=== PATIENT | female | born 1980 | race Caucasian/White ===

== ENCOUNTER 2021-08-11 12:35 | Outpatient (REF) | payer MEDICAID, SELFPAY ==
--- NOTE | ~2021-08-11 | MM_ITS ---
EXAMINATION: MM SCREENING DIGITAL BREAST TOMOSYNTHESIS, BILATERAL CLINICAL INFORMATION: Screening. Asymptomatic. Age 41. No prior breast imaging. Family history breast cancer, maternal grandmother. The lifetime risk of breast cancer based on the Tyrer-Cuzick Model is 22%. COMPARISON: None (current study represents initial baseline exam). TECHNIQUE: Digital breast tomosynthesis is performed in both the craniocaudal and mediolateral oblique views along with computer-aided detection (CAD). Synthesized 2D images are generated from the tomosynthesis. FINDINGS: There are scattered areas of fibroglandular density (ACR BI-RADS breast composition Category b). Right breast has a smooth nodule central 3:00 position mid depth approximately 0.7 x 0.6 cm, possibly a cyst or intramammary node. As this represents baseline exam, patient will be recalled for additional targeted ultrasound to further characterize. The remainder of the breasts show no significant mass or architectural abnormality. No abnormal calcifications. The axilla and skin contours are unremarkable. MM/MM tomosynthesis screening BI IMPRESSION: 1. Right: Nodule central 3:00 mid depth under 1 cm, possibly a cyst or intraparenchymal node. 2. Left: No mammographic evidence of malignancy. ASSESSMENT: BI-RADS 0: Incomplete - Need Additional Imaging Evaluation RECOMMENDATION: 1. Targeted ultrasound right breast. 2. Radiology department staff will contact the patient for additional imaging. 3. The lifetime risk of breast cancer based on the Tyrer-Cuzick Model is 22%. Additional annual adjunct screening with breast MRI may be of benefit in women with a risk score of 20% or greater. This patient's information was entered into a reminder system with a target due date for their next mammogram.
== END 2021-08-11 12:36 | disposition home or self-care (01) ==
LOC: HO.MAMMO 12:35
PROVIDERS: PCP Internal Medicine; Visit Provider Internal Medicine
DX: Z12.31 Encounter for screening mammogram for malignant neoplasm of breast (principal)
CPT/HCPCS: 77063; 77067

== ENCOUNTER 2021-08-17 13:12 | Outpatient (REF) | payer MEDICAID, SELFPAY ==
--- NOTE | ~2021-08-17 | US_ITS ---
EXAMINATION: US DIAGNOSTIC ULTRASOUND BREAST, RIGHT CLINICAL INFORMATION: Recall from baseline mammography for smooth nodule central 3:00 right breast, possibly cyst or intramammary node. TC score 22%. Age 41. COMPARISON: Baseline mammography 08/11/2021. TECHNIQUE: Ultrasound right breast is targeted to the central breast, interrogated from all 4 quadrants. Grayscale imaging and color Doppler are performed without and with harmonics. FINDINGS: There is a simple cyst central 3:00 position anterior breast measuring 0.6 cm corresponding to finding on mammography. There is mild increased through-transmission of sound. Margins are smooth. No associated color flow. There is no solid mass or architectural abnormality or focal duct ectasia. Results are discussed with the patient at time of visit. US/US breast RT limited IMPRESSION: Incidental cyst anterior central 3:00 position 0.6 cm corresponding to the nodule on mammography. ASSESSMENT: BI-RADS 2: Benign RECOMMENDATION: 1. Routine annual mammography screening. 2. The lifetime risk of breast cancer based on the Tyrer-Cuzick Model is 22%. Additional annual adjunct screening with breast MRI may be of benefit in women with a risk score of 20% or greater. This patient's information was entered into a reminder system with a target due date for their next mammogram.
== END 2021-08-17 13:13 | disposition home or self-care (01) ==
LOC: HO.MAMMO 13:12
PROVIDERS: PCP Internal Medicine; Visit Provider Internal Medicine
DX: N63.15 Unspecified lump in the right breast, overlapping quadrants (principal)
CPT/HCPCS: 76642

== ENCOUNTER 2021-10-08 13:54 | Outpatient (REF) | payer MEDICAID, SELFPAY ==
--- NOTE | ~2021-10-08 | US_ITS ---
EXAMINATION: US ABDOMEN COMPLETE CLINICAL INFORMATION: History of hepatitis C. COMPARISON: KUB dated 03/06/2009. CT of abdomen and pelvis with contrast dated 03/05/2009. TECHNIQUE: Real-time imaging of the abdominal viscera. FINDINGS: PANCREAS: Normal. ABDOMINAL AORTA: The proximal, mid, and distal segments are normal in caliber. INFERIOR VENA CAVA: Visualized portions are normal. LIVER: The liver is normal in size. The liver contour is normal. There is increased liver echogenicity. No focal hepatic lesion. There is no intrahepatic biliary duct dilatation seen. GALLBLADDER: Surgically absent. COMMON BILE DUCT: Normal in caliber measuring 0.4 cm in diameter. RIGHT KIDNEY: No hydronephrosis. No renal calculi or focal parenchymal lesions. The kidney measures 10.0 cm in maximum dimension. There is mild pelvic fullness. LEFT KIDNEY: Normal. No hydronephrosis. No renal calculi or focal parenchymal lesions. The kidney measures 9.7 cm in maximum dimension. SPLEEN: Normal. The spleen measures 10.2 cm in maximum dimension. FREE FLUID: None. US/US abdomen complete IMPRESSION: There is mild hepatic steatosis without focal lesion. There is mild pelvic fullness right kidney. The rest of the abdominal ultrasound is unremarkable.
== END 2021-10-08 13:55 | disposition home or self-care (01) ==
LOC: HO.US 13:54
PROVIDERS: Visit Provider Internal Medicine
DX: Z86.19 Personal history of other infectious and parasitic diseases (principal)
CPT/HCPCS: 76700

== ENCOUNTER 2022-09-23 13:52 | Outpatient (REF) | payer MEDICAID, SELFPAY ==
--- NOTE | ~2022-09-23 | MM_ITS ---
EXAMINATION: MM SCREENING DIGITAL BREAST TOMOSYNTHESIS, BILATERAL CLINICAL INFORMATION: Screening. Asymptomatic. The lifetime risk of breast cancer based on the Tyrer-Cuzick Model is 23%. COMPARISON: Mammography: 08/11/2021 (baseline); right breast ultrasound 08/17/2021. TECHNIQUE: Digital breast tomosynthesis is performed in both the craniocaudal and mediolateral oblique views along with computer-aided detection (CAD). Synthesized 2D images are generated from the tomosynthesis. FINDINGS: There are scattered areas of fibroglandular density (ACR BI-RADS breast composition Category b). There are no significant masses, abnormal calcifications, or other abnormalities. There is a small circumscribed cyst central mid 3:00 right breast decreased in size from baseline exam 2021. There is no developing density or architectural abnormality. The axilla are unremarkable. MM/MM tomosynthesis screening BI IMPRESSION: No mammographic evidence of malignancy. ASSESSMENT: BI-RADS 2: Benign RECOMMENDATION: Routine annual mammography screening. This patient's information was entered into a reminder system with a target due date for their next mammogram.
== END 2022-09-23 13:53 | disposition home or self-care (01) ==
LOC: HO.MAMMO 13:52
PROVIDERS: PCP Internal Medicine; Visit Provider Internal Medicine
DX: Z12.31 Encounter for screening mammogram for malignant neoplasm of breast (principal)
CPT/HCPCS: 77063; 77067

== ENCOUNTER 2023-03-15 09:55 | Outpatient (REF) | payer MEDICAID, SELFPAY | END 2023-03-15 09:56 | disposition home or self-care (01) | LOC: HO.CHCLDS 09:55 | PROVIDERS: Visit Provider Student in an Organized Health Care Education/Training Program | DX: F39 Unspecified mood [affective] disorder (principal) | CPT/HCPCS: 36415; 80048 ==

== ENCOUNTER 2024-07-25 16:42 | Emergency (ER) | payer OTHER, MEDICAID, SELFPAY ==
--- NOTE | ~2024-07-25 | CT_ITS ---
CLINICAL HISTORY: head injury at work, neck pain CT of the cervical spine without contrast. No comparison. Findings: No acute fractures are seen. There is no subluxation. Mild degenerative changes are noted. Impression: No acute fractures. This document has been electronically signed by: Adrián Khan MD on 07/25/2024 19:00:19
--- NOTE | ~2024-07-25 | CT_ITS ---
CLINICAL HISTORY: head injury at work CT of the head without contrast. No comparison. Findings: No acute hemorrhage or infarct is seen. No masses are identified and there is no hydrocephalus. There is no mass-effect. Impression: No acute intracranial abnormality is identified. This document has been electronically signed by: Adrián Khan MD on 07/25/2024 19:00:41
[2024-07-25 17:38] VITALS: BP 162/84; PULSE 91; RESP 18; TEMP 37.1; O2SAT 92; BMI 28.9
--- NOTE | 2024-07-25 17:38 | ED.GENADULT ---
HPI - General Adult General Chief complaint: Head Injury Stated complaint: head inj/work related Time Seen by Provider: 07/25/24 20:49 Source: patient and RN notes reviewed Mode of arrival: ambulatory Limitations: no limitations History of Present Illness ED Provider: She Jones PA-C HPI narrative: This is a 44-year-old female who presents emergency department with complaints of closed head injury which occurred this morning. Patient states that while she was working, a piece of ice fell on top of her head striking her in the head. She states initially she was struck in the head while wearing hard hat however this fell off and another piece of ice struck her in the head. She denies any lost of consciousness. She is not on anticoagulation. She states that she was feeling tired however states that her workday started at 3:00 a.m.. She denies any severe headache, dizziness, blurred vision, chest pain, shortness of breath, abdominal pain, nausea, vomiting or diarrhea. No other complaints or concerns at this time. MD complaint: Head injury Onset (ago): hour(s) Location: head Radiation: non-radiation Severity: moderate Quality: aching Pain Consistency: constant Relieving factors: none Exacerbating factors: none Associated symptoms: denies other symptoms Treatments prior to arrival: none Related Data Previous Rx's ?Medication ?Instructions ?Recorded acetaminophen 500 mg tablet 1,000 mg (2 x 500 mg) PO Q8H PRN 07/25/24 (Tylenol Extra Strength) pain #30 tabs ibuprofen 600 mg tablet 600 mg PO Q6H PRN pain #30 tabs 07/25/24 Allergies Allergy/AdvReac Type Severity Reaction Status Date / Time No Known Allergies Allergy Verified 07/25/24 17:40 Review of Systems Review of Systems: Yes all other systems are reviewed and are negative Constitutional: Constitutional: Reports as per [facility] Social History Social History (Updated 12/11/23 @ 11:39 by Germaine Perry) Patient Tobacco Use Status: Current everyday Tobacco user Do you have a plan to hurt others: No Plan Physical Exam ED Vital Signs: Vital Signs - 24 hr 07/25/24 17:38 Temperature 98.8 F Pulse Rate 91 Respiratory Rate 18 Blood Pressure 162/84 H Pulse Oximetry 92 Oxygen Delivery Method Room Air BMI result Body Mass Index 28.9 Const General: cooperative, comfortable and no acute distress Orientation/consciousness: patient oriented x3 Limitations: no limitations HENMT Head: Yes normal to inspection, Yes normocephalic and Yes atraumatic Ears: hearing grossly normal bilaterally and TM's normal bilaterally (No hemotympanum) General nose exam: Normal external nose present Face and sinus: Yes normal facial exam Mouth: Normal oral and palatal mucosa present, oropharynx normal and moist mucous membranes Throat: Yes posterior oropharynx normal Eyes General: appearance normal, both eyes and all related structures Eyelids: Yes eyelids normal Conjunctivae: conjunctivae normal Sclerae: sclerae normal Pupils: Equal, round and reactive pupils present EOM: EOMs intact bilaterally Neck Other: No midline spine tenderness on examination Neck: Yes normal visual inspection, Yes full ROM and Yes no lymphadenopathy Lymphatic: no lymphadenopathy noted Chest Chest palpation & inspection: normal inspection of the chest Resp Effort & Inspection: normal respiratory effort and able to speak in complete sentences Auscultation: clear to auscultation bilaterally, no crackles, no rales, no rhonchi and no wheezes Cardio Rate: regular rate Rhythm: regular rhythm Heart sounds: S1 normal heart sound present and S2 normal heart sound present GI Inspection: Yes normal to inspection Skin General skin exam: no rashes or lesions noted Trauma: no lacerations or abrasions Wounds: no wounds Neuro General: patient oriented x3 and moves all extremities Cranial nerves: Yes Equal, round and reactive pupils present Extrem General: Yes normal to inspection Right upper extremity: normal to inspection Left upper extremity: normal to inspection Right lower extremity: normal to inspection Left lower extremity: normal to inspection Course Course Course Narrative: This is a rapid medical exam performed by Bossman Pereira NP: Additional HPI, ROS, PE not included below will be deferred to primary provider. Patient is a 44-year-old female presenting with complaint of head injury sustained at work. Ice fell from the top of a tractor trailer, striking her in the head. States the ice was 2-3 thick. Denies LOC. Not anticoagulated. Hematoma to left forehead. Plan: CT head Medical Decision Making Medical Decision Making [facility] Narrative: This is a 44-year-old female who presents emergency department with complaints of head injury which occurred at work today. On arrival, blood pressure elevated at 162/84, all other vital signs within normal limits. Patient is alert and oriented x4, no neurologic deficits on examination. Patient has mild tenderness palpation along the left frontal scalp, with hematoma noted. She was no bony step-off or deformity. No hemotympanum. CT scan of her head and C-spine were obtained which revealed no acute findings. Discussed findings with patient. Given that she has a normal neurologic examination, and does not have severe headache, dizziness, patient can be discharged home with strict return precautions. She understands and agrees with plan. Patient stable for discharge. Differential Diagnosis Differential Diagnoses: The differential diagnosis associated with the presentation includes Closed head injury, ICH, SDH, concussion Discharge Plan Discharge Clinical Impression: Closed head injury Patient Disposition: Home, Self-Care Instructions: Head Injury (ED) Additional Instructions: You were seen in the emergency department due to a head injury. Your CT scan of your head and neck do not show any new injury from the injury that occurred while at work today. Please give yourself plenty of physical and mental rest. You may develop some mild headaches, and more fatigue, this is often times seen after hitting your head. Physical and mental rest can help alleviate some of the symptoms. Avoid prolonged screen time. If any new or worsening symptoms occur including but not limited to severe headache, severe dizziness, changes in your vision, severe nausea and vomiting, please seek emergent care. You may take ibuprofen and or Tylenol as needed for your symptoms. Please apply an ice pack to the left side of your forehead. Prescriptions: New ibuprofen 600 mg tablet 600 mg PO Q6H PRN (Reason: pain) Qty: 30 0RF acetaminophen [Tylenol Extra Strength] 500 mg tablet 1,000 mg PO Q8H PRN (Reason: pain) Qty: 30 0RF Print Language: Maori
--- OUTSIDE RECORDS SUMMARY | 2024-07-25 21:01 | XMS_ITS | Encounter Summary ---
Author Organization [employer] Address [address] [place] [address] Care Team Providers Care Histologic Aide Name Role Phone Demetrio Gonzales MD Primary Care Prov ider Encounter Details Date Type Department Care Team (Late st Contact Info) Description 07/25/2024 Orders Only [facility] External Provider, [facility] Social History Tobacco Use Types Packs/Day Years Used Date Smoking Tobacco: Every Day Cigarettes 0.3 33.1 Started: 06/05/1991 Smokeless Tobacco: Never Depression Answer Date Recorded Patient Health Questionnaire-9 Score 0 11/02/2022 Housing Stability Answer Date Recorded What is your housing situation today? I have ady diamond 04/10/[address] you li ve. Do you have problems with any of the following? None of the above 04/10/2023 Food Insecurity Answer Date Recorded Within the past 12 months, y ou worried that your food would run out before you got money to buy more: Never True 04/10/2023 Within the past 12 months,th e food you bought just didn't last and you didn't have enough money to get more: Never True 11/2022 Transportation Answer Date Recorded In the past 12 months, has l ack of transportation kept you from medical appts, meetings, work or from getting things needed for daily living? No 04/10/2023 Utilities Answer Date Recorded In the past 12 months, has t he electric, gas, oil or water company threatened to shut off services in your home? No 04/10/2023 Depression Answer Date Recorded Patient Health Questionnaire-2 Score 0 11/02/2022 Comments Unknown Sex and Gender Information Value Date Recorded Sex Assigned at Female 04/04/2022 10:17 AM EDT Legal Sex Female 10:17 AM EDT Gender Identity Female 04/04/2022 10:17 AM EDT Sexual Orientation Don't know 04/04/2022 10 :17 AM EDT documented as of this encounter Plan of Treatment Not on file documented as of this encounter Procedures Procedure Name Priority Date/Time Associated Diagnosis Comments CT CERVICAL SPINE WO CONTRAST Routine 07/25/2024 7:[address] HEAD WO CONTRAST Routine 07/25/2024 7 :00 PM EST documented in this encounter Results * CT Head w/o Contrast (07/25/2024 7:00 PM EST) Anatomical Region Laterality Modality Head, Neck Computed Tomogra phy 07/25/2024 7:00 PM EST Narrative 07/25/2024 7:02 PM EST ? [facility] ?[address] ?[place] [address] ? CT Scan Report ? Signed ? Patient: Ting Gallowaysa ?MR#: [id number] ? : 1980 ?Acct:[id number] ? Age/Sex: 44 / F ?ADM Date: 07/25/24 ? Loc: HO.ED ? Attending Dr: ? Ordering Physician: Lea Pereira [employer]CH[employer]IC ?? Date of Service: 07/25/24 ?? Procedure(s): CT head/brain wo IV con ?? Accession Number(s): [id number] ? cc: Demetrio Gonzales MD; Lea Pereira NP ? Report Number: ?? [id number]: Total DLP = ??653.17 mGy-cm ? CLINICAL HISTORY: head injury at work ? CT of the head without contrast. ? No comparison. ? Findings: ?? No acute hemorrhage or infarct is seen. No masses are identified and there ?? is no hydrocephalus. There is no mass-effect. ? Impression: ?? No acute intracranial abnormality is identified. ? This document has been electronically signed by: Adrián Khan MD on ?? 07/25/2024 19:00:41 ? Dictated By: ?Juan Manuel Chowdhury MD ? Signed By: ?<Electronically signed by Juan Manuel Chowdhury MD in OV> ?07/25/24 1901 ? DD/ 1900 ? TD/TT: 07/25/241899 ? Application Support Administrator: ? Procedure Note Pat, Image - 07/25/[address] [address] [address] Scan Report Signed Patient: Anne GallowayMR#: [id number] : 1980Acct:[id number] Age/Sex: 44 / FADM Date: 07/25/24 Loc: HO.ED Attending Dr: Ordering Physician: Lea Pereira NP Date of Service: 07/25/24 Procedure(s): CT head/brain wo IV con Accession Number(s): [id number] cc: Demetrio Gonzales MD; Lea Pereira NP Report Number: [id number]: Total DLP = 653.17 mGy-cm CLINICAL HISTORY: head injury at work CT of the head without contrast. No comparison. Findings: No acute hemorrhage or infarct is seen. No masses are identified and there is no hydrocephalus. There is no mass-effect. Impression: No acute intracranial abnormality is identified. This document has been electronically signed by: Adrián Khan MD on 07/25/2024 19:00:41 Dictated By: Juan Manuel Chowdhury MD Signed By: <Electronically signed by Juan Manuel Chowdhury MD in OV> 07/25/241900 DD/ 99 TD/TT: 07/25/241899 Application Support Administrator: us [facility] External Provider IMG CT PROCEDURES Edited Result - Final * CT Cervical Spine w/o Contrast (07/25/2024 7:00 PM EST) Anatomical Region Laterality Modality Spine, C-spine Computed Tomogra phy 07/25/2024 7:0 0 PM EST Narrative 07/25/2024 7:01 PM EST ? [facility] ?[address] ?[place] [address] ? CT Scan Report ? Signed ? Patient: Galloway,Anne ?MR#: [id number] ? : 1980 ?Acct:[id number] ? Age/Sex: 44 / F ?ADM Date: 07/25/24 ? Loc: HO.ED ? Attending Dr: ? Ordering Physician: Lea Pereira NP ?? Date of Service: 07/25/24 ?? Procedure(s): CT cervical spine wo IV con ?? Accession Number(s): [id number] ? cc: Demetrio Gonzales MD; Lea Pereira NP ? Report Number: ?? [id number]: Total DLP = ??302.69 mGy-cm ? CLINICAL HISTORY: head injury at work, neck pain ? CT of the cervical spine without contrast. ? No comparison. ? Findings: ?? No acute fractures are seen. There is no subluxation. Mild degenerative ?? changes are noted. ? Impression: ?? No acute fractures. ? This document has been electronically signed by: Adrián Khan MD on ?? 07/25/2024 19:00:19 ? Dictated By: ?Juan Manuel Chowdhury MD ? Signed By: ?<Electronically signed by Juan Manuel Chowdhury MD in OV> ?07/25/24 1901 ? DD/ 1900 ? TD/TT: 07/25/24 1900 ? Application Support Administrator: ? Procedure Note Pat, Image - 07/25/[address] [place] [address] [address] Scan Report Signed Patient: Patrick Galloway#: [id number] : 1980Acct:[id number] Age/Sex: 44 / FADM Date: 07/25/24 Loc: HO.ED Attending Dr: Ordering Physician: Lea Pereira NP Date of Service: 07/25/24 Procedure(s): CT cervical spine wo IV con Accession Number(s): [id number] cc: Demetrio Gonzales MD; Lea Pereira NP Report Number: [id number]: Total DLP = 302.69 mGy-cm CLINICAL HISTORY: head injury at work, neck pain CT of the cervical spine without contrast. No comparison. Findings: No acute fractures are seen. There is no subluxation. Mild degenerative changes are noted. Impression: No acute fractures. This document has been electronically signed by: Adrián Khan MD on 07/25/2024 19:00:19 Dictated By: Juan Manuel Chowdhury MD Signed By: <Electronically signed by Juan Manuel Chowdhury MD in OV> 07/25/241900 DD/ 99 TD/TT: 07/25/241899 Application Support Administrator: [facility] External Provider IMG CT PROCEDURES Edited Result - Final documented in this encounter Visit Diagnoses Not on filedocumented in this encounter Additional Health Concerns Assessment Noted Time PHQ-9 Depression Total Score: 0 11/03/19 23 11:18 AM EDT documented as of this encounter Care Teams Histologic Aide Relationship Specialty Start Date End Date Demetrio Gonzales MD [address] [place] [id number] PCP - General Internal Medicine 03/27/19 documented as of this encounter
--- OUTSIDE RECORDS SUMMARY | 2024-07-25 21:01 | XMS_ITS | Encounter Summary ---
Author Organization [employer] Address [address] [facility] [address] [place] [address] Care Team Providers Care Engineer Station Mainline Name Role Phone Demetrio Gonzales MD Primary Care Prov ider Reason for Visit * Reason Onset Date Comments Med Refill 05/16/2023 Encounter Details Date Type Department Care Team ([facility] st Contact Info) Description 05/16/2023 Refill [facility] [address] [place] [address] Beronica Partida MD [address] [place] [address] Mild intermittent asthma without complication Social History Tobacco Use Types Packs/Day Years [...] on file documented as of this encounter Visit Diagnoses Diagnosis Mild intermittent asthma without complication documented in this encounter Additional Health Concerns Assessment Noted Time PHQ-9 Depression Total Score: 0 11/03/19 23 11:18 AM EDT documented as of this encounter Care Teams Engineer Station Mainline Relationship Specialty Start Date End Date Demetrio Gonzales MD [address] [place] [id number] PCP - General Internal Medicine 03/27/19 documented as of this encounter
--- OUTSIDE RECORDS SUMMARY | 2024-07-25 21:01 | XMS_ITS | Clinical Summary ---
Author Organization [employer] Address [address] [facility] [address] [place] [address] Care Team Providers Care Hotel Supplies Salesperson Name Role Phone Demetrio Gonzales MD Primary Care Prov ider Allergies No known active allergies Medications * This document contains information received from the source organization and may not represent a complete record from that organization. nicotine polacrilex (Nicorette) 2 MG gum Take by mouth every 2 (two) hours. 02/03/2022 Active cetirizine (ZyrTEC) 10 MG tabletIndications :Mild intermittent asthma without complication Take 1 tablet (10 mg) by mouth Once per day. 90 tablet 3 02/29/2024 02/29/20 25 Active nicotine (Nicoderm, Step 3) 7 MG/24HR patchIndications: Moderate asthma with exacerbation, unspecified whether persistent Place 1 patch on the skin 1 (one) time each day at the same time. 30 patch 05/24/2024 Active albuterol (Ventolin HFA) 108 (90 Base) MCG/ACT inhaler Inhale 2 puffs every 4 (four) hours if needed for wheezing. 18 g 1 05/27/2024 05/27/20 25 Active Active Problems Problem Noted Date Diagnosed Date Moderate asthma with exacerbation 05/24/2024 Assessment & Plan (05/25/2024 2:38 PM EST): Pt with significant wheeze in all lobes, denies associated infectious symptoms Pt has resumed smoking tobacco but is motivated to quit. Denies sputum Rx for presdnisone burst/taper which pt reports hx tolerating. X-ray not available at time of visit, pt should seek urgent care for worsening symptoms or failure to improve Chronic bipolar disorder 03/26/2024 Schizophrenia 03/26/2024 Tobacco dependence 03/26/2024 Assessment & Plan (05/25/2024 2:39 PM EST): Pt is motitaved to quit has had success with patches, patches prescribed Pain in right ankle 03/26/2024 Meralgia paresthetica, right lower limb 03/26/20 24 Hx of cholecystectomy 03/26/2024 History of migraine 03/26/2024 Class 1 obesity 03/26/2024 Asthma 03/26/2024 Arthropathy of knee 03/26/2024 Grief 02/29/2024 Assessment & Plan (02/29/2024 2:36 PM EDT): Patient lost her mom on December, willl refer to for support Screening for colon cancer 05/30/2023 Assessment & Plan (05/30/2023 12:42 PM EST): Will place GI referral for screening colon cancer Hx of hepatitis C 11/02/2022 Assessment & Plan (11/02/2022 11:36 AM EDT): Patient was sucessfully treated for hepatitis c, will order afb and liver ultrasound Chronic thumb pain, right 11/02/2022 Assessment & Plan (11/02/2022 11:38 AM EDT): Will order xray, patient refers it got twisted while lifting a object, told to rest joint, apply cold pads and take NSAIds as needed. Screening for cervical cancer 11/02/2022 Assessment & Plan (02/29/2024 2:34 PM EDT): Will send for a pap smear Assessment & Plan (11/02/2022 11:38 AM EDT): Will refer for a pap smear Encounter for immunization 05/19/2022 Acute right-sided low back pain with right-sided sciatica 05/10/2022 Overview (05/10/2022): Anne is here for injury at work when carrying a fridge. Injury happened 04/12/22. Attending PT at [facility] 2 x a week. Pain slightly better only. Smoker 05/09/2022 Assessment & Plan (02/29/2024 2:34 PM EDT): Patient stop smoking, but now restarted due to life stressors, she wants to quit will send nicotine patches, benefits discussed Assessment & Plan (05/30/2023 12:43 PM EST): Smoking 2-3 cig a day, encouraged to stop smoking, Mild intermittent asthma 05/09/2022 Assessment & Plan (02/29/2024 2:33 PM EDT): On albuterol rescue, using it less than 2 times a week, will renew medication Assessment & Plan (05/30/2023 12:43 PM EST): On albuterol rescue as needed, using it less than once a week Resolved Problems Problem Noted Date Diagnosed Date Resolved Date Mood disorder 05/09/2022 03/26/2024 Encounters Date Type Department Care Team Description 07/25/2024 Orders Only [facility] External Provider, [facility] 05/24/2024 3:40 PM EST Office Visit [facility] [address] [place] [address] Domitila Gerber NP Moderate asthma with exacerbation, unspecified whether persistent (Primary Dx); Tobacco dependence 05/24/2024 Refill [facility] [address] [place] [address] Demetrio Gonzales MD 05/24/2024 Travel from Last 3 Months Immunizations Name Administration Dates Next Due Influenza injectable quadriv alent IIV4 with preservative 03/25/2019 Influenza injectable quadrivalent preservative f ree 03/05/2020 Influenza, IIV3, injectable 03/05/2020 Influenza, seasonal, injectable, preservative fr ee 05/13/2022 Pneumococcal Polysaccharide PPSV23 03/05/2020 Tdap 07/25/2019,10/08/2014 Family History Medical History Relation Name Comments Diabetes Father Diabetes Mother Thyroid cancer Mother Cancer Sister Relation Name Status Comments Father Mother Sister Social History Tobacco Use Types Packs/Day Years Used Date Smoking Tobacco: Every Day Cigarettes 0.3 33.1 Started: 06/05/1991 Smokeless Tobacco: Never Tobacco Cessation:Ready to Q uit: Not Asked; Counseling Given: Not Answered Depression Answer Date Recorded Patient Health Questionnaire-9 [...] Don't know 04/04/2022 10 :17 AM EDT Last Filed Vital Signs Vital Sign Reading Time Taken Comments Blood Pressure 142/93 05/24/2024 3:41 PM EST Pulse 100 05/24/2024 3:41 PM EST Temperature 36.6 ??C (97.8 ??F) 05/24/2024 3:41 PM ES T Respiratory Rate 20 05/24/2024 3:41 PM EST Oxygen Saturation 95% 05/24/2024 3:41 PM EST Inhaled Oxygen Concentration - - Weight 77.8 kg (171 lb 9.6 oz) 05/24/2024 3:41 P M EST Height 158.8 cm (5' 2.5 ) 05/24/2024 3:41 PM EST Body Mass Index 30.89 05/24/2024 3:41 PM EST Plan of Treatment Health Maintenance Due Date Last Done Comments CT Colonography 1978 Colonoscopy 1978 Colorectal Cancer Screening 1978 FIT DNA/Cologuard 1978 FIT 1978 FOBT 1978 Sigmoidoscopy 1978 Alcohol/Substance Use Screening 1990 Family Planning (PISQ) 1993 Hepatitis A Vaccines (1 of 2 - Risk 2-dose series) 1997 Hepatitis B Vaccines (1 of 3 - 19+ 3-dose series) 1997 Pap Smear 1999 Cervical Cancer Screening 02/22/2008 HPV/Cotest 02/22/2008 Pneumococcal Vaccine: Pediatrics (0 to 5 Years) and At-Risk Patients (6 to 49) Years) (2 of 2 - PCV) 03/05/2021 03/05/2020 Depression Screening 11/03/2023 11/02/2022, 11/03/19 23 SDOH Screening 11/03/2023 11/02/2022 COVID-19 Vaccine ( - season) 2024 Influenza Vaccine (#1) 2024 2, 03/05/2020, 03/05/2020, Additional history exists Mammogram 09/23/2024 09/23/2022, 03/0 02/2022, 08/11/2021 Tobacco Screening 05/24/2025 05/24/2024 Lipid Panel 11/19/2027 11/18/2022 Zoster Vaccines (1 of 2) 02/22/2028 DTaP/Tdap/Td Vaccines (3 - Td or Tdap) 07/25/2029 07/25/2019, 10/08/2014 RSV Patients and Patients Aged 60 years or older (1 - 1-dose 75+ series) 2053 HIV Screening Completed 11/18/2022 HIB Vaccines Aged Out No longer eligi ble based on patient's age to complete this topic HPV Vaccines Aged Out No longer eligi ble based on patient's age to complete this topic IPV Vaccines Aged Out No longer eligi ble based on patient's age to complete this topic Meningococcal Vaccine Aged Out No kenisha tong eligible based on patient's age to complete this topic RSV under 20 months Aged Out No longe r eligible based on patient's age to complete this topic Rotavirus Vaccines Aged Out No longer eligible based on patient's age to complete this topic Procedures Procedure Name Priority Date/Time Associated Diagnosis Comments CT HEAD WO CONTRAST Routine 07/25/2024 7 :[address] CERVICAL SPINE WO CONTRAST Routine 07/25/2024 7:00 PM EST HIV 1 RNA, QN PCR W/RFL CAROL (RTI,PI,INTEGRASE) Routine 11/18/2022 11:28 AM EDT Hx of hepatitis C LIPID PANEL, STANDARD Routine 11/18/2022 11:28 AM EDT Hx of hepatitis C BI MAMMOGRAM SCREENING TOMOSYNTHESIS BILATERAL Routine 09/23/2022 2:15 PM EDT from Last 3 Months or Most Recently Relevant to Health Maintenance Results * CT Cervical Spine w/o Contrast (07/25/2024 7:00 PM EST) Anatomical Region Laterality Modality Spine, C-spine Computed Tomogra phy 07/25/2024 7:00 PM EST Narrative 07/25/2024 7:01 PM EST ? [facility] ?[address] ?[place] [address] ? CT Scan Report ? Signed ? Patient: Galloway,Anne ?MR#: [id number] ? : 1980 ?Acct:[id number] ? Age/Sex: 44 / F ?ADM Date: 02/20/25 ? Loc: HO.ED ? Attending Dr: ? Ordering Physician: Lea Pereira NP ?? Date of Service: 07/25/24 ?? Procedure(s): CT cervical spine wo IV con ?? Accession Number(s): [id number] ? cc: Demetrio Gonzales MD; Lea Pereira NP ? Report Number: ?? [id number]: Total DLP = ??302.69 mGy-cm ? CLINICAL [...] DD/ 1900 ? TD/TT: 07/25/24 1900 ? Business Dean: ? Procedure Note Donsullymaliageoffter, Image - 07/25/[address] [place] [address] [address] Scan Report Signed Patient: Patrick Galloway#: [id number] : 1980Acct:[id number] Age/Sex: 44 / FADM Date: 07/25/24 Loc: HO.ED Attending Dr: Ordering Physician: Lea Pereira NP Date of Service: 07/25/24 Procedure(s): CT cervical spine wo IV con Accession Number(s): [id number] cc: Demetrio Gonzales MD; Lea Pereira NP Report Number: [id number]: Total DLP = 302.69 mGy-cm CLINICAL HISTORY: [...] by Juan Manuel Chowdhury MD in OV> 07/25/24 190 DD/ 99 TD/TT: 07/25/241899 Business Dean: us [facility] External Provider IMG CT PROCEDURES Edited Result - Final * CT Head w/o Contrast (07/25/2024 7:00 PM EST) Anatomical Region Laterality Modality Head, Neck Computed Tomogra phy 07/25/2024 7:00 PM EST Narrative 07/25/2024 7:02 PM EST ? [facility] ?[address] ?[place], [place] [address] ? CT Scan Report ? Signed ? Patient: Anne Galloway ?MR#: [id number] ? : 1980 ?Acct:[id number] ? Age/Sex: 44 / F ?ADM Date: 07/25/24 ? Loc: HO.ED ? Attending Dr: ? Ordering Physician: Lea Pereira NP ?? Date of Service: 07/25/24 ?? Procedure(s): CT head/brain wo IV con ?? Accession Number(s): [id number] ? cc: Demetrio Gonzales MD; Lea Pereira NP ? Report Number: ?? [id number]: Total DLP = ??653.17 mGy-cm ? CLINICAL [...] DD/ 1900 ? TD/TT: 07/25/24 1900 ? Business Dean: ? Procedure Note Joe Stewart - 07/25/[address] [place] [address] CT Scan Report Signed Patient: Anne Galloway#: [id number] : 1980Acct:[id number] Age/Sex: 44 / FADM Date: 07/25/24 Loc: HO.ED Attending Dr: Ordering Physician: Lea Pereira NP Date of Service: 07/25/24 Procedure(s): CT head/brain wo IV con Accession Number(s): [id number] cc: Demetrio Gonzales MD; Lea Pereira NP Report Number: [id number]: Total DLP = 653.17 mGy-cm CLINICAL HISTORY: [...] in OV> 07/25/241900 DD/ 99 TD/TT: 07/25/241899 Business Dean: [facility] External Provider IMG CT PROCEDURES Edited Result - Final * HIV-1 RNA, Quantitative, Real-Time PCR with Reflex to Genotype (RTI, PI, Integrase) (11/18/2022 11:28 AM EDT) HIV 1 RNA, QN PCR NOT DETECTED copies/mL [facility], HIV 1 RNA, QN PCR NOT DETECTED Log copies/mL [facility], Comment: REFERENCE RANGE: NOT DETECTED copies/mL ?NOT DETECTED ??Log copies/mL This test was performed using Real-Time Polymerase Chain Reaction. Reportable range is 20 to 10,000,000 copies/mL (1.30-7.00 Log copies/mL). 11/18/2022 11:2 8 AM EDT 11/18/2022 11:28 AM EDT Narrative [facility] - 11/24/2022 8:03 PM EDT FASTING:UNKNOWN FASTING: UNKNOWN Demetrio Gallegos MD LAB BLOOD ORDERABL ES Final Result [facility] [address] [facility], [place] [address] [employer], [id number] [place] [phone] * (ABNORMAL) Lipid Panel, Standard (11/18/2022 11:28 AM EDT) [facility] Cholesterol, Total 154 <200 mg/dL [employer] [place] [employer] HDL Cholesterol 49(L) > OR = 50 mg/dL [employer] Triglycerides 53 <150 mg/dL [employer] LDL Cholesterol 91 mg/dL (calc) [employer] [place] [employer] Comment: Reference range: <100 Desirable range <100 mg/dL for primary prevention; ?? <70 mg/dL for patients with CHD or diabetic patients with > or = 2 CHD risk factors. LDL-C is now calculated using the Dayday-Levy calculation, which is a validated novel method providing better accuracy than the Friedewald equation in the estimation of LDL-C. Dayday CASIANO et al. MILAGRO. 2013;310(19): 4651-2818 (http://education.Convoke Systems.Powtoon/faq/AND445) Chol/HDLC Ratio 3.1 <5.0 (calc) [employer] [place] [employer] Non-HDL Cholesterol 105 <130 mg/dL (calc) [employer] Comment: For patients with diabetes plus 1 major ASCVD risk factor, treating to a non-HDL-C goal of <100 mg/dL (LDL-C of <70 mg/dL) is considered a therapeutic option. Blood Venous blood specimen / Unknown 11/18/2022 11:28 AM EDT 11/18/2022 11:28 AM EDT Narrative [facility] - 11/24/2022 8:03 PM EDT FASTING:UNKNOWN FASTING: UNKNOWN us Demetrio Gallegos MD LAB BLOOD ORDERABL ES Final Result [facility] [address] [facility], [place] [address] [employer] [facility] [place] [facility] [address] [place] [address] * BI Mammogram Screening Tomosynthesis Bilateral (09/23/2022 2:15 PM EDT) Anatomical Region Laterality Modality Breast Bilateral Mammography 09/23/2022 2:15 PM EDT Narrative 09/27/2022 7:27 AM EDT ? [facility] ? [address] ?[place] [address] ? Mammography Report ? Signed ? Patient: Galloway,Anne ?MR#: [id number] ? : 1980 ?Acct:[id number] ? Age/Sex: 42 / F ?ADM Date: 09/23/22 ? Loc: HO.MAMMO ? Attending Dr: Demetrio Gallegos MD ? Ordering Physician: Demetrio Gonzales MD ?Res ?? ults: 2Benign Findings ? Date of Service: 09/23/22 ?Follow Up: 1 Year From Orig ?? inal Mammogram ? Procedure(s): MM tomosynthesis screening BI ?? Accession Number(s): [id number] ? cc: Demetrio Gonzales MD ? EXAMINATION: ?? MM SCREENING DIGITAL BREAST TOMOSYNTHESIS, BILATERAL ? CLINICAL INFORMATION: ? Screening. Asymptomatic. ? The lifetime risk of breast cancer based on the Tyrer-Cuzick Model is ?? 23%. ? COMPARISON: ?? Mammography: 08/11/2021 (baseline); right breast ultrasound 08/17/2021. ? TECHNIQUE: ?? Digital breast tomosynthesis is performed in both the craniocaudal and ?? mediolateral oblique views along with computer-aided detection (CAD). ?? Synthesized 2D images are generated from the tomosynthesis. ? FINDINGS: ?? There are scattered areas of fibroglandular density (ACR BI-RADS breast ?? composition Category b). ? There are no significant masses, abnormal calcifications, or other ?? abnormalities. ?? There is a small circumscribed cyst central mid 3:00 ?? right breast decreased in size from baseline exam 2021. There is no ?? developing density or architectural abnormality. The axilla are ?? unremarkable. ? MM/MM tomosynthesis screening BI ?? IMPRESSION: ?? No mammographic evidence of malignancy. ? ASSESSMENT: ? BI-RADS 2: Benign ? RECOMMENDATION: ?? Routine annual mammography screening. ? This patient's information was entered into a reminder system with a ?? target due date for their next mammogram. ? Dictated By: ?Chino Lin MD ? Signed By: ?<Electronically signed by Chino Lin MD in OV> ?09/27/22723 ? DD/ 1415 ? TD/TT: ? Business Dean: MONIQUE ? Procedure Note Joe Stewart - 12/01/2022 [facility] [address] [place] [address] [address], [place] [address] Mammography Report Signed Patient: Anne GallowayMR#: [id number] : 1980Acct:[id number] Age/Sex: 42 / FADM Date: 09/23/22 Loc: HO.MAMMO Attending Dr: Demetrio Gallegos MD Ordering Physician: Demetrio Gonzales ults: 2Benign Findings Date of Service: 09/23/22Follow Up: 1 Year From Orig inal Mammogram Procedure(s): MM tomosynthesis screening BI Accession Number(s): [id number] cc: Demetrio Gonzales MD EXAMINATION: MM SCREENING DIGITAL BREAST TOMOSYNTHESIS, BILATERAL CLINICAL INFORMATION: Screening. Asymptomatic. The lifetime risk of breast cancer based on the Tyrer-Cuzick Model is 23%. COMPARISON: Mammography: 08/11/2021 (baseline); right breast ultrasound 08/17/2021. TECHNIQUE: Digital breast tomosynthesis is performed in both the craniocaudal and mediolateral oblique views along with computer-aided detection (CAD). Synthesized 2D images are generated from the tomosynthesis. FINDINGS: There are scattered areas of fibroglandular density (ACR BI-RADS breast composition Category b). There are no significant masses, abnormal calcifications, or other abnormalities. There is a small circumscribed cyst central mid 3:00 right breast decreased in size from baseline exam 2021. There is no developing density or architectural abnormality. The axilla are unremarkable. MM/MM tomosynthesis screening BI IMPRESSION: No mammographic evidence of malignancy. ASSESSMENT: BI-RADS 2: Benign RECOMMENDATION: Routine annual mammography screening. This patient's information was entered into a reminder system with a target due date for their next mammogram. Dictated By: Chino Lin MD Signed By: <Electronically signed by Chino Lin MD in OV> 09/27/22 0724 DD/ 1415 TD/TT: Business Dean: MONIQUE [facility] External Provider IMG BI PROCEDURES Final Result from Last 3 Months or Most Recently Relevant to Health Maintenance Insurance [facility] C3 GENERIC TPL on file * Guarantor: Anne Kirkland Account Type Relation to Patient Date of Phone Billing Address Personal/Family Self [place], [place] Care Teams Hotel Supplies Salesperson Relationship Specialty Start Date End Date Demetrio Gonzales MD [address] [place] [phone] PCP - General Internal Medicine 03/27/19
--- OUTSIDE RECORDS SUMMARY | 2024-07-25 21:01 | XMS_ITS | Clinical Summary ---
Author Organization [facility] [employer] [facility] Address [address] [place] [address] Care Team Providers Care Manager Assessment Name Role Phone Unavailable Primary Care Provider Unavailabl e Allergies No known active allergies Medications No known medications Social History Tobacco Use Types Packs/Day Years Used Date Smoking Tobacco: Every Day Smokeless Tobacco: Never Tobacco Cessation:Ready to Q uit: Yes; Counseling Given: Yes Comments Unknown Sex and Gender Information Value Date Recorded Sex Assigned at Not on file Legal Sex Female 5:06 PM EST Gender Identity Not on file Sexual Orientation Not on file Last Filed Vital Signs Vital Sign Reading Time Taken Comments Blood Pressure 124/82 07/08/2021 11:54 AM EST Pulse 88 07/08/2021 11:54 AM EST Temperature 36.8 ??C (98.2 ??F) 07/08/2021 11:[address] Respiratory Rate 18 07/08/2021 11:54 AM EST Oxygen Saturation 98% 07/08/2021 11:54 AM EST Inhaled Oxygen Concentration - - Weight 77.1 kg (170 lb) 07/08/2021 11:54 AM EST Height 160 cm (5' 3 ) 07/08/2021 11:54 AM EST Body Mass Index 30.11 07/08/2021 11:54 AM EST Plan of Treatment Health Maintenance Due Date Last Done Comments Colorectal Cancer: COLONOSCO PY Screening every 10 yrs (or Modifier) 1978 Depression: Screening Annual ly using PHQ-2/9 in Adults 18 yrs or above (or HM Modifier)([facility]) 02/22/1996 Hepatitis C Virus Infection in Adolescents and Adults: Screening (or Modifier) ([facility]) 02/22/1996 SDOH Screening Reminder: Aruna alex for all adults ([facility]) 02/22/1996 Tobacco Smoking Cessation: i n Adults excluding Women: Behavioral and Pharmacotherapy Interventions ([facility]) 02/22/1996 DTaP/Tdap/Td Vaccines ([facility]) (1 - Tdap) 1997 Cervical Cancer Screenin 1-65 yrs of age (or Modifier) 1999 Cervical Cancer Screening: P ap every 3 yrs pts age 21-65 1999 Cervical Cancer: Pap Screeni ng with Modifier timing ([facility]) 1999 Cervical Cancer: hrHPV alone or with cotesting Pap for Pts 30-65yrs screening every 5yrs ([facility]) 1999 Colorectal Cancer Screening 45 -75 Yrs (or HM Modifier) 2023 Colorectal Cancer: FLEXIBLE SIGMOIDOSCOPY Screening every 5 yrs 2023 Colorectal Cancer: Fecal Immunochemical Test (FIT) Annually [facility] 2023 Colorectal Cancer: High-sens itivity gFOBT Screening Annually [facility] 2023 Colorectal Cancer: Stool Col oguard Screening every 3 yrs 2023 Colorectal Cancer:CT Colonog rosalia Screening every 5 yrs 2023 Flu Vaccination: Yearly for ages 18mos through 64 years (or Modifier)([facility]) 01/04/2024 COVID-19 Vaccine Screening: Initial Series and Booster Status ([facility]) ( - 2023- season) 2024 Lipid Screening: Every 5 yrs for Women aged 45+ (or HM Modifier) ([facility]) 02/22/2024 Zoster/Shingles Vaccine Seri es Screening: Adults aged 18+ yrs (or HM Modifiers)([facility]) (1 of 2) 02/22/2028 Pneumococcal Vaccination Scr eening: Pts 0-19 & 19-64 yrs of age ([facility]) Aged Out No longer eligible based on patient's age to complete this topic Medical Devices Not on file
--- OUTSIDE RECORDS SUMMARY | 2024-07-25 21:01 | XMS_ITS | Clinical Summary ---
Author Organization [facility] Address [address] [place] [address] Care Team Providers Care Yard Assistant Name Role Phone Patient, Has No Pcp Or Ref Primary Care Provider Unavailable Allergies No known active allergies Medications ondansetron (ZOFRAN ODT) 4 mg disintegrating tablet Dissolve 1 tablet (4 mg total) in the mouth every 8 hours as needed for vomiting or nausea. 12 tablet Active Social History Tobacco Use Types Packs/Day Years Used Date Smoking Tobacco: Some Days Cigarettes Smokeless Tobacco: Never Tobacco Cessation:Ready to Q uit: Not Asked; Counseling Given: Not Answered Alcohol Use Standard Drinks/Week Comments Yes 0 (1 standard drink = 0.6 oz pur e alcohol) Comments Unknown Sex and Gender Information Value Date Recorded Sex Assigned at Female 03/28/2024 12:23 AM EDT Legal Sex Female 9:14 PM EDT Gender Identity Not on file Sexual Orientation Not on file Last Filed Vital Signs Vital Sign Reading Time Taken Comments Blood Pressure 136/86 03/28/2024 12:44 AM EDT Pulse 89 03/28/2024 12:44 AM EDT Temperature 36.7 ??C (98 ??F) 03/27/2024 9:35 PM EDT Respiratory Rate 20 03/28/2024 12:44 AM EDT Oxygen Saturation 99% 03/28/2024 12:44 AM EDT Inhaled Oxygen Concentration - - Weight 77.1 kg (170 lb) 03/27/2024 9:38 PM EDT Height - - Body Mass Index - - Plan of Treatment Health Maintenance Due Date Last Done Comments Cervical Cancer Screening 1978 Cologuard 1978 Colon Cancer Screening 1978 Colonoscopy 1978 FOBT / Fit Test 1978 HIV Screening 1978 HPV and Pap Smear 1978 Hepatitis C Screening 1978 Pap Smear 1978 Sigmoidoscopy 1978 Hepatitis B Vaccines (1 of 3 - 19+ 3-dose series) 1997 Depression Screening and Follow-Up 06/05/2023 COVID-19 Vaccine (1 - 2023-2 5 season) 2024 Influenza Vaccine (#1) 2024 2, 03/05/2020, 03/25/2019 Alcohol/Substance Use Screening 06/05/2024 DTaP,Tdap,and Td Vaccines (3 - Td or Tdap) 07/25/2029 07/25/2019, 10/08/2014 RSV Vaccine (60+ years old and patients) (1 - 1-dose 75+ series) 2053 Pneumococcal Vaccine: Pediatric (0-5 Years) and At-Risk Patients (6-50 Years) Aged Out 03/05/2020 No longer eligible based on patient's age to complete this topic Mammogram Discontinued 09/23/2022 Insurance [employer] Care Teams Yard Assistant Relationship Specialty Start Date End Date Patient, Has No Pcp Or Ref DO NOT EDIT THIS RECORD VIA PROVIDER ON THE FLY PCP - General Fisher Trap 03/27/24
--- OUTSIDE RECORDS SUMMARY | 2024-07-25 21:01 | XMS_ITS | Referral Summary ---
Author Organization [facility] Address [address] [place] [address] Care Team Providers Care General Science Teacher Name Role Phone Patient, Has No Pcp [...] Mass Index - - Plan of Treatment Not on file Insurance [employer] Care Teams General Science Teacher Relationship Specialty Start Date End Date Patient, Has No Pcp Or Ref DO NOT EDIT THIS RECORD VIA PROVIDER ON THE FLY PCP - General Scale Balancer 03/27/24
[2024-07-26 02:26] VITALS: BP 162/84; PULSE 91; RESP 18; TEMP 37.1; O2SAT 92
--- NOTE | 2024-07-26 02:28 | PC.NURSE ---
pt was discharged by the provider. dr Carrera
== END 2024-07-26 02:28 | disposition home or self-care (01) ==
PROVIDERS: Emergency Provider Internal Medicine; PCP Internal Medicine
DX: S09.90XA Unspecified injury of head, initial encounter (principal); R51.9 Headache, unspecified; M54.2 Cervicalgia; Y29.XXXA Contact with blunt object, undetermined intent, initial encounter; Y93.9 Activity, unspecified; Y92.9 Unspecified place or not applicable; Y99.0 Civilian activity done for income or pay
CPT/HCPCS: 70450; 72125; 99282; 99284

== ENCOUNTER → 2024-07-25 17:40 | Outpatient (BNV) | payer MEDICAID, SELFPAY | PROVIDERS: PCP Internal Medicine; Visit Provider Radiology Diagnostic Radiology | DX: M54.2 Cervicalgia (principal); S09.90XA Unspecified injury of head, initial encounter | CPT/HCPCS: 70450; 72125 ==

== ENCOUNTER 2024-08-18 08:22 | Inpatient (IN) | payer MEDICAID, SELFPAY ==
[2024-08-18] VITALS (12 sets, daily range): BP systolic 99–145; BP diastolic 57–97; PULSE 89–111; RESP 16–32; TEMP 36.3–36.9; O2SAT 86–100; BMI 28.5
--- NOTE | ~2024-08-18 | XR_ITS ---
CLINICAL HISTORY: cough 1 view chest x-ray Comparison: None Findings: The lungs are clear. Heart size is normal. No acute fracture. IMPRESSION: 1. No acute findings. This document has been electronically signed by: Dick Cruz MD on 08/18/2024 09:27:22
--- NOTE | 2024-08-18 08:28 | ED.SOB ---
HPI - SOB/Dyspnea General Chief Complaint: Dyspnea Stated Complaint: wheezing asthma Time Seen by Provider: 08/18/24 08:26 Source: patient Mode of arrival: EMS Limitations: no limitations History of Present Illness HPI Narrative: this is a 44 years old the patient with a history of asthma brought in by the EMS in respiratory distress she received the pre-hospital Solu-Medrol duo nebs. Patient stated that she got worse last night denies any fever or chills MD elicited complaint: shortness of breath and cough Pertinent past history: asthma Onset (ago): day(s) (1) Timing: constant Severity: severe Exacerbating factors: nothing Relieving factors: oxygen Known history of: asthma Associated symptoms: denies other symptoms Related Data Home Medications ?Medication ?Instructions ?Recorded ?Confirmed albuterol sulfate 90 mcg/actuation 2 puff inhalation Q4H PRN wheezing 08/18/24 08/18/24 aerosol inhaler (Ventolin HFA) melatonin 3 mg tablet 3 mg PO BEDTIME PRN Sleep 08/18/24 08/18/24 multivitamin with folic acid 400 1 tab PO DAILY 08/18/24 08/18/24 mcg tablet (Daily-Claudio (with folic acid)) Allergies Allergy/AdvReac Type Severity Reaction Status Date / Time No Known Allergies Allergy Verified 08/18/24 08:28 Review of Systems Respiratory: Respiratory: Reports as per HPI, Reports cough and Reports wheezing Neurologic: Reports system reviewed and no additional complaints, except as documented Allergic/Immunologic: Allergic/Immunologic: Reports wheezing PMFSH Past Medical History [facility] Narrative: history of asthma prior admission never intubated Medical History (Updated 08/18/24 @ 10:29 by Alex Looney MD) Cigarette smoker Asthma Social History Social History Patient Tobacco Use Status: Current someday Tobacco user Smoked in Last 30 Days: Yes Use of substances other than those prescribed or required for medical reasons: Yes Substance Use Type: Marijuana Substance Use Frequency: Occasionally Advance Directives: No Advance Directives Information Provided: No Do you have a plan to hurt others: No Plan Nutrition Risks: No Nutritional Risk Patient : No Physical Exam Vital Signs: Vital Signs: Last Vital Signs Temp 98.1 F 08/18/24 08:33 Pulse 105 H 08/18/24 09:50 Resp 17 08/18/24 09:50 BP 99/63 08/18/24 09:50 Pulse Ox 98 08/18/24 09:50 O2 Del Method Oxymask 08/18/24 09:50 O2 Flow Rate 4 08/18/24 09:50 BMI result Body Mass Index 28.5 [id number] distress Const: General: cooperative Nutritional Appearance: well nourished Orientation/consciousness: patient oriented x3 HEENT: Head: Yes normal to inspection General nose exam: Normal external nose present Face and sinus: Yes normal facial exam Mouth: Normal oral and palatal mucosa present Throat: Yes posterior oropharynx normal Neck: Neck: Yes normal visual inspection Resp: Effort & Inspection: uses accessory muscles Auscultation: wheezes Cardio: Jugular venous distension: no JVD Rate: regular rate Rhythm: regular rhythm GI: Inspection: Yes normal to inspection Auscultation: normal bowel sounds Skin: General skin exam: no rashes or lesions noted Neuro: General: patient oriented x3 Medications Administered Generic Name Dose Route Start Last Admin Trade Name Freq PRN Reason Stop Dose Admin Magnesium Sulfate 2 gm in 50 mls @ 25 mls/hr 08/18/24 08:47 08/18/24 08:51 Magnesium Sulfate/H2o IV 08/18/24 10:46 25 mls/hr ONCE ONE Administration Discontinued Medications Generic Name Dose Route Start Last Admin Trade Name Freq PRN Reason Stop Dose Admin Albuterol Sulfate 7.5 mg/ 0 mg 08/18/24 08:39 08/18/24 08:43 Albuterol/Ipratropium 3 ml INHALE 08/18/24 08:40 10 each ONCE ONE Administration Sodium Chloride 500 mls @ 999 mls/hr 08/18/24 08:45 08/18/24 09:44 Ns IV 08/18/24 09:15 Infused .Q31M JACLYN Infusion Medical Decision Making Medical Decision Making MDM Narrative: patient presented in respiratory distress history of asthma wheezing received already IV steroid and duo nebs we will continue on nebulizer do a chest x-ray Differential Diagnosis Differential Diagnoses: The differential diagnosis associated with the presentation includes exacerbation asthma/pneumonia/ influenza Admission/Observation Consideration of admission/observation: Escalation of care including admission/observation considered Consult Healthcare Provider Management of the patient was discussed with: Hospitalist Lab Data [facility] Lab Attestation statement: I reviewed the patient's lab results. 08/18/24 08:38 08/18/24 08:38 Labs: Lab Results 08/18/24 08/18/24 Range/Units 08:38 08:46 WBC 14.0 H (4.8-10.8) X10*3/uL RBC 4.58 (4.20-5.50) X10*6/uL Hgb 14.5 (12.0-16.0) g/dl Hct 41.6 (37.0-47.0) % MCV 90.8 (80.0-98.0) fL MCH 31.7 (27.0-33.0) pg MCHC 34.9 (31.0-35.0) g/dl RDW 13.2 (11.0-16.0) % Plt Count 280 (160-400) X10*3/uL MPV 9.4 (9.4-12.3) fL Immature Gran % (Auto) 0.3 (0.0-0.4) % Neut % (Auto) 68.3 (45-73) % Lymph % (Auto) 20.5 (20-40) % [place] % (Auto) 6.1 (2-11) % Eos % (Auto) 4.4 H (0-4) % Baso % (Auto) 0.4 (0-2) % Lymph # (Auto) 2.9 (1.2-4.9) X10*3/uL [place] # (Auto) 0.9 (0.1-1.2) X10*3/uL Eos # (Auto) 0.6 H (0.0-0.4) X10*3/uL Baso # (Auto) 0.1 (0.0-0.2) X10*3/uL Abs Immat Gran (auto) 0.04 H (0.00-0.03) X10*3/uL Absolute Neuts (auto) 9.6 H (2.0-8.3) x10*3/uL Absolute Nucleated RBC 0.000 (0.0-0.012) X10*3/uL Nucleated RBC % (auto) 0.0 (0.0-0.2) /100WBC VBG pH 7.43 (7.32-7.43) VBG pCO2 37 mmHg VBG pO2 75 mmHg VBG HCO3 25 (22-26) mmol/L VBG O2 Saturation 98.0 % VBG Base Excess 1.5 mmol/L Sodium 139 (135-145) mmol/L Potassium 4.0 (3.3-5.1) mmol/L Chloride 109 H (96-108) mmol/L Carbon Dioxide 23 (22-29) mmol/L Anion Gap 11 L (12-20) BUN 8 L (9-16) mg/dL Creatinine 0.64 (0.5-1.4) mg/dL Estim Creat Clear Calc 105.1 Estimated GFR > 60 Random Glucose 103 (60-115) mg/dL Calcium 8.7 D (8.4-10.2) mg/dL Total Bilirubin 0.2 (0.0-1.0) mg/dL AST 19 (5-31) U/L ALT 11 (0-31) U/L Alkaline Phosphatase 79 (39-117) U/L Total Protein 7.0 (6.5-8.0) g/dL Albumin 3.9 (3.5-5.0) g/dL Influenza Type A (PCR) NEGATIVE (Negative) Influenza Type B (PCR) NEGATIVE (Negative) RSV RNA Qual (PCR) NEGATIVE (Negative) SARS-CoV-2 RNA (RT-PCR) NEGATIVE (Negative) Independent Interpretation I performed an independent interpretation of an: Plain X-Ray Interpretation: NAD Radiology Impression Discussion of test interpretation with radiology: I have reviewed the radiologist's reading. Radiologist Impression: NAD Independent Historian Clinical information obtained from an independent historian. History obtained from or confirmed by: EMS Chronic Conditions Patient?s care impacted by: Other (Asthma) Critical Care Time Critical Care Time Critical Care Time: Yes Total Critical Care Time: 60 Attestation: multiple nebs back to back Discharge Plan Discharge Clinical Impression: Hypoxia Asthma exacerbation Qualifiers: Asthma severity: moderate Asthma persistence: persistent Qualified Code(s): J45.41 - Moderate persistent asthma with (acute) exacerbation Patient Disposition: Admitted As Inpatient
[2024-08-18] MEDS: Albuterol Sulfate 7.5 MG, Albuterol/Iprat 2.5/0.5MG 3 ML 3 ML INHALE (08:43)
[2024-08-18 08:45] LABS: MANUAL DIFF FLAG NO
[2024-08-18 08:46] LABS: Basophils Absolute Auto 0.1 X10*3/uL (0.0-0.2); Basophils Percent Auto 0.4 % (0-2); Eosinophils Absolute Auto 0.6 X10*3/uL (0.0-0.4); Eosinophils Percent Auto 4.4 % (0-4); Hematocrit 41.6 % (37.0-47.0); Hemoglobin 14.5 g/dl (12.0-16.0); Imm Gran Abs Auto 0.04 X10*3/uL (0.00-0.03); Imm Gran Pct Auto 0.3 % (0.0-0.4); Lymphocytes Absolute Auto 2.9 X10*3/uL (1.2-4.9); Lymphocytes Percent Auto 20.5 % (20-40); Mean Corpuscular HGB Conc 34.9 g/dl (31.0-35.0); Mean Corpuscular Hemoglobin 31.7 pg (27.0-33.0); Mean Corpuscular Volume 90.8 fL (80.0-98.0); Mean Platelet Volume 9.4 fL (9.4-12.3); Monocytes Absolute Auto 0.9 X10*3/uL (0.1-1.2); Monocytes Percent Auto 6.1 % (2-11); Neutrophils Absolute Auto 9.6 x10*3/uL (2.0-8.3); Neutrophils Percent Auto 68.3 % (45-73); Platelet Count 280 X10*3/uL (160-400); Red Blood Count 4.58 X10*6/uL (4.20-5.50); Red Cell Distribution Width 13.2 % (11.0-16.0)
[2024-08-18 08:49] LABS: Venous Blood Gas Refer to POC result
[2024-08-18 08:51] LABS: VBG Base Excess 1.5 mmol/L; VBG HCO3 25 mmol/L (22-26); VBG pCO2 37 mmHg; VBG pH 7.43 (7.32-7.43); VBG pO2 75 mmHg
[2024-08-18] MEDS: 0.9 % Sodium Chloride 500 ML 999 ML IV (08:51)
[2024-08-18] MEDS: Magnesium Sulfate/H2O 2 GM/50 ML PIGGYBACK IV (08:51)
[2024-08-18 09:00] LABS: Alanine Aminotransferase 11 U/L (0-31); Albumin Level 3.9 g/dL (3.5-5.0); Alkaline Phosphatase 79 U/L (39-117); Anion Gap 11 (12-20); Aspartate Amino Transferase 19 U/L (5-31); Bilirubin Total 0.2 mg/dL (0.0-1.0); Blood Urea Nitrogen 8 mg/dL (9-16); Calcium 8.7 mg/dL (8.4-10.2); Carbon Dioxide 23 mmol/L (22-29); Chloride 109 mmol/L (96-108); Creatinine Clr Calc Pharmacy 105.1; Estimated Glomerular Filt Rate > 60; Glucose Random 103 mg/dL (60-115); Sodium 139 mmol/L (135-145)
--- NOTE | 2024-08-18 09:13 | PC.NURSE ---
pt biba from home c/o increased sob/nonproductive x 1 day. pt reports hx asthma - not on home O2. pt reports using inhalers w/ minimal to no relief. pt denies chest pain/palpitations/fevers/chills. pt found at 76% on RA via FD - placed on 10L via nonrebreather. pt then placed on 6L via NC via EMS. upon ED arrival - pt a&ox4. vss and up to date. nsr on the radiographer cardiac catheterization. pt seemingly sob as she is unable to speak in full/clear sentences. wheezing noted throughout. pt positioned upright to promote patent airway. pt receiving breathing tx via EMS upon arrival. RT bedside. pt transitioned to receive breathing tx via RT upon ED arrival. pt noted to desat to 86% on RA s/p breathing tx. pt now currently on 4L via NC - SPO2 between 92%-94%. otherwise vss and up to date. sinus tachycardic s/p breathing tx - denies chest pain/palpitations. pt remains in upright position to promote patent airway. 20gIV in the right hand - labs obtained/sent to lab. IVF/medication administered per provider order. CXR pending. plan of care ongoing. call bruce placed within reach.
--- NOTE | 2024-08-18 09:28 | PC.NURSE ---
pt noted to desat to 88% on 4L via NC - attempted to place pt on 6L - SPO2 @ 90%. pt transitioned to oxymask at 4L via NC - SPO2 currently at 94%. pt remains in upright position. wob decreased at this time. vital signs otherwise stable aside from being slightly sinus tachycardic on the monitor. plan of care ongoing. call bruce placed within reach.
[2024-08-18 09:38] LABS: Influenza A PCR NEGATIVE (Negative); Influenza B PCR NEGATIVE (Negative); Resp Syncy Virus RNA Qual PCR NEGATIVE (Negative); SARS COV2 PCR INHOUSE NEGATIVE (Negative)
--- NOTE | 2024-08-18 09:42 | PM.IMHP ---
History of Present Illness Date of Service: 08/18/24 Attending physician on admission: Harrison Esparza Chief Complaint: sob/wheezing 44-year-old female with history of asthma not on home oxygen presents to the ED via EMS earlier today for evaluation of shortness of breath and wheezing. The patient reports that for the last 2 days, she has been experiencing nasal congestion and intermittently productive cough as well as headache that was significantly worse this morning with increased work of breathing and air hunger. She requested her daughter called EMS. On EMS arrival, she was satting 76% and was placed on 10 L O2 via OxyMask. She was given 125 mg IV methylprednisolone as well as to DuoNebs and has been weaned to 4 L via OxyMask on arrival. She was initially tachypneic with that has improved following treatment including 7.5 mg albuterol 2 g magnesium in the ED. She has been tachycardic likely related to albuterol. She has a leukocytosis of 14.5. Absolute esoinophils 600. Renal function and electrolyte levels normal except for chloride 109. Hepatic function within normal limits. VBGWithin normal limits. Indicative for COVID-19 RSV, influenza. CXR negative for any pneumonia. She will be admitted for further management of acute asthma exacerbation with acute hypoxemic respiratory failure. Reports at baseline uses albuterol inhaler every morning and sometimes later in the day as well. Not on any maintenance inhalers. Smokes 3 cigarettes per day, trying to quit. No drugs or alcohol. Review of Systems Review of Systems: Yes all other systems are reviewed and are negative [facility] Medical History (Updated 08/18/24 @ 10:11 by CHIO Myers) Cigarette smoker Asthma Social History Patient Tobacco Use Status: Current someday Tobacco user Substance Use Type: Marijuana Meds Allergies Allergy/AdvReac Type Severity Reaction Status Date / Time No Known Allergies Allergy Verified 08/18/24 08:28 Active Medications: Current Medications Magnesium Sulfate (Magnesium Sulfate/H2o) 2 gm in 50 mls @ 25 mls/hr IV ONCE ONE Stop: 08/18/24 10:46 Last Admin: 08/18/24 08:51 Dose: 25 mls/hr Physical Exam Vital Signs and Narrative: Vital Signs: Last Vital Signs Temp 98.1 F 08/18/24 08:33 Pulse 111 H 08/18/24 09:02 Resp 24 H 08/18/24 09:02 BP 134/77 08/18/24 09:02 Pulse Ox 94 08/18/24 09:02 O2 Del Method Nasal Cannula 08/18/24 09:02 O2 Flow Rate 4 08/18/24 09:02 BMI result Body Mass Index 28.5 Constitutional - Awake and Alert, No apparent distress Eyes - PERRLA, EOMI Cardiovascular - S1S2, RRR, No edema Respiratory - Normal lung expansion, Normal respiratory effort, No respiratory distress, diffuse bilateral wheezing with coarse lung sounds/rhonchi Gastrointestinal - NT / ND; +BS; No rebound or guarding Extremities - no calf tenderness bilaterally, no swelling Skin - Warm/Dry Neurological - Alert & oriented x3 Psychological - Appropriate affect Results Labs 08/18/24 08:38 08/18/24 08:38 Labs: Laboratory Results - last 24 hr 08/18/24 08/18/24 08:38 08:46 MCV 90.8 MCH 31.7 MCHC 34.9 RDW 13.2 Plt Count 280 MPV 9.4 Immature Gran % (Auto) 0.3 Neut % (Auto) 68.3 Lymph % (Auto) 20.5 [place] % (Auto) 6.1 Eos % (Auto) 4.4 H Baso % (Auto) 0.4 Lymph # (Auto) 2.9 [place] # (Auto) 0.9 Eos # (Auto) 0.6 H Baso # (Auto) 0.1 Abs Immat Gran (auto) 0.04 H Absolute Neuts (auto) 9.6 H Absolute Nucleated RBC 0.000 Nucleated RBC % (auto) 0.0 VBG pH 7.43 VBG pCO2 37 VBG pO2 75 VBG HCO3 25 VBG O2 Saturation 98.0 VBG Base Excess 1.5 Anion Gap 11 L Estim Creat Clear Calc 105.1 Estimated GFR > 60 Random Glucose 103 Calcium 8.7 D Total Bilirubin 0.2 AST 19 ALT 11 Alkaline Phosphatase 79 Total Protein 7.0 Albumin 3.9 Influenza Type A (PCR) NEGATIVE Influenza Type B (PCR) NEGATIVE RSV RNA Qual (PCR) NEGATIVE SARS-CoV-2 RNA (RT-PCR) NEGATIVE Assessment and Plan (1) Acute hypoxemic respiratory failure: Status: Acute (2) Asthma exacerbation: Status: Acute Plan 44-year-old female with history of asthma not on home oxygen admitted for further management of acute asthma exacerbation with acute hypoxemic respiratory failure # acute unspecified asthma exacerbation with acute hypoxemic respiratory failure -negative for COVID-19, RSV, flu. Check full viral respiratory panel -CXR negative for pneumonia -IV methylprednisolone 40 mg b.i.d. -DuoNebs q.4h while awake and p.r.n. -loratadine and Flonase -guaifenesin -absolute eosinophils 600. Consider allergic etiology versus viral -recommend maintenance inhaler and pulmonary referral for PFT on discharge -continue supplemental O2, wean as tolerated -smoking cessation advised #Acute respiratory distress -r/t above -stable on admission #SIRS criteria -tachycardia due to albuterol -tachypnea as above -Leukocytosis due to steroid use -no sepsis/severe sepsis #Cigarette smoking -cessation advised. Declines NRT DVT prophylaxis- lovenox full code Patient requires inpatient stay of at least 2 midnights due to acute hypoxemic respiratory failure requiring supplemental O2 up to 10 L requiring IV steroids and nebulizers with very close monitoring of respiratory status and vital signs Quality Stroke Does the patient have a stroke diagnosis?: No VTE Prior VTE?: No VTE Risk Level:: Medical - moderate - high VTE Device Contraindication: Treatment Not Indicated VTE Drug Contraindication: N/A - Med Ordered
--- NOTE | 2024-08-18 10:28 | PHA.MEDREC ---
Pharmacy Consult ? Medication Reconciliation Pharmacy has completed the medication reconciliation.Spoke with patient in ED
[2024-08-18] MEDS: Loratadine 10 MG TABLET PO (11:38)
[2024-08-18] MEDS: Enoxaparin Sodium 40 MG/0.4 ML SYRINGE SUBCUT (11:38)
[2024-08-18] MEDS: Albuterol/Iprat 2.5/0.5MG 3 ML AMPUL.NEB INHALE ×3 (12:18→19:36)
[2024-08-18 12:46] LABS: Adenovirus PCR Not Detected (Not Detect.); Bordetella parapertussis PCR Not Detected (Not Detect.); Bordetella pertussis PCR Not Detected (Not Detect.); Chlamydia pneumoniae PCR Not Detected (Not Detect.); Coronavirus 229E PCR Not Detected (Not Detect.); Coronavirus HKU1 PCR Not Detected (Not Detect.); Coronavirus NL63 PCR Not Detected (Not Detect.); Coronavirus OC43 PCR Not Detected (Not Detect.); Human metapneumovirus PCR Not Detected (Not Detect.); Influenza A PCR Not Detected (Not Detect.); Influenza B PCR Not Detected (Not Detect.); Mycoplasma pneumoniae PCR Not Detected (Not Detect.); Parainfluenza 1 PCR Not Detected (Not Detect.); Parainfluenza 2 PCR Not Detected (Not Detect.); Parainfluenza 3 PCR Not Detected (Not Detect.); Parainfluenza 4 PCR Not Detected (Not Detect.); RSV PCR Not Detected (Not Detect.); Rhino/Enterovirus PCR Not Detected (Not Detect.)
[2024-08-18 13:03] LABS: SARS-CoV-2 PCR Not Detected (Not Detect.)
[2024-08-18] MEDS: 0.9 % Sodium Chloride Flush 3 ML SYRINGE IVFLUSH (15:35)
[2024-08-18] MEDS: Fluticasone Propionate Nasal 16 GM SPRAY 1 SPRAY NOSTRIL-B ×2 (15:35→19:25)
[2024-08-18] MEDS: guaiFENesin 200 MG/10 ML 10 ML LIQUID PO (18:17)
[2024-08-18] MEDS: methylPREDNISolone Sod Succ 40 MG/ML VIAL IVPUSH (18:17)
[2024-08-19] MEDS: guaiFENesin 200 MG/10 ML 10 ML LIQUID PO ×2 (01:59→08:44)
[2024-08-19 03:06] VITALS: BP 136/64; PULSE 98; RESP 20; TEMP 36.3; O2SAT 93
[2024-08-19 06:38] LABS: Basophils Percent Auto 0.1 % (0-2); Hematocrit 39.4 % (37.0-47.0); Hemoglobin 13.2 g/dl (12.0-16.0); Imm Gran Abs Auto 0.17 X10*3/uL (0.00-0.03); Imm Gran Pct Auto 0.7 % (0.0-0.4); Lymphocytes Absolute Auto 1.4 X10*3/uL (1.2-4.9); Lymphocytes Percent Auto 6.1 % (20-40); MANUAL DIFF FLAG SCAN; Mean Corpuscular HGB Conc 33.5 g/dl (31.0-35.0); Mean Corpuscular Hemoglobin 31.5 pg (27.0-33.0); Mean Platelet Volume 11.3 fL (9.4-12.3); Monocytes Absolute Auto 0.8 X10*3/uL (0.1-1.2); Monocytes Percent Auto 3.5 % (2-11); Neutrophils Absolute Auto 20.6 x10*3/uL (2.0-8.3); Neutrophils Percent Auto 89.6 % (45-73); Platelet Count 220 X10*3/uL (160-400); Red Blood Count 4.19 X10*6/uL (4.20-5.50); Red Cell Distribution Width 13.3 % (11.0-16.0); SCAN SMEAR FLAG 1
[2024-08-19] MEDS: methylPREDNISolone Sod Succ 40 MG/ML VIAL IVPUSH (06:44)
[2024-08-19 07:03] LABS: SLIDE REVIEW VERIFIED
[2024-08-19 07:12] LABS: Blood Urea Nitrogen 10 mg/dL (9-16); Calcium 9.2 mg/dL (8.4-10.2); Estimated Glomerular Filt Rate > 60; Glucose Random 114 mg/dL (60-115)
[2024-08-19 07:21] LABS: Anion Gap 14 (12-20); Carbon Dioxide 25 mmol/L (22-29); Chloride 105 mmol/L (96-108); Potassium 4.9 mmol/L (3.3-5.1); Sodium 139 mmol/L (135-145)
[2024-08-19 07:43] VITALS: BP 101/58; PULSE 73; RESP 16; TEMP 37.2; O2SAT 90
[2024-08-19] MEDS: Albuterol/Iprat 2.5/0.5MG 3 ML AMPUL.NEB INHALE (08:25)
[2024-08-19 08:27] VITALS: PULSE 89; RESP 16; O2SAT 94
[2024-08-19] MEDS: Enoxaparin Sodium 40 MG/0.4 ML SYRINGE SUBCUT (08:44)
[2024-08-19] MEDS: Multivitamin TABLET 1 TAB PO (08:44)
[2024-08-19] MEDS: Fluticasone Propionate Nasal 16 GM SPRAY 1 SPRAY NOSTRIL-B (08:44)
[2024-08-19] MEDS: Loratadine 10 MG TABLET PO (08:44)
[2024-08-19] MEDS: 0.9 % Sodium Chloride Flush 3 ML SYRINGE IVFLUSH (08:46)
--- NOTE | 2024-08-19 10:50 | P.PNIM_ITS ---
Subjective Subjective Date of Service: 08/19/24 Interval History: feeling better, still having wheezing, SaO2 90% at rest dropped to 84% with ambulation Review of Systems Review of Systems: Yes all other systems are reviewed and are negative Physical Exam 2 Vital Signs: Vital Signs: Last Vital Signs Temp 98.9 F 08/19/24 07:43 Pulse 89 08/19/24 08:27 Resp 16 08/19/24 08:27 BP 101/58 L 08/19/24 07:43 Pulse Ox 90 L 08/19/24 07:43 O2 Del Method Room Air 08/19/24 07:43 O2 Flow Rate 2 08/19/24 03:06 BMI result Body Mass Index 28.5 Gen: in no acute distress HEENT: sclera anicteric, moist mucus membranes Neck: supple Lungs: scattered end-expiratory wheezing Heart: regular rate and rhythm, no murmurs Abd: soft, non-tender, non-distended Ext: no edema Skin: warm/well-perfused Neuro: alert and oriented x3, no focal findings Psych: appropriate affect Objective Data Active Medications Acetaminophen (Acetaminophen 325 Mg Tablet) 650 mg PO Q6H PRN PRN Reason: Pain, Mild 1-3,fever,headache Albuterol/Ipratropium (Albuterol/Iprat 2.5/0.5mg 3 Ml Ampul.Neb) 3 ml INHALE RQ4H WHILE AWAKE PRN PRN Reason: Shortness of Breath/Wheezing Last Admin: 08/18/24 12:18 Dose: 3 ml Documented By: ANDREW Albuterol/Ipratropium (Albuterol/Iprat 2.5/0.5mg 3 Ml Ampul.Neb) 3 ml INHALE RQ4H WHILE AWAKE [facility] Last Admin: 08/19/24 08:25 Dose: 3 ml Documented By: QUINN Calcium Carbonate (Calcium Carbonate 750 Mg Tab.Chew) 750 mg PO Q4H PRN PRN Reason: Heartburn Enoxaparin Sodium (Enoxaparin Sodium 40 Mg/0.4 Ml Syringe) 40 mg SUBCUT Q24H [facility] Last Admin: 08/19/24 08:44 Dose: 40 mg Documented By: GUALBERTO Fluticasone Propionate (Fluticasone Propionate Nasal 16 Gm [place]) 1 spray NOSTRIL-B BID [facility] Last Admin: 08/19/24 08:44 Dose: 1 spray Documented By: GUALBERTO Guaifenesin (Guaifenesin 200 Mg/10 Ml 10 Ml Liquid) 10 ml PO Q6H PRN PRN Reason: Cough Last Admin: 08/19/24 08:44 Dose: 10 ml Documented By: GUALBERTO Loratadine (Loratadine 10 Mg Tablet) 10 mg PO DAILY [facility] Last Admin: 08/19/24 08:44 Dose: 10 mg Documented By: GUALBERTO Magnesium Hydroxide (Milk Of Magnesia 30 Ml Oral.Susp) 30 ml PO DAILY PRN PRN Reason: Constipation Melatonin (Melatonin 3 Mg Tablet) 6 mg PO BEDTIME PRN PRN Reason: Insomnia Methylprednisolone Sodium Succinate (Methylprednisolone Sod Succ 40 Mg/Ml Vial) 40 mg IVPUSH Q12H [facility] Last Admin: 08/19/24 06:44 Dose: 40 mg Documented By: TAURUS Multivitamins/Vitamin C (Multivitamin Tablet) 1 tab PO DAILY [facility] Last Admin: 08/19/24 08:44 Dose: 1 tab Documented By: GUALBERTO Sodium Chloride (0.9 % Sodium Chloride Flush 3 Ml Syringe) 3 ml IVFLUSH QSHIFT [facility] Last Admin: 08/19/24 08:46 Dose: 3 ml Documented By: GUALBERTO Labs 08/19/24 05:47 08/19/24 05:47 Labs: Laboratory Results - last 24 hr 08/18/24 08/19/24 10:14 05:47 MCV 94.0 MCH 31.5 MCHC 33.5 RDW 13.3 Plt Count 220 MPV 11.3 Immature Gran % (Auto) 0.7 H Neut % (Auto) 89.6 H Lymph % (Auto) 6.1 L [place] % (Auto) 3.5 Eos % (Auto) 0.0 Baso % (Auto) 0.1 Lymph # (Auto) 1.4 [place] # (Auto) 0.8 Eos # (Auto) 0.0 Baso # (Auto) 0.0 Abs Immat Gran (auto) 0.17 H Absolute Neuts (auto) 20.6 H Absolute Nucleated RBC 0.000 Nucleated RBC % (auto) 0.0 Smear Tech's Comments VERIFIED Anion Gap 14 Estim Creat Clear Calc 116.0 Estimated GFR > 60 Random Glucose 114 Calcium 9.2 Respiratory Panel [place] See Note Adenovirus (Rapid PCR) Not Detected B.pert (TEM-PCR) Not Detected B.parapertussis DNA PCR Not Detected C. pneumoniae DNA (PCR) Not Detected Coronavirus OC43 (PCR) Not Detected Coronavirus HKU1 (PCR) Not Detected Coronavirus 229E (PCR) Not Detected Coronavirus NL63 (PCR) Not Detected Human Metapneumovir PCR Not Detected Influenza A (RT-PCR) Not Detected Influenza B (RT-PCR) Not Detected M. pneumoniae (PCR) Not Detected Parainfluenza 1 (PCR) Not Detected Parainfluenza 2 (PCR) Not Detected Parainfluenza 3 (PCR) Not Detected Parainfluenza 4 (PCR) Not Detected RSV (PCR) Not Detected Entero/Rhino (PCR) Not Detected SARS-CoV-2 RNA (RT-PCR) Not Detected Assessment and Plan (1) Asthma exacerbation: Status: Acute (2) Acute hypoxemic respiratory failure: Status: Acute Plan d2 for 44yo F with asthma admitted with hypoxia due to asthma exacerbation acute hypoxic respiratory failure due to acute asthma exacerbation - viral testing negative, CXR for pnuemonia - continue methylprednisolone, standing/prn nebs - supplemental O2, wean as tolerated SIRS, not sepsis - tachycardia due to albuterol - tachypnea due to asthma - leukocytosis due to steroids tobacco abuse - NRT VTE ppx - enoxaparin dispo - possibly home tomorrow In my clinical judgment, the patient requires continued inpatient hospitalization for the following reasons: hypoxia Total time managing care of this patient today: 35 minutes. Quality Stroke Does the patient have a stroke diagnosis?: No VTE Prior VTE?: No VTE Risk Level:: Medical - moderate - high VTE Device Contraindication: Treatment Not Indicated VTE Drug Contraindication: N/A - Med Ordered
--- NOTE | 2024-08-19 12:04 | P.DS_ITS ---
DS: Providers Provider Date of Service: 08/19/24 Date of admission: 08/18/24 10:00 Date of discharge: 08/19/24 Primary care physician: Demetrio Gallegos MD DS: Diagnosis Discharge Diagnosis (1) Asthma exacerbation: Status: Acute (2) Acute hypoxemic respiratory failure: Status: Acute DS: Summary Hospital Course Hospital Course: From the history and physical by the admitting hospitalist, CHIO Myers, 08/18/24: 44-year-old female with history of asthma not on home oxygen presents to the ED via EMS earlier today for evaluation of shortness of breath and wheezing. The patient reports that for the last 2 days, she has been experiencing nasal congestion and intermittently productive cough as well as headache that was significantly worse this morning with increased work of breathing and air hunger. She requested her daughter called EMS. On EMS arrival, she was satting 76% and was placed on 10 L O2 via OxyMask. She was given 125 mg IV methylprednisolone as well as to DuoNebs and has been weaned to 4 L via OxyMask on arrival. She was initially tachypneic with that has improved following treatment including 7.5 mg albuterol 2 g magnesium in the ED. She has been tachycardic likely related to albuterol. She has a leukocytosis of 14.5. Absolute esoinophils 600. Renal function and electrolyte levels normal except for chloride 109. Hepatic function within normal limits. VBGWithin normal limits. Indicative for COVID-19 RSV, influenza. CXR negative for any pneumonia. She will be admitted for further management of acute asthma exacerbation with acute hypoxemic respiratory failure. Reports at baseline uses albuterol inhaler every morning and sometimes later in the day as well. Not on any maintenance inhalers. Smokes 3 cigarettes per day, trying to quit. No drugs or alcohol. 44yo F with asthma admitted with hypoxia due to asthma exacerbation. Viral testing negative; CXR negative for pneumonia. Hypoxia resolved with methylprednisolone and nebulizaer treatments. SIRS physiology due to albuterol, asthma, and steroids; not sepsis. Eosinophilia suggests allergic asthma and indeed, symptoms started after cleaning a maria l basement. She was discharged on prednisone and loratadine and also counseled to quit smoking. Time Attestation Discharge Coordination Time (in mins): 35 Quality: Safe Use of Opioids Does Pt have an Active Cancer Diagnosis on the Problem List?: No Quality: Stroke Does the patient have a stroke diagnosis?: No Physical Exam Vital Signs: Vital Signs: Last Vital Signs Temp 98.9 F 08/19/24 07:43 Pulse 89 08/19/24 08:27 Resp 16 08/19/24 08:27 BP 101/58 L 08/19/24 07:43 Pulse Ox 90 L 08/19/24 07:43 O2 Del Method Room Air 08/19/24 07:43 O2 Flow Rate 2 08/19/24 03:06 BMI result Body Mass Index 28.5 Gen: in no acute distress HEENT: sclera anicteric, moist mucus membranes Neck: supple Lungs: scattered soft end-expiratory wheezes Heart: regular rate and rhythm, no murmurs Abd: soft, non-tender, non-distended Ext: no edema Skin: warm/well-perfused Neuro: alert and oriented x3, no focal findings Psych: appropriate affect DS: Data Data Completed and Pending Completed studies during hospitalization [Text1]: Laboratory Results WBC 23.0 X10*3/uL (4.8-10.8) H 08/19/24 05:47 RBC 4.19 X10*6/uL (4.20-5.50) L 08/19/24 05:47 Hgb 13.2 g/dl (12.0-16.0) 08/19/24 05:47 Hct 39.4 % (37.0-47.0) 08/19/24 05:47 MCV 94.0 fL (80.0-98.0) 08/19/24 05:47 MCH 31.5 pg (27.0-33.0) 08/19/24 05:47 MCHC 33.5 g/dl (31.0-35.0) 08/19/24 05:47 RDW 13.3 % (11.0-16.0) 08/19/24 05:47 Plt Count 220 X10*3/uL (160-400) 08/19/24 05:47 MPV 11.3 fL (9.4-12.3) 08/19/24 05:47 Immature Gran % (Auto) 0.7 % (0.0-0.4) H 08/19/24 05:47 Neut % (Auto) 89.6 % (45-73) H 08/19/24 05:47 Lymph % (Auto) 6.1 % (20-40) L 08/19/24 05:47 [place] % (Auto) 3.5 % (2-11) 08/19/24 05:47 Eos % (Auto) 0.0 % (0-4) 08/19/24 05:47 Baso % (Auto) 0.1 % (0-2) 08/19/24 05:47 Lymph # (Auto) 1.4 X10*3/uL (1.2-4.9) 08/19/24 05:47 [place] # (Auto) 0.8 X10*3/uL (0.1-1.2) 08/19/24 05:47 Eos # (Auto) 0.0 X10*3/uL (0.0-0.4) 08/19/24 05:47 Baso # (Auto) 0.0 X10*3/uL (0.0-0.2) 08/19/24 05:47 Abs Immat Gran (auto) 0.17 X10*3/uL (0.00-0.03) H 08/19/24 05:47 Absolute Neuts (auto) 20.6 x10*3/uL (2.0-8.3) H 08/19/24 05:47 Absolute Nucleated RBC 0.000 X10*3/uL (0.0-0.012) 08/19/24 05:47 Nucleated RBC % (auto) 0.0 /100WBC (0.0-0.2) 08/19/24 05:47 Smear Tech's Comments VERIFIED 08/19/24 05:47 VBG pH 7.43 (7.32-7.43) 08/18/24 08:46 VBG pCO2 37 mmHg 08/18/24 08:46 VBG pO2 75 mmHg 08/18/24 08:46 VBG HCO3 25 mmol/L (22-26) 08/18/24 08:46 VBG O2 Saturation 98.0 % 08/18/24 08:46 VBG Base Excess 1.5 mmol/L 08/18/24 08:46 Sodium 139 mmol/L (135-145) 08/19/24 05:47 Potassium 4.9 mmol/L (3.3-5.1) D 03/17/25 05:47 Chloride 105 mmol/L (96-108) 08/19/24 05:47 Carbon Dioxide 25 mmol/L (22-29) 08/19/24 05:47 Anion Gap 14 (12-20) 08/19/24 05:47 BUN 10 mg/dL (9-16) 08/19/24 05:47 Creatinine 0.58 mg/dL (0.5-1.4) 08/19/24 05:47 Estim Creat Clear Calc 116.0 08/19/24 05:47 Estimated GFR > 60 08/19/24 05:47 Random Glucose 114 mg/dL (60-115) 08/19/24 05:47 Calcium 9.2 mg/dL (8.4-10.2) 08/19/24 05:47 Total Bilirubin 0.2 mg/dL (0.0-1.0) 08/18/24 08:38 AST 19 U/L (5-31) 08/18/24 08:38 ALT 11 U/L (0-31) 08/18/24 08:38 Alkaline Phosphatase 79 U/L (39-117) 08/18/24 08:38 Total Protein 7.0 g/dL (6.5-8.0) 08/18/24 08:38 Albumin 3.9 g/dL (3.5-5.0) 08/18/24 08:38 Respiratory Panel [place] See Note 08/18/24 10:14 Adenovirus (Rapid PCR) Not Detected (Not Detect.) 08/18/24 10:14 B.pert (TEM-PCR) Not Detected (Not Detect.) 08/18/24 10:14 B.parapertussis DNA PCR Not Detected (Not Detect.) 08/18/24 10:14 C. pneumoniae DNA (PCR) Not Detected (Not Detect.) 08/18/24 10:14 Coronavirus OC43 (PCR) Not Detected (Not Detect.) 08/18/24 10:14 Coronavirus HKU1 (PCR) Not Detected (Not Detect.) 08/18/24 10:14 Coronavirus 229E (PCR) Not Detected (Not Detect.) 08/18/24 10:14 Coronavirus NL63 (PCR) Not Detected (Not Detect.) 08/18/24 10:14 Human Metapneumovir PCR Not Detected (Not Detect.) 08/18/24 10:14 Influenza A (RT-PCR) Not Detected (Not Detect.) 08/18/24 10:14 Influenza Type A (PCR) NEGATIVE (Negative) 08/18/24 08:38 Influenza B (RT-PCR) Not Detected (Not Detect.) 08/18/24 10:14 Influenza Type B (PCR) NEGATIVE (Negative) 08/18/24 08:38 M. pneumoniae (PCR) Not Detected (Not Detect.) 08/18/24 10:14 Parainfluenza 1 (PCR) Not Detected (Not Detect.) 08/18/24 10:14 Parainfluenza 2 (PCR) Not Detected (Not Detect.) 08/18/24 10:14 Parainfluenza 3 (PCR) Not Detected (Not Detect.) 08/18/24 10:14 Parainfluenza 4 (PCR) Not Detected (Not Detect.) 08/18/24 10:14 RSV (PCR) Not Detected (Not Detect.) 08/18/24 10:14 RSV RNA Qual (PCR) NEGATIVE (Negative) 08/18/24 08:38 Entero/Rhino (PCR) Not Detected (Not Detect.) 08/18/24 10:14 SARS-CoV-2 RNA (RT-PCR) Not Detected (Not Detect.) 08/18/24 10:14 Discharge Plan Discharge Anticipated Discharge Date/Time: 08/19/24 11:59 Patient Disposition: Home, Self-Care Discharge Diagnosis: hypoxia due to pneumonia Referrals: Demetrio Gonzales MD [Primary Care Provider] - 1 Week Discharge Medications: New loratadine 10 mg Tablet 10 mg PO DAILY Qty: 30 0RF prednisone 20 mg tablet 40 mg PO DAILY Qty: 8 0RF nicotine (polacrilex) 2 mg gum 2 mg buccal Q2H Qty: 100 0RF Continued melatonin 3 mg tablet 3 mg PO BEDTIME PRN (Reason: Sleep) albuterol sulfate [Ventolin HFA] 90 mcg/actuation HFA aerosol inhaler 2 puff INHALATION Q4H PRN (Reason: wheezing) multivitamin with folic acid [Daily-Claudio (with folic acid)] 400 mcg tablet 1 tab PO DAILY Discharge Orders: Discharge Order (Routine); Ordered 03/17/25 Ordered By: Yue Joel Diet: Advance to usual diet Activity on Discharge: As tolerated Stand Alone Forms: Patient Portal Discharge page Print Language: Cameroonian Care Plan Goals: recovery from asthma Health Concerns: hypoxia due to asthma Plan of Treatment: prednisone 40 mg daily x 4 days loratadine 10 mg daily albuterol as needed stop smoking; use nicotine gum to quit Please follow up with your primary care doctor within 1 week. Return to the hospital if you experience recurrent or worsening symptoms. Assessment: See Discharge Summary.
--- NOTE | 2024-08-19 13:23 | MHC.CM.PN ---
Patient discharged to home self care, prior to be seen by Case Management. DX Asthma exacerbation hypoxia. Patient arranged for transport home.
--- NOTE | 2024-08-21 13:17 | P.CDIM_ITS ---
PROVIDER RESPONSE TEXT: To clarify, the appropriate diagnosis supported by the clinical indicators: Mild intermittent QUERY TEXT: PHYSICIAN'S DOCUMENTATION REQUEST Date of Query: 08/19/2024 11:04 AM EDT Patient Name: Anne Galloway Admit Date: 08/18/2024 Dear Yue Joel MD, A review of the medical record indicates additional documentation may be needed. Please review below and update the documentation accordingly. Clinical indicators: Progress note 08/19 - Acute hypoxic respiratory failure due to acute asthma exacerbation. Continue methylprednisolone, standing/prn nebs. Supplemental O2. Based on the above, please clarify in the Progress Notes further specificity regarding the type of as thma, if known: Mild intermittent Mild persistent Moderate persistent Severe persistent Exercise induced Other (explain) Clinically unable to determine (explain) Thank you, Katy Qiu, CCS, CDIS Use of terms such as suspected, likely, concern for, or probable (associated with a specific diagnosi s that is being evaluated, monitored, or treated as if it exists) are acceptable and can be coded in the inpatient se tting, when documented at the time of discharge. Please use your independent medical judgment in providing your response. THIS QUERY IS PART OF THE PERMANENT MEDICAL RECORD
== END 2024-08-19 12:54 | disposition home or self-care (01) | DRG 141 ==
LOC: HO.ED 09:20 → HO.EDOVER 10:15 → HO.S3 10:21
PROVIDERS: Admitting Provider Physician Assistant; Emergency Provider Emergency Medicine; PCP Internal Medicine; Visit Provider Family Medicine
DX: J45.21 Mild intermittent asthma with (acute) exacerbation (principal); J96.01 Acute respiratory failure with hypoxia; R65.10 Systemic inflammatory response syndrome (SIRS) of non-infectious origin without acute organ dysfunction; F17.210 Nicotine dependence, cigarettes, uncomplicated; Z71.6 Tobacco abuse counseling; Z20.822 Contact with and (suspected) exposure to COVID-19; Z79.899 Other long term (current) drug therapy
CPT/HCPCS: 0241U; 36415; 71045; 80048; 80053; 82803; 85025; 87633; 94640; 99285; J1650; J2919; J3475

== ENCOUNTER → 2024-08-18 08:27 | Outpatient (BNV) | payer MEDICAID, SELFPAY | PROVIDERS: Emergency Provider Emergency Medicine; PCP Internal Medicine; Visit Provider Radiology Diagnostic Radiology | DX: R05.9 Cough, unspecified (principal) | CPT/HCPCS: 71045 ==

== ENCOUNTER → 2024-08-18 10:00 | Outpatient (BNV) | payer MEDICAID, SELFPAY | PROVIDERS: Admitting Provider Physician Assistant; Emergency Provider Emergency Medicine; PCP Internal Medicine; Visit Provider Physician Assistant | DX: J96.01 Acute respiratory failure with hypoxia (principal); J45.901 Unspecified asthma with (acute) exacerbation | CPT/HCPCS: 99223; 99239 ==

== ENCOUNTER 2024-09-20 20:13 | Inpatient (IN) | payer MEDICAID, SELFPAY ==
--- NOTE | ~2024-09-20 | CT_ITS ---
CLINICAL HISTORY: ?pna CT chest without contrast Comparison: None Findings: The heart is normal size. Mild mediastinal and hilar adenopathy, likely reactive. Diffuse bilateral tree-in-bud nodular consolidations. No significant pleural effusion or pneumothorax. Scattered more isolated pulmonary nodules for example in the right middle lobe measuring up to 5 mm. Per Fleischner criteria: Low-risk patients: No routine follow-up required. High-risk patients: Optional CT at 12 months Atelectasis. Hepatomegaly with steatosis and calcified granuloma in the liver. Colonic diverticulosis. Osteopenia with diffuse multilevel spondylosis. Postcholecystectomy. IMPRESSION: 1. Diffuse bilateral tree-in-bud nodular consolidations. Endobronchial pneumonia or aspiration suspected. 2. Mild mediastinal and hilar adenopathy, likely reactive. This document has been electronically signed by: Zuhair Becerra MD on 09/21/2024 02:26:11
--- NOTE | ~2024-09-20 | XR_ITS ---
CLINICAL HISTORY: Productive cough, fever, hypoxic 1 view chest x-ray Comparison: CR - XR CHEST 1V - 08/18/24 08:32 EDT Findings: Mildly diffuse interstitial opacities with bronchial wall thickening. No significant pleural effusion or pneumothorax. Heart size is normal. No acute fracture. IMPRESSION: Possible small airways disease. This document has been electronically signed by: Zuhair Becerra MD on 09/20/2024 20:59:39
[2024-09-20 20:18] VITALS: BP 125/82; PULSE 119; RESP 22; TEMP 37.3; O2SAT 82; BMI 26.3
[2024-09-20 20:19] VITALS: O2SAT 90
--- NOTE | 2024-09-20 20:23 | ED_ITS ---
HPI - SOB/Dyspnea General Chief Complaint: Dyspnea Stated Complaint: SOB, Fever, Cough w/ heavy mucus Time Seen by Provider: 09/20/24 21:00 Source: patient Mode of arrival: ambulatory Limitations: no limitations History of Present Illness ED Provider: Dr. Monica Pitts HPI Narrative: Patient comes to the emergency room complaining of 2 days of shortness of breath. According to the patient, patient has been coughing productive sputum. Patient states she only has an inhaler at home but has had no relief. Patient was hospitalized a month ago for asthma exacerbation. Patient denies any chest pain. Denies abdominal pain. Reports subjective fever. W patient drove herself to the hospital. When the patient arrived to triage, oxygen saturation was 82% on room air Related Data Home Medications ?Medication ?Instructions ?Recorded ?Confirmed albuterol sulfate 90 mcg/actuation 2 puff inhalation Q4H PRN wheezing 08/18/24 08/18/24 aerosol inhaler (Ventolin HFA) melatonin 3 mg tablet 3 mg PO BEDTIME PRN Sleep 08/18/24 08/18/24 multivitamin with folic acid 400 1 tab PO DAILY 08/18/24 08/18/24 mcg tablet (Daily-Claudio (with folic acid)) Previous Rx's ?Medication ?Instructions ?Recorded loratadine 10 mg tablet 10 mg PO DAILY #30 tabs 08/19/24 nicotine (polacrilex) 2 mg gum 2 mg buccal Q2H #100 ea 08/19/24 prednisone 20 mg tablet 40 mg (2 x 20 mg) PO DAILY #8 tabs 08/19/24 Allergies Allergy/AdvReac Type Severity Reaction Status Date / Time No Known Allergies Allergy Verified 09/20/24 20:25 Review of Systems 2 Review of Systems: Constitutional : No Weight loss, No Fever, No Chills, No Night Sweats, No Fatigue, No Malaise ENT/Mouth : No Hearing loss, No Ear Pain, No Nasal Congestion, No Sinus Pain, No Hoarseness, No sore throat, No Rhinorrhea, No Swallowing Difficulty Eyes: No Eye Pain, No Swelling, No Redness, No Foreign Body, No Discharge, No Vision Changes Cardiovascular : No Chest Pain, No SOB, No Dyspnea on Exertion, No Orthopnea, No Edema, No Palpitations Respiratory : Complaining of cough with sputum, wheezing, shortness of breath Gastrointestinal : No Nausea, No Vomiting, No Diarrhea, No Constipation, No abdominal Pain, No Hematochezia, No Melena Genitourinary : no irregular bleeding, No Dysuria, No Urinary Frequency, No Hematuria, No Urinary Incontinence, No Urgency, No Flank Pain, No Urinary Flow Changes, No Hesitancy Musculoskeletal : No joint pain, No Myalgias, No Joint Swelling Skin : No Skin Lesions, No rash Neuro : No Weakness, No Numbness, No Paresthesias, No Loss of Consciousness, No Dizziness, No Headache Psych : No Anxiety/Panic, No Depression, No SI/HI/AH/VH, No Social Issues, Heme/Lymph: No Bruising, No Bleeding,No Lymphadenopathy Endocrine : No Polyuria, No Polydipsia, No Temperature Intolerance PMFSH Past Medical History Medical History Cigarette smoker Asthma Social History Social History Household Members: Children Housing: Apartment Do you presently have visiting nurse or other home services: No Patient Tobacco Use Status: Current everyday Tobacco user Tobacco use type: Cigarette Cigarettes Per Day: 3 Substance Use Type: Marijuana Advance Directives: No Advance Directives Information Provided: No Physical Exam 2 Vital Signs: Vital Signs: Last Vital Signs Temp 98.3 F 09/20/24 22:10 Pulse 103 H 09/20/24 22:10 Resp 27 H 09/20/24 22:10 BP 119/67 09/20/24 22:10 Pulse Ox 94 09/20/24 22:10 O2 Del Method Oxymask 09/20/24 22:10 O2 Flow Rate 4 09/20/24 22:10 BMI result Body Mass Index 26.3 Const: Other: Appearance: Alert. Oriented X3. No acute distress. Eyes: Pupils equal, round and reactive to light. ENT: Pharynx normal. Neck: Normal inspection. Neck supple. No lymph nodes noted. No crepitus CVS: Normal heart rate and rhythm. Pulses normal. Normal S1 and S2 Respiratory: Patient currently on a nebulization treatment, bilateral minimal wheezing, fair to good air movement bilaterally still tachypneic Abdomen: Soft and nontender. No rigidity. No distention. Skin: Skin warm and dry. Normal skin color. Normal skin turgor. Extremities: No lower extremity edema. No Lacerations. No Rash Neuro: Oriented X 3. No motor deficit. No sensory deficit. Moving all extremities. No slurred speech. CN 2 through 12 grossly intact Psych: calm, cooperative, normal affect Course Course Course Narrative: This is a Rapid Medical Examination (RME) performed by Rajeev Quiroga PA-C in triage. Full HPI, ROS, assessment and treatment plan per primary provider in the Main ED. Hx: 44-year-old female with history of asthma presents to the ED today for evaluation of nasal congestion, productive cough, shortness of breath, body aches/leg restlessness. Admits to using her inhalers over the last few days without relief. Also tried Mucinex. No known sick contacts. PE/vitals: satting 82% on room air. placed on O2. Lungs with diminished breath sounds throughout. No adventitious breath sounds Plan: labs, cxr, viral swabs Medications Administered Discontinued Medications Generic Name Dose Route Start Last Admin Trade Name Freq PRN Reason Stop Dose Admin Albuterol Sulfate 5 mg/ 0 mg 09/20/24 20:44 09/20/24 20:46 Albuterol/Ipratropium 3 ml INHALE 09/20/24 20:45 1 each ONCE ONE Administration Magnesium Sulfate 2 gm in 50 mls @ 25 mls/hr 09/20/24 21:05 09/20/24 21:11 Magnesium Sulfate/H2o IV 09/20/24 23:04 25 mls/hr ONCE ONE Administration Methylprednisolone Sodium Succinate 125 mg 09/20/24 21:05 09/20/24 21:11 Methylprednisolone Sod Succ 125 Mg/2 Ml Vial IVPUSH 09/20/24 21:06 125 mg ONCE ONE Administration Medical Decision Making Medical Decision Making [facility] Narrative: Patient's white blood cell count 27.2 My interpretation of chest x-ray: No obvious opacities. Radiology report: Mild diffuse interstitial opacities, possible small airway disease It is possible that patient may have undiagnosed COPD. Empirically, patient was given a dose of IV azithromycin and azithromycin and IV fluids. Sepsis is not suspected I discussed the patient with Dr. Zendejas, patient being admitted Differential Diagnosis Differential Diagnoses: The differential diagnosis associated with the presentation includes (Asthma, new onset COPD, pneumonia, viral URI) Admission/Observation Consideration of admission/observation: Escalation of care including admission/observation considered (Given patient's initial presentation and low oxygen saturation, admission was considered) Lab Data MDM Lab Attestation statement: I reviewed the patient's lab results. 09/20/24 20:41 09/20/24 21:00 Labs: Lab Results 09/20/24 09/20/24 Range/Units 20:41 21:00 WBC 27.2 H (4.8-10.8) X10*3/uL RBC 4.40 (4.20-5.50) X10*6/uL Hgb 13.9 (12.0-16.0) g/dl Hct 40.3 (37.0-47.0) % MCV 91.6 (80.0-98.0) fL MCH 31.6 (27.0-33.0) pg MCHC 34.5 (31.0-35.0) g/dl RDW 13.2 (11.0-16.0) % Plt Count 282 D (160-400) X10*3/uL MPV 9.7 (9.4-12.3) fL Immature Gran % (Auto) 0.8 H (0.0-0.4) % Neut % (Auto) 87.2 H (45-73) % Lymph % (Auto) 6.4 L (20-40) % [place] % (Auto) 5.2 (2-11) % Eos % (Auto) 0.1 (0-4) % Baso % (Auto) 0.3 (0-2) % Lymph # (Auto) 1.7 (1.2-4.9) X10*3/uL [place] # (Auto) 1.4 H (0.1-1.2) X10*3/uL Eos # (Auto) 0.0 (0.0-0.4) X10*3/uL Baso # (Auto) 0.1 (0.0-0.2) X10*3/uL Abs Immat Gran (auto) 0.21 H (0.00-0.03) X10*3/uL Absolute Neuts (auto) 23.7 H (2.0-8.3) x10*3/uL Absolute Nucleated RBC 0.000 (0.0-0.012) X10*3/uL Nucleated RBC % (auto) 0.0 (0.0-0.2) /100WBC Smear Tech's Comments VERIFIED Sodium 137 (135-145) mmol/L Potassium 4.1 (3.3-5.1) mmol/L Chloride 103 (96-108) mmol/L Carbon Dioxide 23 (22-29) mmol/L Anion Gap 15 (12-20) BUN 7 L (9-16) mg/dL Creatinine 0.62 (0.5-1.4) mg/dL Estim Creat Clear Calc 108.4 Estimated GFR > 60 Random Glucose 128 H (60-115) mg/dL Calcium 9.4 (8.4-10.2) mg/dL Magnesium 1.7 (1.6-2.6) mg/dL Total Bilirubin 0.7 (0.0-1.0) mg/dL AST 22 (5-31) U/L ALT 14 (0-31) U/L Alkaline Phosphatase 107 (39-117) U/L Total Protein 7.2 (6.5-8.0) g/dL Albumin 4.0 (3.5-5.0) g/dL Influenza Type A (PCR) NEGATIVE (Negative) Influenza Type B (PCR) NEGATIVE (Negative) RSV RNA Qual (PCR) NEGATIVE (Negative) SARS-CoV-2 RNA (RT-PCR) NEGATIVE (Negative) Independent Interpretation I performed an independent interpretation of an: Plain X-Ray Radiology Impression Discussion of test interpretation with radiology: I have reviewed the radiologist's reading. Radiologist Impression: Mildly diffuse interstitial opacities with bronchial wall thickening. No significant pleural effusion or pneumothorax. Heart size is normal. No acute fracture. IMPRESSION: Possible small airways disease. Critical Care Time Critical Care Time Critical Care Time: Yes Total Critical Care Time: 60 Attestation: I have personally provided critical care time. Time includes review of lab data, radiology results, discussion with consultants, and monitoring for potential decompensation. Intervention performed as documented. Discharge Plan Discharge Clinical Impression: Asthma exacerbation Patient Disposition: Admitted As Inpatient Prescriptions: No Action melatonin 3 mg tablet 3 mg PO BEDTIME PRN (Reason: Sleep) albuterol sulfate [Ventolin HFA] 90 mcg/actuation HFA aerosol inhaler 2 puff INHALATION Q4H PRN (Reason: wheezing) multivitamin with folic acid [Daily-Claudio (with folic acid)] 400 mcg tablet 1 tab PO DAILY loratadine 10 mg Tablet 10 mg PO DAILY Qty: 30 0RF prednisone 20 mg tablet 40 mg PO DAILY Qty: 8 0RF nicotine (polacrilex) 2 mg gum 2 mg buccal Q2H Qty: 100 0RF Print Language: Albanian
--- NOTE | 2024-09-20 20:32 | PC.NURSE ---
This RN placed on O2 via nasal cannula initially at 2L-but not much uimprovement. ^L nasal cannula with SpO2:89-90%. Pt brought to room, respiratory called, primary RN at the bedside.
--- NOTE | 2024-09-20 20:43 | PC.NURSE ---
Upon patient's arrival to bedside she was found to have an SPO2 in the mid-high 80s with 6LPM via NC, pt placed on the cardiac monitor technician; sinus tach. Respiratory to bedside for assessment, confirms that the pt was moving air although there were audible wheezes. Pt's O2 sat continued to dip into the mid-high 80s while on the 6LPM NC, which did improve to the low 90s when prompted to take a deep breathe and/or cough. Pt was noted to be congested and unable to breathe through her nose, Respiratory transitioned the pt over to an oxymask at 4LPM with her O2 sat maintaining in the low 90s. Breathing treatment is being set up by RT at this time
[2024-09-20] MEDS: Albuterol Sulfate 5 MG, Albuterol/Iprat 2.5/0.5MG 3 ML 3 ML INHALE (20:46)
[2024-09-20 20:50] VITALS: PULSE 104; O2SAT 94
--- OUTSIDE RECORDS SUMMARY | 2024-09-20 20:54 | XMS_ITS | Referral Summary ---
Author Organization [facility] Address [address] [place] [address] Care Team Providers Care Calender Operator Name Role Phone Patient, Has No Pcp [...] Not on file Insurance [employer] Care Teams Calender Operator Relationship Specialty Start Date End Date Patient, Has No Pcp Or Ref DO NOT EDIT THIS RECORD VIA PROVIDER ON THE FLY PCP - General Scrub Wheel Operator 03/27/24
--- OUTSIDE RECORDS SUMMARY | 2024-09-20 20:54 | XMS_ITS | Clinical Summary ---
Author Organization [facility] Address [address] [place] [address] Care Team Providers Care Burrer Operator Name Role Phone Patient, Has No [...] Colonoscopy 1978 FOBT / Fit Test 1978 HPV and Pap Smear 1978 Pap Smear 1978 Sigmoidoscopy 1978 Hepatitis B Vaccines (1 of 3 - 19+ 3-dose series) 1997 COVID-19 Vaccine (1 - 2023-2 5 season) 2024 Alcohol/Substance Use Screening 06/05/2024 Influenza Vaccine (Season Ended) 2025 05/13/2022, 03/05/2020, 03/25/2019 DTaP,Tdap,and Td Vaccines (3 - Td or Tdap) 07/25/2029 07/25/2019, 10/08/2014 RSV Vaccine (60+ years old and patients) (1 - 1-dose 75+ series) 2053 Pneumococcal Vaccine: Pediatric (0-5 Years) and At-Risk Patients (6-50 Years) Aged Out 03/05/2020 No longer eligible based on patient's age to complete this topic Mammogram Discontinued 09/23/2022 HIV Screening Completed 11/18/2022 Insurance [employer] Care Teams Burrer Operator Relationship Specialty Start Date End Date Patient, Has No Pcp Or Ref DO NOT EDIT THIS RECORD VIA PROVIDER ON THE FLY PCP - General Farm Reporter 03/27/24
--- OUTSIDE RECORDS SUMMARY | 2024-09-20 20:55 | XMS_ITS | Encounter Summary ---
Author Organization [employer] Address [address] [address] Care Team Providers Care Public Relations Representative Name Role Phone Demetrio Gonzales MD Primary Care Prov ider Reason for Visit * Reason Onset Date Comments Nurse Triage 07/31/2024 Encounter Details Date Type Department Care Team ([facility] st Contact Info) Description 07/31/2024 Telephone [facility] MED & PEDS [address] [place] [address] Demetrio Gonzales MD [address] [place] [address] Nurse Triage Social History Tobacco Use Types Packs/Day Years Used Date Smoking Tobacco: Every Day Cigarettes 0.3 33.3 Started: 06/05/1991 Smokeless Tobacco: Never Depression Answer [...] AM EDT documented as of this encounter Miscellaneous Notes * Telephone Encounter - Ary Moore RN - 07/31/2024 12:12 PM EST Triage call Pt reports being seen at [facility] ED 07/25/24 for head injury. Pt was hit with piece of ice 2-3 inches thick after hard hat fell off. Ice came from top of trailer truck. (ED report is on the chart). Pt reports today still has mild headache and is taking tylenol with good effect. Pt reports feels like I walk a little side ways at times . Overall Pt reports improvement. TSK visit with PCP Wood today at 300pm. Insurance is verified as active prior to booking. Protocol Used: Head Injury (Adult) Protocol-Based Disposition: See in Office or Video Visit Today Video visit offered and caller accepted Positive Triage Question: * Patient wants to be seen * All higher-acuity triage questions were negative Care Advice Discussed: * Reassurance and Education - Direct Blow (Minor Bruise, Contusion) * Use a Cold Pack for Pain, Swelling, or Bruising * Expected Course * Reasons To Call Back - Severe headache lasts over 2 hours after ice pack and pain medicines - Extremity weakness or numbness occurs - Slurred speech or double vision occurs - Vomiting occurs - You become worse * Telephone Encounter - Nidia Winter - 07/31/2024 11:50 AM EST Patient calling to report ED visit on : Date: 07/25/24 Hospital: [facility] Seen for: lump on head due to and ice falling on her Symptomatic Yes some light headed *if yes message should go to Triage CT scan was done Patient advised will forward to team nurse for follow up documented in this encounter Plan of Treatment Not on file documented as of this encounter Visit Diagnoses Not on filedocumented in this encounter Additional Health Concerns Assessment Noted Time PHQ-9 Depression Total Score: 0 11/03/19 11:18 AM EDT documented as of this encounter Care Teams Public Relations Representative Relationship Specialty Start Date End Date Demetrio Gonzales MD [address] [place] [phone] PCP - General Internal Medicine 03/27/19 documented as of this encounter
--- OUTSIDE RECORDS SUMMARY | 2024-09-20 20:55 | XMS_ITS | Encounter Summary ---
Author Organization [employer] Address 75 [facility] [address] [place] [address] Care Team Providers Care Mill Representative Name Role Phone Demetrio Gonzales MD Primary Care Prov ider Reason for Visit * Reason Onset Date Comments Med Refill 05/16/2023 Encounter Details Date Type Department Care Team ([facility] st Contact Info) Description 05/16/2023 Refill [facility] MED & PEDS [address] [place] [address] Beronica Partida MD [address] [place] [address] Mild intermittent asthma without complication Social History [...] documented as of this encounter Care Teams Mill Representative Relationship Specialty Start Date End Date Demetrio Gonzales MD [address] [place] [phone] PCP - General Internal Medicine 03/27/19 documented as of this encounter
--- OUTSIDE RECORDS SUMMARY | 2024-09-20 20:55 | XMS_ITS | Clinical Summary ---
Author Organization [employer] Address 75 [facility] 7[address] [place] [address] Care Team Providers Care Director Epidemiology Name Role Phone Demetrio Gonzales MD Primary Care Prov ider Allergies No known active allergies Medications * This document contains information received from the source organization and may not represent a complete record from that organization. nicotine polacrilex (Nicorette) 2 MG gum Take by mouth every 2 (two) hours. 02/03/2022 Active albuterol (Ventolin HFA) 108 (90 Base) MCG/ACT inhaler Inhale 2 puffs every 4 (four) hours if needed for wheezing. 18 g 1 05/27/2024 05/27/20 25 Active loratadine (Claritin) 10 MG tablet Take 1 tablet by mouth Once per day. 08/19/2024 Active predniSONE (Deltasone) 20 MG tablet Take 2 tablets by mouth Once per day. 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 Injury happened 11/8/22. Attending PT at [facility] PT 2 x a week. Pain slightly [...] Encounters Date Type Department Care Team Description 08/20/2024 Telephone [facility] [address] [place] [address] Dawn Bloom, PharmD 08/20/2024 Patient Outreach [facility] [address] [place] [address] Demetrio Gonzales MD Transition Of Care (Tcm) (HDF scheduled ) 08/16/2024 Population Health Risk Score [facility] (C3) Department [address] [place] [phone] Provider, Population Health Generic 07/31/2024 3:00 PM EST Telemedicine [facility] MED & PEDS [address] [place] [address] Demetrio Gonzales MD Traumatic injury of head, subsequent encounter (Primary Dx) 07/31/2024 Travel 07/31/2024 Telephone [facility] MED [facility] PED[facility] [address] [place] [address] Demetrio Gonzales MD Nurse Triage 07/25/2024 Orders Only [facility] Immunizations Name Administration [...] 0.3 33.3 Started: 06/05/1991 Smokeless Tobacco: Never Tobacco Cessation:Ready [...] Procedure Name Priority Date/Time Associated Diagnosis Comments XR CHEST 1 VIEW Routine 08/18/2024 9:27 AM EDT VENOUS BLOOD GAS Routine 08/18/2024 8:46 AM EDT COMPREHENSIVE METABOLIC PANEL Routine 08/18/2024 8:38 AM EDT CBC WITH AUTO DIFFERENTIAL Routine 08/18/2024 8:38 AM EDT SARS COV2/INFLUENZA A/B AND RSV RNA QL NAAT Routine 08/18/2024 8:[address] HEAD WO CONTRAST Routine 07/25/2024 7 [...] Recently Relevant to Health Maintenance Results * XR Chest 1 View (08/18/2024 9:27 AM EDT) Anatomical Region Laterality Modality Chest Radiographic Ilda ging 08/18/2024 9:27 AM EDT Narrative 08/18/2024 9:29 AM EDT ? [facility] ?[address] ?[place] [address] ?XRay Report ? Signed ? Patient: Galloway,Anne ?MR#: [id number] ? : 1980 ?Acct:[id number] ? Age/Sex: 44 / F ?ADM Date: 08/18/24 ? Loc: HO.ED ? Attending Dr: ? Ordering Physician: Aelx Looney MD ?? Date of Service: 08/18/24 ?? Procedure(s): XR chest 1V ?? Accession Number(s): [id number] ? cc: Demetrio Gonzales MD; Alex Looney MD ? CLINICAL HISTORY: cough ? 1 view chest x-ray ? Comparison: None ? Findings: ?? The lungs are clear. ?? Heart size is normal. ?? No acute fracture. ? IMPRESSION: ?? 1. No acute findings. ? This document has been electronically signed by: Dick Cruz MD on ?? 08/18/2024 09:27:22 ? Dictated By: ?Dick Cruz MD ? Signed By: ?<Electronically signed by Dick Cruz MD in OV> ? 08/18/24 0928 ? DD/ 0927 ? TD/TT: 08/18/24 0927 ? Front Office Representative: ? Procedure Note Pat, Joe - 08/18/[address] [address] XRay Report Signed Patient: Anne Galloway#: [id number] : 1980Acct:[id number] Age/Sex: 44 / FADM Date: 08/18/24 Loc: HO.ED Attending Dr: Ordering Physician: Alex Looney MD Date of Service: 08/18/24 Procedure(s): XR chest 1V Accession Number(s): [id number] cc: Demetrio Gonzales MD; Alex Looney MD CLINICAL HISTORY: cough 1 view chest x-ray Comparison: None Findings: The lungs are clear. Heart size is normal. No acute fracture. IMPRESSION: 1. No acute findings. This document has been electronically signed by: Dick Cruz MD on 08/18/2024 09:27:22 Dictated By: Dick Cruz MD Signed By: <Electronically signed by Dick Cruz MD in OV> 08/18/[address] DD/ 6 TD/TT: 08/18/24926 Front Office Representative: [facility] External Provider IMG XR PROCEDURES Final Result * VENOUS BLOOD GAS (08/18/2024 8:46 AM EDT) VBG pH 7.43 7.32 - 7.43 [facility] Comment:METER #: [id number] additional_comment: [place] mata VBG PCO2 37 mmHg [facility] Comment:METER #: [id number] additional_comment: [place] mata VBG PO2 75 mmHg [facility] Comment:METER #: [id number] additional_comment: [place] mata VBG Base Excess 1.5 mmol/L [facility] Comment:METER #: [id number] additional_comment: [place] mata VBG HCO3 25 22 - 26 mmol/L [facility] Comment:METER #: [id number] additional_comment: [place] mata O2 Sat, Clem 98.0 % [facility] Comment:METER #: [id number] additional_comment: [place] mata 08/18/2024 8:46 AM EDT 08/18/2024 8:50 AM EDT us Generic External Data Provider LAB BLOOD ORDERAB LES Final Result [facility] [address] [place] [phone] * SARS-CoV-2 RNA, Influenza A/B, and RSV RNA, Ql NAAT (08/18/2024 8:38 AM EDT) [facility] Influenza A PCR NEGATIVE Negative [facility] Influenza B PCR NEGATIVE Negative [facility] Resp Syncy Virus RNA Qual PCR NEGATIVE Negative [facility] SARS COV2 PCR NEGATIVE Negative [facility] Comment:All test results mus t be correlated with clinical findings.Negative results do not preclude SARS-CoV2, influenza Avirus, influenza B virus and/or RSV infectionand should not be used as the sole basis for treatment orother patient management decisions. Negative results must becombined with clinical observations, patient history, andepidemiological information.This test has not been evaluated for monitoring treatment ofinfection.This test has been authorized by the FDA under an EmergencyUse Authorization (EUA) for use by authorized laboratories.Testing performed on the [employer] GeneXpert utilizingreal-time RT-PCR.All SARS CoV2 and positive influenza A/B results arereported to [facility]. 08/18/2024 8:38 AM EDT 08/18/2024 8:42 AM EDT Generic External Data Provider LAB MICROBIOLOGY - GENERAL ORDERABLES Final Result [facility] [address] [place] [address] [phone] * (ABNORMAL) CBC auto differential (08/18/2024 8:38 AM EDT) [facility] White Blood Count 14.0(H) 4.8 - 10.8 X10*3/uL [facility] Red Blood Count 4.58 4.20 - 5.50 X10*6/uL [facility] Hemoglobin 14.5 12.0 - 16.0 g/dl [facility] Hematocrit 41.6 37.0 - 47.0 % [facility] Mean Corpuscular Volume 90.8 80.0 - 98.0 fL [facility] Mean Corpuscular Hemoglobin 31.7 27.0 - 33.0 pg [facility] Mean Corpuscular HGB Conc 34.9 31.0 - 35.0 g/dl [facility] Red Cell Distribution Width 13.2 11.0 - 16.0 % [facility] Platelet Count 280 160 - 400 X10*3/uL [facility] Mean Platelet Volume 9.4 9.4 - 12.3 fL [facility] Neutrophils Percent Auto 68.3 45 - 73 % [facility] Imm Gran Pct Auto 0.3 0.0 - 0.4 % [facility] Lymphocytes Percent Auto 20.5 20 - 40 % [facility] Monocytes Percent Auto 6.1 2 - 11 % [facility] Eosinophils Percent Auto 4.4(H) 0 - 4 % [facility] Basophils Percent Auto 0.4 0 - 2 % [facility] NRBC Pct Auto 0.0 0.0 - 0.2 /100WBC [facility] Neutrophils Absolute Auto 9.6(H) 2.0 - 8.3 x10*3/uL [facility] Imm Gran Abs Auto 0.04(H) 0.00 - 0.03 X10*3/uL [facility] Lymphocytes Absolute Auto 2.9 1.2 - 4.9 X10*3/uL [facility] Monocytes Absolute Auto 0.9 0.1 - 1.2 X10*3/uL [facility] Eosinophils Absolute Auto 0.6(H) 0.0 - 0.4 X10*3/uL [facility] Basophils Absolute Auto 0.1 0.0 - 0.2 X10*3/uL [facility] NRBC Abs Auto 0.000 0.0 - 0.012 X10*3/uL [facility] 08/18/2024 8:38 AM EDT 08/18/2024 8:42 AM EDT us Generic External Data Provider LAB BLOOD ORDERAB LES Final Result [facility] [address] [place] [address] [phone] * (ABNORMAL) Comprehensive Metabolic Panel (08/18/2024 8:38 AM EDT) Sodium 139 135 - 145 mmol/L [facility] Potassium 4.0 3.3 - 5.1 mmol/L [facility] Chloride 109(H) 96 - 108 mmol/L [facility] Carbon Dioxide 23 22 - 29 mmol/L [facility] Anion Gap 11(L) 12 - 20 [facility] Urea Nitrogen (BUN) 8(L) 9 - 16 mg/dL [facility] Creatinine, Serum 0.64 0.5 - 1.4 mg/dL [facility] Creatinine Clr Calc Pharmacy 105.1 [facility] Comment:Provided height and weight: 160.02 cm,73.1 kg.eGFR (calculated from the MDRD study equation) and eCrCl(calculated from the Cockcroft-Gault equation) are based ondifferent parameters and may not yield comparable results.If eCrCl result is absurd, please check patient'sheight/weight. Estimated Glomerular Filt Rate >60 [facility] Comment:Chronic Kidney Disea se: Estimated GFR < 60 mL/min/1.44o5Uajndx Kidney Disease: Estimated GFR < 15 mL/min/1.73m2 Glucose 103 60 - 115 mg/dL [facility] Calcium 8.7 8.4 - 10.2 mg/dL [facility] Bilirubin, Total 0.2 0.0 - 1.0 mg/dL [facility] Aspartate Amino Transferase 19 5 - 31 U/L [facility] Alanine Aminotransferase 11 0 - 31 U/L [facility] Total Protein 7.0 6.5 - 8.0 g/dL [facility] Albumin Level 3.9 3.5 - 5.0 g/dL [facility] Alkaline Phosphatase 79 39 - 117 U/L [facility] 08/18/2024 8:38 AM EDT 08/18/2024 8:42 AM EDT us Generic External Data Provider LAB BLOOD ORDERAB LES Final Result [facility] [address] [place] [address] [phone] * CT Cervical Spine w/o Contrast (07/25/2024 7:00 PM EST) Anatomical Region Laterality Modality Spine, C-spine Computed Tomogra phy 07/25/2024 7:00 PM EST Narrative 07/25/2024 7:01 PM EST ? [facility] ?[address] ?[place] [address] ? CT Scan Report ? Signed ? Patient: Galloway,Anne ?MR#: [id number] ? : 1980 ?Acct:[id number] ? Age/Sex: 44 / F ?ADM Date: 07/25/24 ? Loc: HO.ED ? Attending Dr: ? Ordering Physician: Lea Pereira NP ?? Date of Service: 07/25/24 ?? Procedure(s): CT cervical spine wo IV con ?? Accession Number(s): [id number] ? cc: Demetrio Gonzales MD; Lea Pereira NP ? Report Number: ?? [id number]: Total DLP = ??302.69 mGy-cm ? CLINICAL [...] DD/ 1900 ? TD/TT: 07/25/24 1900 ? Front Office Representative: ? Procedure Note Pat, Joe - 07/25/[address] [place] [address] CT Scan Report Signed Patient: Anne GallowayMR#: [id number] : 1980Acct:[id number] Age/Sex: 44 / FADM Date: 07/25/24 Loc: HO.ED Attending Dr: Ordering Physician: Lea Pereira NP Date of Service: 07/25/24 Procedure(s): CT cervical spine wo IV con Accession Number(s): [id number] cc: Demetrio Gonzales MD; Lea Pereira NP Report Number: [id number]: Total DLP = 302.69 mGy-cm CLINICAL HISTORY: [...] Chowdhury MD in OV> 07/25/24 190 DD/ 190 TD/TT: 07/25/24 190 Front Office Representative: [facility] External Provider IMG CT PROCEDURES Edited Result - Final * CT Head w/o Contrast (07/25/2024 7:00 PM EST) Anatomical Region Laterality Modality Head, Neck Computed Tomogra phy 07/25/2024 7:00 PM EST Narrative 07/25/2024 7:02 PM EST ? [facility] ?[address] [facility] ?[place] [address] ? CT Scan Report ? Signed ? Patient: Galloway,Anne ?MR#: [id number] ? : 1980 ?Acct:[id number] ? Age/Sex: 44 / F ?ADM Date: 02/20/25 ? Loc: HO.ED ? Attending Dr: ? Ordering Physician: Lea Pereira NP ?? Date of Service: 07/25/24 ?? Procedure(s): CT head/brain wo IV con ?? Accession Number(s): [id number] ? cc: Demetrio Gonzales MD; Lea Pereira NP ? Report Number: ?? [id number]: Total DLP = ??653.17 mGy-cm ? CLINICAL HISTORY: head injury at work ? CT of the head without contrast. ? No comparison. ? Findings: ?? No acute hemorrhage or infarct is seen. No masses are identified and there ?? is no hydrocephalus. There is no mass-effect. ? Impression: ?? No acute intracranial abnormality is identified. ? This document has been electronically signed by: Ardián Khan MD on ?? 07/25/2024 19:00:41 ? Dictated By: ?Juan Manuel Chowdhury MD ? Signed By: ?<Electronically signed by Juan Manuel Chowdhury MD in OV> ?07/25/24 1901 ? DD/ 1900 ? TD/TT: 07/25/241899 ? Front Office Representative: ? Procedure Note Joe Stewart - 07/25/[address] [address] [address] Scan Report Signed Patient: Anne GallowayMR#: [id number] : 1980Acct:[id number] Age/Sex: 44 / FADM Date: 07/25/24 Loc: HO.ED Attending Dr: Ordering Physician: Lea Pereira NP Date of Service: 07/25/24 Procedure(s): CT head/brain wo IV con Accession Number(s): [id number] cc: Demetrio Gonzales MD; Lea Pereira NP Report Number: [id number]: Total DLP = 653.17 mGy-cm CLINICAL HISTORY: [...] in OV> 07/25/241900 DD/ 99 TD/TT: 07/25/241899 Front Office Representative: [facility] External Provider IMG CT PROCEDURES Edited Result - Final * HIV-1 RNA, Quantitative, Real-Time PCR with Reflex to Genotype (RTI, PI, Integrase) (11/18/2022 11:28 AM EDT) Pathologist [facility] HIV 1 RNA, QN PCR NOT DETECTED copies/mL [facility], HIV 1 RNA, QN PCR NOT DETECTED Log copies/mL [facility], Comment: REFERENCE RANGE: NOT DETECTED copies/mL ?NOT DETECTED ??Log copies/mL This test was performed using Real-Time Polymerase Chain Reaction. Reportable range is 20 to 10,000,000 copies/mL (1.30-7.00 Log copies/mL). 11/18/2022 11:2 8 AM EDT 11/18/2022 11:28 AM EDT Narrative [facility] - 11/24/2022 8:03 PM EDT FASTING:UNKNOWN FASTING: UNKNOWN Demetrio Gallegos MD LAB BLOOD ORDERABL ES Final Result [facility] [address], [place] [address] [employer], [address] [place] [address] * (ABNORMAL) Lipid Panel, Standard (11/18/2022 11:28 AM EDT) Pathologist [facility] Cholesterol, Total 154 <200 mg/dL [employer] [place] [facility] HDL Cholesterol 49(L) > OR = 50 mg/dL [facility] [place] [facility] Triglycerides 53 <150 mg/dL [employer] [place] [employer] LDL Cholesterol 91 mg/dL (calc) [facility] Comment: Reference range: <100 Desirable range <100 mg/dL for primary prevention; ?? <70 mg/dL for patients with CHD or diabetic patients with > or = 2 CHD risk factors. LDL-C is now calculated using the Michael calculation, which is a validated novel method providing better accuracy than the Friedewald equation in the estimation of LDL-C. Dayday CASIANO et al. MILAGRO. 2013;310(19): 7930-2426 (http://education.[employer]/faq/WMI347) Chol/HDLC Ratio 3.1 <5.0 (calc) [facility] Non-HDL Cholesterol 105 <130 mg/dL (calc) [facility] Comment: For patients with diabetes plus 1 major ASCVD risk factor, treating to a non-HDL-C goal of <100 mg/dL (LDL-C of <70 mg/dL) is considered a therapeutic option. Blood Venous blood specimen / Unknown 11/18/2022 11:28 AM EDT 11/18/2022 11:28 AM EDT Narrative [facility] - 11/24/2022 8:03 PM EDT FASTING:UNKNOWN FASTING: UNKNOWN Demetrio Gallegos MD LAB BLOOD ORDERABL ES Final Result [facility] [address], [place] [address] [employer] [facility] [place] [facility] [address] [place] [address] * BI Mammogram Screening Tomosynthesis Bilateral (09/23/2022 2:15 PM EDT) Anatomical Region Laterality Modality Breast Bilateral Mammography 09/23/2022 2:15 PM EDT Narrative 09/27/2022 7:27 AM EDT ? [facility] ? [address] ?[place] [address] ? Mammography Report ? Signed ? Patient: Galloway,Anne ?MR#: [id number] ? : 1980 ?Acct:[id number] ? Age/Sex: 42 / F ?ADM Date: 04/21/23 ? Loc: HO.MAMMO ? Attending Dr: Demetrio Gallegos MD ? Ordering Physician: Demetrio Gonzales MD ?Res ?? ults: 2Benign Findings ? Date of Service: 09/23/22 ?Follow Up: 1 Year From Orig ?? inal Mammogram ? Procedure(s): MM tomosynthesis screening BI ?? Accession Number(s): [id number] ? cc: Demetrio Gonzales MD ? EXAMINATION: [...] signed by Chino Lin MD in OV> ?09/27/723 ? DD/ 1415 ? TD/TT: ? Front Office Representative: MONIQUE ? Procedure Note Pat, Image - 12/01/2022 [facility] [address] [place] [address] Mammography Report Signed Patient: Patrick Galloway#: [id number] : 1980Acct:[id number] Age/Sex: 42 / FADM Date: 09/23/22 Loc: HO.MAMMO Attending Dr: Demetrio Gallegos MD Ordering Physician: Demetrio Gonzales ults: 2Benign Findings Date of Service: 09/23/22Follow Up: 1 Year From Orig inal Mammogram Procedure(s): MM tomosynthesis screening BI Accession Number(s): [id number] cc: Demetrio Gonzales MD EXAMINATION: MM SCREENING [...] in OV> 09/27/22 0724 DD/ 1415 TD/TT: Front Office Representative: ENEIDA [facility] External Provider IMG BI PROCEDURES Final Result from Last 3 Months or Most Recently Relevant to Health Maintenance Insurance [facility] C3 GENERIC TPL on file Care Teams Director Epidemiology Relationship Specialty Start Date End Date WoodDemetrio Limon MD [address] [place] [phone] PCP - General Internal Medicine 03/27/19
[2024-09-20 20:56] LABS: Basophils Absolute Auto 0.1 X10*3/uL (0.0-0.2); Basophils Percent Auto 0.3 % (0-2); Eosinophils Percent Auto 0.1 % (0-4); Hematocrit 40.3 % (37.0-47.0); Hemoglobin 13.9 g/dl (12.0-16.0); Imm Gran Abs Auto 0.21 X10*3/uL (0.00-0.03); Imm Gran Pct Auto 0.8 % (0.0-0.4); Lymphocytes Absolute Auto 1.7 X10*3/uL (1.2-4.9); Lymphocytes Percent Auto 6.4 % (20-40); MANUAL DIFF FLAG SCAN; Mean Corpuscular HGB Conc 34.5 g/dl (31.0-35.0); Mean Corpuscular Hemoglobin 31.6 pg (27.0-33.0); Mean Corpuscular Volume 91.6 fL (80.0-98.0); Mean Platelet Volume 9.7 fL (9.4-12.3); Monocytes Absolute Auto 1.4 X10*3/uL (0.1-1.2); Monocytes Percent Auto 5.2 % (2-11); Neutrophils Absolute Auto 23.7 x10*3/uL (2.0-8.3); Neutrophils Percent Auto 87.2 % (45-73); Platelet Count 282 X10*3/uL (160-400); Red Cell Distribution Width 13.2 % (11.0-16.0); SCAN SMEAR FLAG 1; White Blood Count 27.2 X10*3/uL (4.8-10.8)
[2024-09-20] MEDS: methylPREDNISolone Sod Succ 125 MG/2 ML VIAL IVPUSH (21:11)
[2024-09-20] MEDS: Magnesium Sulfate/H2O 2 GM/50 ML PIGGYBACK IV (21:11)
--- NOTE | 2024-09-20 21:16 | ED_ITS ---
HPI - SOB/Dyspnea General Chief Complaint: Dyspnea Stated Complaint: SOB, Fever, Cough w/ heavy mucus Time Seen by Provider: 09/20/24 21:00 Related Data Home Medications ?Medication ?Instructions ?Recorded ?Confirmed albuterol sulfate 90 mcg/actuation 2 puff inhalation Q4H PRN wheezing 08/18/24 08/18/24 aerosol inhaler (Ventolin HFA) melatonin 3 mg tablet 3 mg PO BEDTIME PRN Sleep 08/18/24 08/18/24 multivitamin with folic acid 400 1 tab PO DAILY 08/18/24 08/18/24 mcg tablet (Daily-Claudio (with folic acid)) Previous Rx's ?Medication ?Instructions ?Recorded loratadine 10 mg tablet 10 mg PO DAILY #30 tabs 08/19/24 nicotine (polacrilex) 2 mg gum 2 mg buccal Q2H #100 ea 08/19/24 prednisone 20 mg tablet 40 mg (2 x 20 mg) PO DAILY #8 tabs 08/19/24 Allergies Allergy/AdvReac Type Severity Reaction Status Date / Time No Known Allergies Allergy Verified 09/20/24 20:25 [facility] Past Medical History Medical History Cigarette smoker Asthma Social History Social History Household Members: Children Housing: Apartment Do you presently have visiting nurse or other home services: No Patient Tobacco Use Status: Current everyday Tobacco user Tobacco use type: Cigarette Cigarettes Per Day: 3 Substance Use Type: Marijuana Advance Directives: No Advance Directives Information Provided: No Physical Exam 2 Vital Signs: Vital Signs: Last Vital Signs Temp 99.2 F 09/20/24 20:18 Pulse 104 H 09/20/24 20:50 Resp 22 H 09/20/24 20:18 BP 125/82 09/20/24 20:18 Pulse Ox 82 L 09/20/24 20:18 O2 Del Method Room Air 09/20/24 20:18 BMI result Body Mass Index 26.3 Medications Administered Generic Name Dose Route Start Last Admin Trade Name Freq PRN Reason Stop Dose Admin Magnesium Sulfate 2 gm in 50 mls @ 25 mls/hr 09/20/24 21:05 09/20/24 21:11 Magnesium Sulfate/H2o IV 09/20/24 23:04 25 mls/hr ONCE ONE Administration Discontinued Medications Generic Name Dose Route Start Last Admin Trade Name Mg PRN Reason Stop Dose Admin Albuterol Sulfate 5 mg/ 0 mg 09/20/24 20:44 09/20/24 20:46 Albuterol/Ipratropium 3 ml INHALE 09/20/24 20:45 1 each ONCE ONE Administration Methylprednisolone Sodium Succinate 125 mg 09/20/24 21:05 09/20/24 21:11 Methylprednisolone Sod Succ 125 Mg/2 Ml Vial IVPUSH 09/20/24 21:06 125 mg ONCE ONE Administration Medical Decision Making Lab Data 09/20/24 20:41 09/20/24 20:41 Labs: Lab Results 09/20/24 Range/Units 20:41 WBC 27.2 H (4.8-10.8) X10*3/uL RBC 4.40 (4.20-5.50) X10*6/uL Hgb 13.9 (12.0-16.0) g/dl Hct 40.3 (37.0-47.0) % MCV 91.6 (80.0-98.0) fL MCH 31.6 (27.0-33.0) pg MCHC 34.5 (31.0-35.0) g/dl RDW 13.2 (11.0-16.0) % Plt Count 282 D (160-400) X10*3/uL MPV 9.7 (9.4-12.3) fL Immature Gran % (Auto) 0.8 H (0.0-0.4) % Neut % (Auto) 87.2 H (45-73) % Lymph % (Auto) 6.4 L (20-40) % [place] % (Auto) 5.2 (2-11) % Eos % (Auto) 0.1 (0-4) % Baso % (Auto) 0.3 (0-2) % Lymph # (Auto) 1.7 (1.2-4.9) X10*3/uL [place] # (Auto) 1.4 H (0.1-1.2) X10*3/uL Eos # (Auto) 0.0 (0.0-0.4) X10*3/uL Baso # (Auto) 0.1 (0.0-0.2) X10*3/uL Abs Immat Gran (auto) 0.21 H (0.00-0.03) X10*3/uL Absolute Neuts (auto) 23.7 H (2.0-8.3) x10*3/uL Absolute Nucleated RBC 0.000 (0.0-0.012) X10*3/uL Nucleated RBC % (auto) 0.0 (0.0-0.2) /100WBC Discharge Plan Discharge Prescriptions: No Action melatonin 3 mg tablet 3 mg PO BEDTIME PRN (Reason: Sleep) albuterol sulfate [Ventolin HFA] 90 mcg/actuation HFA aerosol inhaler 2 puff INHALATION Q4H PRN (Reason: wheezing) multivitamin with folic acid [Daily-Claudio (with folic acid)] 400 mcg tablet 1 tab PO DAILY loratadine 10 mg Tablet 10 mg PO DAILY Qty: 30 0RF prednisone 20 mg tablet 40 mg PO DAILY Qty: 8 0RF nicotine (polacrilex) 2 mg gum 2 mg buccal Q2H Qty: 100 0RF Print Language: Chinese
[2024-09-20 21:19] LABS: SLIDE REVIEW VERIFIED
[2024-09-20 21:25] LABS: Influenza A PCR NEGATIVE (Negative); Influenza B PCR NEGATIVE (Negative); Resp Syncy Virus RNA Qual PCR NEGATIVE (Negative); SARS COV2 PCR INHOUSE NEGATIVE (Negative)
[2024-09-20 21:36] LABS: Alanine Aminotransferase 14 U/L (0-31); Alkaline Phosphatase 107 U/L (39-117); Aspartate Amino Transferase 22 U/L (5-31); Bilirubin Total 0.7 mg/dL (0.0-1.0); Blood Urea Nitrogen 7 mg/dL (9-16); Calcium 9.4 mg/dL (8.4-10.2); Creatinine Clr Calc Pharmacy 108.4; Estimated Glomerular Filt Rate > 60; Glucose Random 128 mg/dL (60-115); Magnesium 1.7 mg/dL (1.6-2.6); Total Protein 7.2 g/dL (6.5-8.0)
[2024-09-20 22:10] VITALS: BP 119/67; PULSE 103; RESP 27; TEMP 36.8; O2SAT 94
[2024-09-20 22:22] LABS: Anion Gap 15 (12-20); Carbon Dioxide 23 mmol/L (22-29); Chloride 103 mmol/L (96-108); Potassium 4.1 mmol/L (3.3-5.1); Sodium 137 mmol/L (135-145)
[2024-09-21] VITALS (12 sets, daily range): BP systolic 100–114; BP diastolic 55–73; PULSE 78–89; RESP 16–22; TEMP 36.1–37; O2SAT 88–95; BMI 27.7
[2024-09-21] MEDS: cefTRIAXone sodium 1 GM VIAL IVPUSH ×2 (00:45→18:17)
[2024-09-21] MEDS: Azithromycin 500 MG in 0.9 % Sodium Chloride 250 ML 125 MG IV ×2 (00:45→18:17)
[2024-09-21] MEDS: 0.9 % Sodium Chloride 1,000 ML 999 ML IVCONT (00:48)
--- NOTE | 2024-09-21 01:08 | P.HPHOSP_ITS ---
History of Present Illness Date of Service: 09/21/24 Chief Complaint: Dyspnea This has a 44-year-old female with pertinent history of asthma not on home oxygen, tobacco use disorder who presents to the emergency department for evaluation of dyspnea. Patient states her symptoms started 1 day prior to presentation. She has been having cough with clear/yellowish sputum production. Also has been having associated dyspnea which is worse with exertion. Has wheezing which is not relieved with the home inhaler. Patient was hospitalized about a month ago for asthma exacerbation. No documented temperature but admits chills. No chest pain, palpitations, abdominal pain, changes in urinary or bowel habits. In the emergency department, patient was satting 82% on room air. Patient was placed on supplemental oxygen and given DuoNebs and IV steroids. Imaging with diffuse bilateral tree in bud consolidations. Review of Systems 2 Constitutional: Constitutional: Reports fatigue and Reports malaise Cardiovascular: Cardiovascular: Reports dyspnea on exertion Respiratory: Respiratory: Reports cough, Reports dyspnea on exertion and Reports wheezing Gastrointestinal: Gastrointestinal: Reports no additional gastrointestinal complaints Genitourinary: Genitourinary: Reports no additional female genitourinary complaints Endocrine: Endocrine: Reports fatigue Allergic/Immunologic: Allergic/Immunologic: Reports wheezing [facility] Medical History Cigarette smoker Asthma Pertinent family history: No family history of early CAD Social History Household Members: Family Housing: Apartment Do you presently have visiting nurse or other home services: No Patient Tobacco Use Status: Current everyday Tobacco user Tobacco use type: Cigarette Cigarettes Per Day: 3 Substance Use Type: Marijuana Meds Allergies Allergy/AdvReac Type Severity Reaction Status Date / Time No Known Allergies Allergy Verified 09/20/24 20:25 Active Medications: Current Medications Azithromycin 500 mg/ Sodium (Chloride) 250 mls @ 125 mls/hr IV ONCE ONE Stop: 09/21/24 02:12 Last Admin: 09/21/24 00:45 Dose: 125 mls/hr Sodium Chloride (Ns) 1,000 mls @ 999 mls/hr IVCONT .Q1H1M ONE Stop: 09/21/24 01:13 Last Admin: 09/21/24 00:48 Dose: 999 mls/hr Home Medications ?Medication ?Instructions ?Recorded ?Confirmed ?Last Taken ?Type albuterol sulfate 90 mcg/actuation 2 puff inhalation Q4H PRN wheezing 08/18/24 08/18/24 Unknown History aerosol inhaler (Ventolin HFA) melatonin 3 mg tablet 3 mg PO BEDTIME PRN Sleep 08/18/24 08/18/24 Unknown History multivitamin with folic acid 400 1 tab PO DAILY 08/18/24 08/18/24 Unknown History mcg tablet (Daily-Caludio (with folic acid)) Physical Exam 2 Vital Signs and Narrative: Vital Signs: Last Vital Signs Temp 98.6 F 09/21/24 00:44 Pulse 89 09/21/24 00:44 Resp 22 H 09/21/24 00:44 BP 114/71 09/21/24 00:44 Pulse Ox 94 09/21/24 00:44 O2 Del Method Nasal Cannula 09/21/24 00:44 O2 Flow Rate 3 09/21/24 00:44 BMI result Body Mass Index 26.3 Middle-aged female lying in bed in mild distress on supplemental oxygen Neck supple, no JVD Regular rate and rhythm, S1-S2 heard Bilateral wheezing present Abdomen soft nontender, no guarding, no rigidity Patient is awake, alert and oriented to self, place, time and person ; no focal motor deficit Psych: Normal mood No pedal edema Results Labs 09/20/24 20:41 09/20/24 21:00 Labs: Laboratory Results - last 24 hr 09/20/24 09/20/24 20:41 21:00 MCV 91.6 MCH 31.6 MCHC 34.5 RDW 13.2 Plt Count 282 D MPV 9.7 Immature Gran % (Auto) 0.8 H Neut % (Auto) 87.2 H Lymph % (Auto) 6.4 L [place] % (Auto) 5.2 Eos % (Auto) 0.1 Baso % (Auto) 0.3 Lymph # (Auto) 1.7 [place] # (Auto) 1.4 H Eos # (Auto) 0.0 Baso # (Auto) 0.1 Abs Immat Gran (auto) 0.21 H Absolute Neuts (auto) 23.7 H Absolute Nucleated RBC 0.000 Nucleated RBC % (auto) 0.0 Smear Tech's Comments VERIFIED Anion Gap 15 Estim Creat Clear Calc 108.4 Estimated GFR > 60 Random Glucose 128 H Calcium 9.4 Magnesium 1.7 Total Bilirubin 0.7 AST 22 ALT 14 Alkaline Phosphatase 107 Total Protein 7.2 Albumin 4.0 Influenza Type A (PCR) NEGATIVE Influenza Type B (PCR) NEGATIVE RSV RNA Qual (PCR) NEGATIVE SARS-CoV-2 RNA (RT-PCR) NEGATIVE Assessment and Plan (1) Hypoxia: Status: Acute (2) Asthma exacerbation: Qualifiers: Asthma persistence: persistent Asthma severity: moderate Qualified Code(s): J45.41 - Moderate persistent asthma with (acute) exacerbation Status: Acute Plan This has a 44-year-old female with pertinent history of asthma not on home oxygen, tobacco use disorder who presents to the emergency department for evaluation of dyspnea. #. Acute hypoxemic respiratory failure due to community acquired pneumonia leading to acute asthma exacerbation: Will admit patient with supplemental oxygen, wean as tolerated. Scheduled and p.r.n. DuoNebs. Initiating systemic steroids and IV abx for CAP. Continue home inhaler #. Tobacco use disorder: NRT Med rec pending DVT prophylaxis: Lovenox Full Code Admit as inpatient and will require two night minimum hospital stay for supplemental oxygen, IV abx (as above), which is not possible in a lesser acute setting. Quality Stroke Does the patient have a stroke diagnosis?: No VTE Prior VTE?: No VTE Risk Level:: Medical - moderate - high VTE Device Contraindication: Treatment Not Indicated VTE Drug Contraindication: N/A - Med Ordered
[2024-09-21] MEDS: guaiFEN/Codeine SF 200/20/10ML 10 ML LIQUID 5 ML PO (01:39)
[2024-09-21] MEDS: Benzonatate 100 MG CAPSULE 200 MG PO ×2 (01:40→10:10)
[2024-09-21] MEDS: Enoxaparin Sodium 40 MG/0.4 ML SYRINGE SUBCUT (01:40)
[2024-09-21 04:36] LABS: Basophils Percent Auto 0.1 % (0-2); Hematocrit 37.8 % (37.0-47.0); Hemoglobin 12.7 g/dl (12.0-16.0); Imm Gran Abs Auto 0.14 X10*3/uL (0.00-0.03); Imm Gran Pct Auto 0.6 % (0.0-0.4); Lymphocytes Absolute Auto 0.9 X10*3/uL (1.2-4.9); Lymphocytes Percent Auto 3.8 % (20-40); MANUAL DIFF FLAG SCAN; Mean Corpuscular HGB Conc 33.6 g/dl (31.0-35.0); Mean Corpuscular Hemoglobin 31.2 pg (27.0-33.0); Mean Corpuscular Volume 92.9 fL (80.0-98.0); Mean Platelet Volume 9.4 fL (9.4-12.3); Monocytes Absolute Auto 0.2 X10*3/uL (0.1-1.2); Monocytes Percent Auto 0.8 % (2-11); Neutrophils Absolute Auto 21.7 x10*3/uL (2.0-8.3); Neutrophils Percent Auto 94.7 % (45-73); Platelet Count 253 X10*3/uL (160-400); Red Blood Count 4.07 X10*6/uL (4.20-5.50); Red Cell Distribution Width 13.2 % (11.0-16.0); SCAN SMEAR FLAG 1; White Blood Count 22.9 X10*3/uL (4.8-10.8)
[2024-09-21 04:53] LABS: Anion Gap 10 (12-20); Blood Urea Nitrogen 7 mg/dL (9-16); Calcium 8.9 mg/dL (8.4-10.2); Carbon Dioxide 24 mmol/L (22-29); Chloride 108 mmol/L (96-108); Creatinine Clr Calc Pharmacy 116.8; Estimated Glomerular Filt Rate > 60; Glucose Random 169 mg/dL (60-115); Potassium 4.1 mmol/L (3.3-5.1); Sodium 138 mmol/L (135-145)
[2024-09-21] MEDS: guaiFENesin 200 MG/10 ML 10 ML LIQUID PO ×2 (08:20→14:30)
[2024-09-21] MEDS: 0.9 % Sodium Chloride Flush 3 ML SYRINGE IVFLUSH ×2 (08:21→14:32)
[2024-09-21] MEDS: predniSONE 20 MG TABLET 40 MG PO (08:21)
[2024-09-21] MEDS: Loratadine 10 MG TABLET PO (08:21)
[2024-09-21] MEDS: guaiFENesin DM 600/30 1 TAB TAB.ER.12H PO ×2 (08:21→20:09)
--- NOTE | 2024-09-21 09:07 | PHA.MEDREC ---
Pharmacy Consult ? Medication Reconciliation Pharmacy has completed the medication reconciliation. Spoke to pt to confirm meds.
[2024-09-21] MEDS: Albuterol/Iprat 2.5/0.5MG 3 ML AMPUL.NEB INHALE ×4 (09:11→19:51)
[2024-09-21 10:23] LABS: Adenovirus PCR Not Detected (Not Detect.); Bordetella parapertussis PCR Not Detected (Not Detect.); Bordetella pertussis PCR Not Detected (Not Detect.); Chlamydia pneumoniae PCR Not Detected (Not Detect.); Coronavirus 229E PCR Not Detected (Not Detect.); Coronavirus HKU1 PCR Not Detected (Not Detect.); Coronavirus NL63 PCR Not Detected (Not Detect.); Coronavirus OC43 PCR Not Detected (Not Detect.); Human metapneumovirus PCR Not Detected (Not Detect.); Influenza A PCR Not Detected (Not Detect.); Influenza B PCR Not Detected (Not Detect.); Mycoplasma pneumoniae PCR Not Detected (Not Detect.); Parainfluenza 1 PCR Not Detected (Not Detect.); Parainfluenza 2 PCR Not Detected (Not Detect.); Parainfluenza 3 PCR Not Detected (Not Detect.); Parainfluenza 4 PCR Not Detected (Not Detect.); RSV PCR Not Detected (Not Detect.); Rhino/Enterovirus PCR Not Detected (Not Detect.)
--- NOTE | 2024-09-21 11:16 | P.PNIM_ITS ---
Subjective Subjective Date of Service: 09/21/24 Interval History: asthma excerebation Review of Systems sob similar -sob withminimal excersion no fever Physical Exam 2 Vital Signs: Vital Signs: Last Vital Signs Temp 97.0 F 09/21/24 07:26 Pulse 88 09/21/24 09:15 Resp 16 09/21/24 09:15 BP 100/64 09/21/24 07:26 Pulse Ox 91 L 09/21/24 07:26 O2 Del Method Nasal Cannula 09/21/24 07:26 O2 Flow Rate 3 09/21/24 07:26 BMI result Body Mass Index 27.7 Appearance: Alert.? Oriented X3.? cvs: rrr, [id number] . res: air entry diminshed ,wheezing b/l. abd: no rebound or guarding ,nt, bs present. ext pulses present , no cyanosis . neuro: axo3 , nonfocal. Objective Data Active Medications Acetaminophen (Acetaminophen 325 Mg Tablet) 650 mg PO Q6H PRN PRN Reason: Pain, Mild 1-3,fever,headache Albuterol/Ipratropium (Albuterol/Iprat 2.5/0.5mg 3 Ml Ampul.Neb) 3 ml INHALE Q4H PRN PRN Reason: Shortness of Breath/Wheezing Albuterol/Ipratropium (Albuterol/Iprat 2.5/0.5mg 3 Ml Ampul.Neb) 3 ml INHALE RQ4H WHILE AWAKE [facility] Last Admin: 09/21/24 09:11 Dose: 3 ml Documented By: ANTONIA Benzonatate (Benzonatate 100 Mg Capsule) 200 mg PO TID PRN PRN Reason: Cough Last Admin: 09/21/24 10:10 Dose: 200 mg Documented By: GIANLUCA Calcium Carbonate (Calcium Carbonate 750 Mg Tab.Chew) 750 mg PO Q4H PRN PRN Reason: Heartburn Ceftriaxone Sodium (Ceftriaxone Sodium 1 Gm Vial) 1 gm IVPUSH Q24H [facility] Enoxaparin Sodium (Enoxaparin Sodium 40 Mg/0.4 Ml Syringe) 40 mg SUBCUT Q24H [facility] Last Admin: 09/21/24 01:40 Dose: 40 mg Documented By: YULI Guaifenesin (Guaifenesin 200 Mg/10 Ml 10 Ml Liquid) 10 ml PO Q6H PRN PRN Reason: Cough Last Admin: 09/21/24 08:20 Dose: 10 ml Documented By: GIANLUCA Guaifenesin/Dextromethorphan (Guaifenesin Dm 600/30 1 Tab Tab.Er.12h) 1 tab PO BID [facility] Last Admin: 09/21/24 08:21 Dose: 1 tab Documented By: GIANLUCA Azithromycin 500 mg/ Sodium (Chloride) 250 mls @ 125 mls/hr IV Q24H [facility] Loratadine (Loratadine 10 Mg Tablet) 10 mg PO DAILY [facility] Last Admin: 09/21/24 08:21 Dose: 10 mg Documented By: GIANLUCA Magnesium Hydroxide (Milk Of Magnesia 30 Ml Oral.Susp) 30 ml PO DAILY PRN PRN Reason: Constipation Melatonin (Melatonin 3 Mg Tablet) 6 mg PO BEDTIME PRN PRN Reason: Insomnia Ondansetron HCl (Ondansetron Hcl 4 Mg/2 Ml Vial) 4 mg IVPUSH Q8H PRN PRN Reason: Nausea and Vomiting Prednisone (Prednisone 20 Mg Tablet) 40 mg PO DAILY [facility] Last Admin: 09/21/24 08:21 Dose: 40 mg Documented By: GIANLUCA Sodium Chloride (0.9 % Sodium Chloride Flush 3 Ml Syringe) 3 ml IVFLUSH QSHIFT [facility] Last Admin: 09/21/24 08:21 Dose: 3 ml Documented By: GIANLUCA Labs 09/21/24 04:28 09/21/24 04:28 Labs: Laboratory Results - last 24 hr 09/20/24 09/20/24 09/21/24 20:41 21:00 04:28 MCV 91.6 92.9 MCH 31.6 31.2 MCHC 34.5 33.6 RDW 13.2 13.2 Plt Count 282 D 253 MPV 9.7 9.4 Immature Gran % (Auto) 0.8 H 0.6 H Neut % (Auto) 87.2 H 94.7 H Lymph % (Auto) 6.4 L 3.8 L [place] % (Auto) 5.2 0.8 L Eos % (Auto) 0.1 0.0 Baso % (Auto) 0.3 0.1 Lymph # (Auto) 1.7 0.9 L [place] # (Auto) 1.4 H 0.2 Eos # (Auto) 0.0 0.0 Baso # (Auto) 0.1 0.0 Abs Immat Gran (auto) 0.21 H 0.14 H Absolute Neuts (auto) 23.7 H 21.7 H Absolute Nucleated RBC 0.000 0.000 Nucleated RBC % (auto) 0.0 0.0 Smear Tech's Comments VERIFIED Anion Gap 15 10 L Estim Creat Clear Calc 108.4 116.8 Estimated GFR > 60 > 60 Random Glucose 128 H 169 H Lactic Acid 1.0 Calcium 9.4 8.9 Magnesium 1.7 Total Bilirubin 0.7 AST 22 ALT 14 Alkaline Phosphatase 107 Total Protein 7.2 Albumin 4.0 Influenza Type A (PCR) NEGATIVE Influenza Type B (PCR) NEGATIVE RSV RNA Qual (PCR) NEGATIVE SARS-CoV-2 RNA (RT-PCR) NEGATIVE Assessment and Plan (1) Hypoxia: Status: Acute (2) Asthma exacerbation: Status: Acute Assessment and Plan: 44-year-old female with pertinent history of asthma not on home oxygen, tobacco use disorder who presents to the emergency department for evaluation of dyspnea. Acute hypoxemic respiratory failure due to community acquired pneumonia leading to acute asthma exacerbation: continue supplemental oxygen, wean as tolerated. Scheduled and p.r.n. DuoNebs. Initiating systemic steroids and IV abx for CAP. Continue home inhaler Tobacco use disorder: NRT dvt prophylax: s/c lovenox. ongoing need : Acute hypoxemic respiratory failure due to community acquired pneumonia leading to acute asthma exacerbation-respiratory status not improving ,iv antibiotics , nebs ,steriods. Quality Stroke Does the patient have a stroke diagnosis?: No VTE Prior VTE?: No VTE Risk Level:: Medical - moderate - high VTE Device Contraindication: Treatment Not Indicated VTE Drug Contraindication: N/A - Med Ordered
[2024-09-21 11:52] LABS: Influenza A H1 PCR Not Detected (Not Detect.); Influenza A H1-2009 PCR Not Detected (Not Detect.); Influenza A H3 PCR Not Detected (Not Detect.); SARS-CoV-2 PCR Not Detected (Not Detect.)
--- NOTE | 2024-09-21 15:19 | MHC.CM.PN ---
PATIENT LIVES IN AN APT W/ ADULT DAUGHTER. FUNCTIONALLY INDEPENDENT. HAS A NEBULIZER. NO SERVICES. PCP TIM BOURNE @ [facility] NO HCP. CM PROVIDED EDUCATION AND OFFERED ASSISTANCE. PATIENT DECLINED. DP: GOAL IS HOME SELF CARE. DAUGHTER TO TRANSPORT. CM WILL CONTINUE TO FOLLOW.
[2024-09-22] MEDS: Enoxaparin Sodium 40 MG/0.4 ML SYRINGE SUBCUT (01:03)
[2024-09-22] MEDS: guaiFENesin 200 MG/10 ML 10 ML LIQUID PO ×2 (06:19→10:40)
[2024-09-22 07:38] VITALS: BP 126/70; PULSE 86; RESP 12; TEMP 36.2; O2SAT 89
[2024-09-22] MEDS: cefuroxime axetiL 500 MG TABLET PO (08:45)
[2024-09-22] MEDS: Loratadine 10 MG TABLET PO (08:46)
[2024-09-22] MEDS: 0.9 % Sodium Chloride Flush 3 ML SYRINGE IVFLUSH (08:46)
[2024-09-22] MEDS: guaiFENesin DM 600/30 1 TAB TAB.ER.12H PO (08:46)
[2024-09-22] MEDS: Azithromycin 500 MG TABLET PO (08:46)
[2024-09-22] MEDS: predniSONE 20 MG TABLET 40 MG PO (08:46)
[2024-09-22] MEDS: Albuterol/Iprat 2.5/0.5MG 3 ML AMPUL.NEB INHALE (08:55)
[2024-09-22 09:14] VITALS: O2SAT 91
--- NOTE | 2024-09-22 10:04 | PM.DS ---
DS: Providers Provider Date of Service: 09/22/24 Date of admission: 09/21/24 01:07 Date of discharge: 09/22/24 Primary care physician: Unknown Physician Attending physician on discharge: Joann Villeda Discharging clinician: Joann Villeda DS: Diagnosis Discharge Diagnosis (1) Hypoxia: Status: Acute (2) Asthma exacerbation: Status: Acute DS: Summary Hospital Course Hospital Course: HPI:44-year-old female with pertinent history of asthma not on home oxygen, tobacco use disorder who presents to the emergency department for evaluation of dyspnea. Patient states her symptoms started 1 day prior to presentation. She has been having cough with clear/yellowish sputum production. Also has been having associated dyspnea which is worse with exertion. Has wheezing which is not relieved with the home inhaler. Patient was hospitalized about a month ago for asthma exacerbation. No documented temperature but admits chills. No chest pain, palpitations, abdominal pain, changes in urinary or bowel habits. In the emergency department, patient was satting 82% on room air. Patient was placed on supplemental oxygen and given DuoNebs and IV steroids. Imaging with diffuse bilateral tree in bud consolidations. Hospital course: 44-year-old female with pertinent history of asthma not on home oxygen, tobacco use disorder who presents to the emergency department for evaluation of dyspnea: Patient was found to have leukocytosis, dyspnea, CT chest shows bilateral consolidations possible pneumonia, blood cultures sent: Patient was started on IV antibiotics for pneumonia, also nebs, steroids for asthma exacerbation ,so patient aAcute hypoxemic respiratory failure due to community acquired pneumonia leading to acute asthma exacerbation. With the above supportive care patient seems to be improved significantly, leukocytosis improving, cough also improving, shortness of breath improved.Patient tapered off oxygen and her sats are 91% on room air. Walking without any shortness of breath.Blood culture negative at 24 hours. Patient is currently improved significantly and she is wishing to go home: Patient will be going home on p.o. Ceftin 500 b.i.d. for 7 days, azithromycin 500 daily for 5 days, prednisone 40 for 4 days, loratadine and cough medications p.r.n. Patient was advised to get chest imaging in 3-4 weeks to see resolution of pneumonia outpatient with PCP. Monitor CBC outpatient. plan: p.o. Ceftin 500 b.i.d. for 7 days, azithromycin 500 daily for 5 days, prednisone 40 for 4 days, loratadine and cough medications p.r.n. Patient was advised to get chest imaging in 3-4 weeks to see resolution of pneumonia outpatient with PCP. Monitor CBC outpatient. Above management discussed with the patient detail length she understand and in agreement with the above plan, all questions addressed. Total time spent 40 minute. Time Attestation Total time managing care of this patient today: 40 mintues. Discharge Coordination Time (in mins): 40 min Quality: Safe Use of Opioids Does Pt have an Active Cancer Diagnosis on the Problem List?: No Quality: Stroke Does the patient have a stroke diagnosis?: No Physical Exam Vital Signs: Vital Signs: Last Vital Signs Temp 97.1 F 09/22/24 07:38 Pulse 86 09/22/24 07:38 Resp 12 09/22/24 07:38 BP 126/70 09/22/24 07:38 Pulse Ox 91 L 09/22/24 09:14 O2 Del Method Room Air 09/22/24 09:14 O2 Flow Rate 3 09/21/24 07:26 BMI result Body Mass Index 27.7 Appearance: Alert.? Oriented X3. cvs: rrr, [id number] . res: air entry fair ,no rales or wheezing abd: no rebound or guarding ,nt, bs present. ext pulses present , no cyanosis . neuro: axo3 , nonfocal. DS: Data Data Completed and Pending Labs on day of discharge: Laboratory Results - last 24 hr 09/21/24 08:29 Respiratory Panel [place] See Note Adenovirus (Rapid PCR) Not Detected B.pert (TEM-PCR) Not Detected B.parapertussis DNA PCR Not Detected C. pneumoniae DNA (PCR) Not Detected Coronavirus OC43 (PCR) Not Detected Coronavirus HKU1 (PCR) Not Detected Coronavirus 229E (PCR) Not Detected Coronavirus NL63 (PCR) Not Detected Human Metapneumovir PCR Not Detected Influenza A (RT-PCR) Not Detected Influenza A (H1) PCR Not Detected Influ A (H1/09) PCR Not Detected Influenza A (H3) PCR Not Detected Influenza B (RT-PCR) Not Detected M. pneumoniae (PCR) Not Detected Parainfluenza 1 (PCR) Not Detected Parainfluenza 2 (PCR) Not Detected Parainfluenza 3 (PCR) Not Detected Parainfluenza 4 (PCR) Not Detected RSV (PCR) Not Detected Entero/Rhino (PCR) Not Detected SARS-CoV-2 RNA (RT-PCR) Not Detected Preliminary micro results at discharge 09/21/24 04:28 Blood Culture - Preliminary Blood - Venous No growth after 24 hours. 09/21/24 04:28 Blood Culture - Preliminary Blood - Venous No growth after 24 hours. Imaging Chest x-ray: My impression: ct chest: 1. Diffuse bilateral tree-in-bud nodular consolidations. Endobronchial pneumonia or aspiration suspected. 2. Mild mediastinal and hilar adenopathy, likely reactive. Discharge Plan Discharge Anticipated Discharge Date/Time: 09/22/24 09:52 Patient Disposition: Home, Self-Care Discharge Diagnosis: asthma excerebation,pneumonia Referrals: Physician,Unknown J [Primary Care Provider] - 1 Week Discharge Medications: New guaifenesin 100 mg/5 mL Liquid 5 mg PO Q6H PRN (Reason: Cough) Qty: 100 0RF benzonatate 100 mg Capsule 200 mg PO TID PRN (Reason: Cough) Qty: 15 0RF cefuroxime axetil 500 mg Tablet 500 mg PO BID Qty: 14 0RF loratadine 10 mg Tablet 10 mg PO DAILY Qty: 10 0RF azithromycin 500 mg Tablet 500 mg PO DAILY Qty: 5 0RF prednisone 20 mg Tablet 40 mg PO DAILY Qty: 8 0RF Continued albuterol sulfate [Ventolin HFA] 90 mcg/actuation HFA aerosol inhaler 2 puff INHALATION Q4H PRN (Reason: wheezing) nicotine (polacrilex) 2 mg gum 2 mg buccal Q2H PRN (Reason: Nicotine Cravings) Rx Instructions: MAX 24 A DAY Discharge Orders: Discharge Order (Routine); Ordered 09/22/24 Ordered By: Joann Villeda Diet: Advance to usual diet Activity on Discharge: As tolerated Stand Alone Forms: Patient Portal Discharge page Print Language: Tajik Care Plan Goals: 44-year-old female with pertinent history of asthma not on home oxygen, tobacco use disorder who presents to the emergency department for evaluation of dyspnea: Patient was found to have leukocytosis, dyspnea, CT chest shows bilateral consolidations possible pneumonia,, blood cultures sent: Patient was started on IV antibiotics for pneumonia, also nebs, steroids for asthma exacerbation. With the above supportive care patient seems to be improved significantly, leukocytosis improving, cough also improving, shortness of breath improved.Patient is sats are 91% on room air. Blood culture negative at 24 hours. Patient is currently improved significantly and she is wishing to go home: Patient will be going home on p.o. Ceftin 500 b.i.d. for 7 days, azithromycin 500 daily for 5 days, prednisone 40 for 4 days, loratadine and cough medications p.r.n. Patient was advised to get chest imaging in 3-4 weeks to see resolution of pneumonia outpatient with PCP. Monitor CBC outpatient. Health Concerns: As above. Plan of Treatment: p.o. Ceftin 500 b.i.d. for 7 days, azithromycin 500 daily for 5 days, prednisone 40 for 4 days, loratadine and cough medications p.r.n. Patient was advised to get chest imaging in 3-4 weeks to see resolution of pneumonia outpatient with PCP. Monitor CBC outpatient. Assessment: as above. Patient Instructions: Community Acquired Pneumonia (DC) Discharge Date/Time: 09/22/24 10:45
--- NOTE | 2024-09-22 10:22 | MHC.CM.PN ---
Patient medically cleared for dc home self care. Private transport.
== END 2024-09-22 10:45 | disposition home or self-care (01) | DRG 139 ==
LOC: HO.ED 09-21 00:16 → HO.EDOVER 09-21 01:09 → HO.S3 09-21 01:54
PROVIDERS: Physician Assistant Medical; Admitting Provider Student in an Organized Health Care Education/Training Program; Emergency Provider Emergency Medicine; PCP Internal Medicine; Visit Provider Internal Medicine
DX: J18.9 Pneumonia, unspecified organism (principal); J96.01 Acute respiratory failure with hypoxia; J45.41 Moderate persistent asthma with (acute) exacerbation; F17.210 Nicotine dependence, cigarettes, uncomplicated; J44.0 Chronic obstructive pulmonary disease with (acute) lower respiratory infection; Z20.822 Contact with and (suspected) exposure to COVID-19; Z71.6 Tobacco abuse counseling; Z79.899 Other long term (current) drug therapy
CPT/HCPCS: 0241U; 36415; 71045; 71250; 80048; 80053; 83605; 83735; 85025; 87040; 87633; 94640; 99285; J0456; J0696; J1650; J2919; J3475

== ENCOUNTER → 2024-09-20 20:24 | Outpatient (BNV) | payer MEDICAID, SELFPAY | PROVIDERS: Emergency Provider Emergency Medicine; Visit Provider Radiology Diagnostic Radiology | DX: R05.9 Cough, unspecified (principal); R50.9 Fever, unspecified; R09.02 Hypoxemia | CPT/HCPCS: 71045 ==

== ENCOUNTER 2024-09-21 01:07 | Outpatient (BNV) | payer MEDICAID, SELFPAY | END 2024-09-21 01:20 | PROVIDERS: Admitting Provider Student in an Organized Health Care Education/Training Program; Emergency Provider Emergency Medicine; Visit Provider Radiology Diagnostic Radiology | DX: J18.9 Pneumonia, unspecified organism (principal) | CPT/HCPCS: 71250 ==

== ENCOUNTER → 2024-09-21 01:07 | Outpatient (BNV) | payer MEDICAID, SELFPAY | PROVIDERS: Admitting Provider Student in an Organized Health Care Education/Training Program; Emergency Provider Emergency Medicine; Visit Provider Student in an Organized Health Care Education/Training Program | DX: J96.01 Acute respiratory failure with hypoxia (principal); J45.41 Moderate persistent asthma with (acute) exacerbation | CPT/HCPCS: 99239 ==

== ENCOUNTER 2025-05-13 13:56 | Emergency (ER) | payer MEDICAID, SELFPAY ==
[2025-05-13] VITALS (12 sets, daily range): BP systolic 89–120; BP diastolic 53–68; PULSE 82–102; RESP 14–22; TEMP 36.7–37.3; O2SAT 88–98; BMI 29.5
--- NOTE | ~2025-05-13 | XR_ITS ---
EXAMINATION: XR CHEST 2 VIEWS HISTORY: Low SaO2 COMPARISON: Comparison is made with the prior examination dated 09/20/2024. FINDINGS: PA and lateral views of the chest are submitted. The lungs are expanded and clear. There is no pleural effusion, pneumothorax, or pulmonary vascular congestion. The heart is normal in size. The bones are intact. XR/XR chest 2V IMPRESSION: No acute cardiopulmonary abnormality. Electronically signed by: Meir Hayes MD 05/13/2025 02:43 PM EST
--- NOTE | 2025-05-13 14:31 | ED.GENADULT ---
HPI - General Adult General Chief complaint: General Medical Stated complaint: flu symptoms Time Seen by Provider: 05/13/25 15:49 Source: patient Mode of arrival: ambulatory Limitations: no limitations History of Present Illness ED Provider: Dr. Glover [facility] narrative: 45-year-old female presented hospital today for cough nasal congestion, chills fever. And generalized weakness. She is also complaining of body wide aches. Patient states she has the flu. She is also complaining of some shortness of breath. Related Data Home Medications ?Medication ?Instructions ?Recorded ?Confirmed albuterol sulfate 90 mcg/actuation 2 puff inhalation Q4H PRN wheezing 08/18/24 09/21/24 aerosol inhaler (Ventolin HFA) nicotine (polacrilex) 2 mg gum 2 mg buccal Q2H PRN Nicotine 09/21/24 09/21/24 Cravings Previous Rx's ?Medication ?Instructions ?Recorded azithromycin 500 mg tablet 500 mg PO DAILY #5 tabs 09/22/24 benzonatate 100 mg capsule 200 mg (2 x 100 mg) PO TID PRN 09/22/24 Cough #15 caps cefuroxime axetil 500 mg tablet 500 mg PO BID #14 tabs 09/22/24 guaifenesin 100 mg/5 mL oral liquid 5 mg (0.25 mL) PO Q6H PRN Cough 09/22/24 #100 mL loratadine 10 mg tablet 10 mg PO DAILY #10 tabs 09/22/24 prednisone 20 mg tablet 40 mg (2 x 20 mg) PO DAILY #8 tabs 09/22/24 amoxicillin 875 mg-potassium 1 tab PO Q12H 7 days #14 tabs 05/13/25 clavulanate 125 mg tablet doxycycline hyclate 100 mg tablet 100 mg PO BID 7 days #14 tabs 05/13/25 ipratropium 0.5 mg-albuterol 3 mg 3 ml inhalation QID PRN shortness 05/13/25 (2.5 mg base)/3 mL nebulization of breath #90 mL soln prednisone 50 mg tablet 50 mg PO DAILY 7 days #7 tabs 05/13/25 Allergies Allergy/AdvReac Type Severity Reaction Status Date / Time No Known Allergies Allergy Verified 05/13/25 14:26 Review of Systems Review of Systems: Pertinent review of systems as mentioned in HPI. All other system otherwise negative. PMFSH Past Medical History [facility] Narrative: Medical history as mentioned in HPI Medical History Cigarette smoker Asthma Social History Social History Household Members: Family Housing: Apartment Do you presently have visiting nurse or other home services: No Patient Tobacco Use Status: Current everyday Tobacco user Tobacco use type: Cigarette Cigarettes Per Day: 3 Smoked in Last 30 Days: Yes Use of substances other than those prescribed or required for medical reasons: No Substance Use Type: Marijuana Advance Directives: No Advance Directives Information Provided: No Patient : No service: No Physical Exam ED Exam Exam: General: Pleasant, no distress, interacting appropriately Head: Normacephalic, atraumatic ENT: oral mucosa moist, neck supple, no tracheal deviation Cardiovascular: regular rate, regular rhythm, no murmurs, rubbing, gallops Respiratory: Bilateral wheezing on exam Gastrointestinal: Soft, non distended, non tender, non guarding Neurological: Awake and alert, no facial droop noted Skin: Warm and dry Psychiatric: Appropriate mood and thoughts Vital Signs: Vital Signs - 24 hr 05/13/25 14:25 05/13/25 14:53 05/13/25 17:20 Temperature 98.2 F 99.1 F Pulse Rate 102 H 84 100 Respiratory Rate 18 18 20 Blood Pressure 120/68 102/68 Pulse Oximetry 88 L 95 Oxygen Delivery Method Room Air Nasal Cannula Oxygen Flow Rate 2 05/13/25 17:51 05/13/25 18:16 05/13/25 18:32 Temperature 98.4 F Pulse Rate 95 95 Respiratory Rate 22 H 18 Blood Pressure 89/53 L 101/63 Pulse Oximetry 94 97 88 L Oxygen Delivery Method Nasal Cannula Room Air Oxygen Flow Rate 05/13/25 18:35 05/13/25 19:28 05/13/25 20:04 Temperature Pulse Rate 94 Respiratory Rate Blood Pressure 107/63 Pulse Oximetry 94 98 90 L Oxygen Delivery Method Nasal Cannula Room Air Oxygen Flow Rate 2 05/13/25 20:10 05/13/25 20:29 05/13/25 21:35 Temperature 98.1 F Pulse Rate 92 82 82 Respiratory Rate 15 14 14 Blood Pressure 101/65 98/62 98/62 Pulse Oximetry 92 95 95 Oxygen Delivery Method Room Air Nasal Cannula Nasal Cannula Oxygen Flow Rate 2 2 BMI result Body Mass Index 29.5 Medications Administered Discontinued Medications Generic Name Dose Route Start Last Admin Trade Name gM PRN Reason Stop Dose Admin Acetaminophen 975 mg 05/13/25 16:51 05/13/25 17:12 Acetaminophen 325 Mg Tablet PO 05/13/25 16:52 975 mg ONCE ONE Administration Azithromycin 500 mg 05/13/25 16:50 05/13/25 17:12 Azithromycin 500 Mg Tablet PO 05/13/25 16:51 500 mg ONCE ONE Administration Albuterol Sulfate 5 mg/ 0 mg 05/13/25 14:53 05/13/25 14:55 Albuterol/Ipratropium 3 ml INHALE 05/13/25 14:54 7.5 each ONCE ONE Administration Magnesium Sulfate 2 gm in 50 mls @ 150 mls/hr 05/13/25 14:31 05/13/25 18:08 Magnesium Sulfate/H2o IV 05/13/25 14:50 Infused ONCE ONE Infusion Ceftriaxone Sodium 2 gm/ 50 mls @ 100 mls/hr 05/13/25 16:50 05/13/25 17:42 Sodium Chloride IV 05/13/25 17:19 Infused ONCE ONE Infusion Sodium Chloride 1,000 mls @ 999 mls/hr 05/13/25 17:00 05/13/25 20:00 Ns IV 05/13/25 18:00 Infused .Q1H1M JACLYN Infusion Ketorolac Tromethamine 15 mg 05/13/25 16:51 05/13/25 17:12 Ketorolac Tromethamine 15 Mg/Ml Vial IVPUSH 05/13/25 16:52 15 mg ONCE ONE Administration Methylprednisolone Sodium Succinate 60 mg 05/13/25 14:31 05/13/25 17:13 Methylprednisolone Sod Succ 125 Mg/2 Ml Vial IVPUSH 05/13/25 14:32 60 mg ONCE ONE Administration Prednisone 50 mg 05/13/25 18:36 05/13/25 18:51 Prednisone 10 Mg Tablet PO 05/13/25 18:37 50 mg ONCE ONE Administration Medical Decision Making Medical Decision Making MDM Narrative: 45-year-old female history of asthma presented hospital today for shortness of breath. Patient states she has URI symptoms for the past couple of days. Patient was given DuoNeb treatment, a dose of methylprednisone here. The patient's lab work did show elevated leukocytosis 24.8. We will obtain chest x-ray to evaluate for any sign of pneumonia chemistry will be obtained. IV magnesium has been ordered for the patient. We will give patient a dose IV fluid as well. Given the patient's elevated leukocytosis we will plan to cover her with IV ceftriaxone azithromycin. She currently does not meet SIRS criteria based on isolated leukocytosis. Patient is hypoxic on RA at 89%. She is not normally on O2. Patient's chest x-ray is unremarkable. Flu RSV swab was negative. Patient is tachycardic has resolved. On reassessment patient is satting at 92% on room air. She is no longer shortness of breath. Did discuss the option of admitting the patient to the hospital for further observation and treatment versus discharging home with close return precaution. Patient's like to be discharged home at this time as she is feeling better. She no longer feels short of breath. She is asymptomatic. Patient has no sign of tachypnea on exam. Able to ambulate without any issues. We will plan to discharge patient home. We will plan to send her home with some antibiotics, prednisone. And cartridges for nebulizer treatment at home. Return precautions provided to return to ER if she have shortness of breath. Patient agrees and understands this plan. All questions were addressed. Differential Diagnosis Differential Diagnoses: The differential diagnosis associated with the presentation includes Flu, COVID, pneumonia, asthma exacerbation Lab Data MDM Lab Attestation statement: I reviewed the patient's lab results. 05/13/25 15:40 05/13/25 15:40 Labs: Lab Results 05/13/25 05/13/25 Range/Units 15:40 17:05 WBC 24.8 H (4.8-10.8) X10*3/uL RBC 4.62 (4.20-5.50) X10*6/uL Hgb 14.3 (12.0-16.0) g/dl Hct 42.8 (37.0-47.0) % MCV 92.6 (80.0-98.0) fL MCH 31.0 (27.0-33.0) pg MCHC 33.4 (31.0-35.0) g/dl RDW 12.8 (11.0-16.0) % Plt Count 338 D (160-400) X10*3/uL MPV 9.1 L (9.4-12.3) fL Immature Gran % (Auto) 0.5 H (0.0-0.4) % Neut % (Auto) 87.5 H (45-73) % Lymph % (Auto) 7.5 L (20-40) % Sharp % (Auto) 3.9 (2-11) % Eos % (Auto) 0.4 (0-4) % Baso % (Auto) 0.2 (0-2) % Lymph # (Auto) 1.9 (1.2-4.9) X10*3/uL Sharp # (Auto) 1.0 (0.1-1.2) X10*3/uL Eos # (Auto) 0.1 (0.0-0.4) X10*3/uL Baso # (Auto) 0.1 (0.0-0.2) X10*3/uL Abs Immat Gran (auto) 0.12 H (0.00-0.03) X10*3/uL Absolute Neuts (auto) 21.7 H (2.0-8.3) x10*3/uL Absolute Nucleated RBC 0.000 (0.0-0.012) X10*3/uL Nucleated RBC % (auto) 0.0 (0.0-0.2) /100WBC Smear Tech's Comments VERIFIED Sodium 138 (135-145) mmol/L Potassium 4.5 (3.3-5.1) mmol/L Chloride 101 (96-108) mmol/L Carbon Dioxide 28 (22-29) mmol/L Anion Gap 14 (12-20) BUN 8 L (9-16) mg/dL Creatinine 0.70 (0.5-1.4) mg/dL Estim Creat Clear Calc 93.0 Estimated GFR > 60 Random Glucose 116 H (60-115) mg/dL Lactic Acid 1.4 (0.5-2.0) mmol/L Calcium 9.5 D (8.4-10.2) mg/dL Total Bilirubin 0.6 (0.0-1.0) mg/dL AST 21 (5-31) U/L ALT 11 (0-31) U/L Alkaline Phosphatase 115 (39-117) U/L Total Protein 7.8 (6.5-8.0) g/dL Albumin 4.4 (3.5-5.0) g/dL Influenza Type A (PCR) NEGATIVE (Negative) Influenza Type B (PCR) NEGATIVE (Negative) RSV RNA Qual (PCR) NEGATIVE (Negative) SARS-CoV-2 RNA (RT-PCR) NEGATIVE (Negative) Independent Interpretation I performed an independent interpretation of an: Plain X-Ray Radiology Impression Discussion of test interpretation with radiology: I have reviewed the radiologist's reading. Chronic Conditions Asthma Critical Care Time Critical Care Time Critical Care Time: Yes Total Critical Care Time: 40 Attestation: Time is exclusive of separately billable procedures. Time includes: direct patient care, patient reassessment, coordination of patient care, interpretation of data (laboratory data, pulse oximetry, arterial blood gases and chest xrays), review of patient's medical records, medical consultation and documentation of patient care. Procedures excluded from critical care time: central intravenous line placement and electrocardiography. Discharge Plan Discharge Clinical Impression: Asthma exacerbation Qualifiers: Asthma severity: moderate Asthma persistence: persistent Qualified Code(s): J45.41 - Moderate persistent asthma with (acute) exacerbation Patient Disposition: Home, Self-Care Instructions: Asthma (ED) Additional Instructions: Follow up with your primary care doctor for your asthma exacerbation. Take the antibiotic and steroid as instructed. Return to ED if your shortness of breath returns. Prescriptions: New prednisone 50 mg tablet 50 mg PO DAILY 7 Days Qty: 7 0RF ipratropium-albuterol 0.5 mg-3 mg(2.5 mg base)/3 mL solution for nebulization 3 ml inhalation QID PRN (Reason: shortness of breath) Qty: 90 0RF doxycycline hyclate 100 mg tablet 100 mg PO BID 7 Days Qty: 14 0RF amoxicillin-pot clavulanate 875-125 mg tablet 1 tab PO Q12H 7 Days Qty: 14 0RF No Action albuterol sulfate [Ventolin HFA] 90 mcg/actuation HFA aerosol inhaler 2 puff INHALATION Q4H PRN (Reason: wheezing) nicotine (polacrilex) 2 mg gum 2 mg buccal Q2H PRN (Reason: Nicotine Cravings) Rx Instructions: MAX 24 A DAY guaifenesin 100 mg/5 mL Liquid 5 mg PO Q6H PRN (Reason: Cough) Qty: 100 0RF benzonatate 100 mg Capsule 200 mg PO TID PRN (Reason: Cough) Qty: 15 0RF cefuroxime axetil 500 mg Tablet 500 mg PO BID Qty: 14 0RF loratadine 10 mg Tablet 10 mg PO DAILY Qty: 10 0RF azithromycin 500 mg Tablet 500 mg PO DAILY Qty: 5 0RF prednisone 20 mg Tablet 40 mg PO DAILY Qty: 8 0RF Stand Alone Forms: Work/School Release Interventions: ED Discharge Assessment Last Done: 05/13/25 21:35 Discharge Date/Time: 05/13/25 21:37 Print Language: Faroese
[2025-05-13] MEDS: Albuterol Sulfate 5 MG, Albuterol/Iprat 2.5/0.5MG 3 ML 3 ML INHALE (14:55)
--- NOTE | 2025-05-13 15:22 | MHC.EDTECH ---
called pt 5X in the waiting room, no response
--- NOTE | 2025-05-13 15:32 | MHC.EDTECH ---
pt was found in RP getting a breathing treatment!
[2025-05-13 15:53] LABS: Hematocrit 42.8 % (37.0-47.0); Hemoglobin 14.3 g/dl (12.0-16.0); Imm Gran Abs Auto 0.12 X10*3/uL (0.00-0.03); Imm Gran Pct Auto 0.5 % (0.0-0.4); Lymphocytes Absolute Auto 1.9 X10*3/uL (1.2-4.9); MANUAL DIFF FLAG SCAN; Mean Corpuscular HGB Conc 33.4 g/dl (31.0-35.0); Mean Corpuscular Hemoglobin 31.0 pg (27.0-33.0); Mean Corpuscular Volume 92.6 fL (80.0-98.0); NRBC Abs Auto 0.000 X10*3/uL (0.0-0.012); NRBC Pct Auto 0.0 /100WBC (0.0-0.2); Platelet Count 338 X10*3/uL (160-400); Red Blood Count 4.62 X10*6/uL (4.20-5.50); SCAN SMEAR FLAG 1; White Blood Count 24.8 X10*3/uL (4.8-10.8)
--- NOTE | 2025-05-13 16:02 | PC.RT ---
pt given duoneb 7.5 mg in results pending as there were no ed beds available. after neb tx was done appx 20 minutes, pt had her 02 off and her sats were 83%. placed back on 3 l n/c and sats up to 93%. pt was moved to [address]. Charge nurse Domitila aware and was prompt getting her a room [place].
[2025-05-13 16:07] LABS: Alanine Aminotransferase 11 U/L (0-31); Albumin Level 4.4 g/dL (3.5-5.0); Alkaline Phosphatase 115 U/L (39-117); Anion Gap 14 (12-20); Aspartate Amino Transferase 21 U/L (5-31); Blood Urea Nitrogen 8 mg/dL (9-16); Calcium 9.5 mg/dL (8.4-10.2); Carbon Dioxide 28 mmol/L (22-29); Chloride 101 mmol/L (96-108); Creatinine Clr Calc Pharmacy 93.0; Estimated Glomerular Filt Rate > 60; Potassium 4.5 mmol/L (3.3-5.1); Sodium 138 mmol/L (135-145); Total Protein 7.8 g/dL (6.5-8.0)
[2025-05-13 16:31] LABS: Resp Syncy Virus RNA Qual PCR NEGATIVE (Negative); SARS COV2 PCR INHOUSE NEGATIVE (Negative)
[2025-05-13] MEDS: Magnesium Sulfate/H2O 2 GM/50 ML PIGGYBACK IV (17:48)
--- NOTE | 2025-05-13 18:21 | PC.NURSE ---
IVF pt ivf continue to run slowly
--- NOTE | 2025-05-13 19:31 | PC.NURSE ---
pts ivf continue to run, she has been reminded to try to keep her arm straight to help increase the speed in which they are infusing
--- OUTSIDE RECORDS SUMMARY | 2025-05-13 22:44 | XMS_ITS | Clinical Summary ---
Author Organization [employer] Address [address] [facility] [address] [place] [address] Care Team Providers Care Way Inspector Name Role Phone Demetrio Gonzales MD Primary [...] needed for wheezing. 18 g 1 05/27/2024 Active loratadine (Claritin) 10 MG tablet Take 1 tablet by mouth Once per day. 08/19/2024 Active Active Problems Problem Noted Date Diagnosed [...] or failure to improve Chronic bipolar disorder ([facility]) 03/26/2024 Schizophrenia 03/26/2024 Tobacco dependence 03/26/2024 Assessment [...] fridge. Injury happened 04/12/22. Attending PT at [facility] PT 2 x a week. Pain [...] Encounters Date Type Department Care Team Description 05/13/2025 Orders Only [facility] External Provider, [facility] 03/11/2025 Telephone [facility] [address] [place] [address] Demetrio Gonzales MD RV APPT from Last 3 Months Immunizations Immunization Administration Dates Next Due Influenza injectable quadriv [...] Date Smoking Tobacco: Every Day Cigarettes 0.3 33.9 Started: 06/05/1991 Smokeless Tobacco: Never Tobacco Cessation:Ready [...] 100 05/24/2024 3:41 PM EST Temperature 36.6 C (97.8 F) 05/24/2024 3:41 PM EST Respiratory Rate 20 05/24/2024 3:41 PM EST [...] 1978 FIT 1978 FOBT 1978 Sigmoidoscopy 1978 Disability Screening 1978 Alcohol/Substance Use Screening 1990 Family Planning (PISQ) 1993 Hepatitis A Vaccines (1 of 2 - Risk 2-dose series) 1997 Hepatitis B Vaccines (1 of 3 - 19+ 3-dose series) 1997 Pap Smear 1999 Cervical Cancer Screening 02/22/2008 HPV/Cotest 02/22/2008 Pneumococcal Vaccine: Pediatrics (0 to 5 Years) and At-Risk Patients (6 to 49) Years (2 of 2 - PCV) 03/05/2021 03/05/2020 Depression Screening 11/03/2023 11/02/2022, 11/03/19 23 SDOH Screening 11/03/2023 11/02/2022 Mammogram 09/23/2024 09/23/2022, 03/0 02/2022, 08/11/2021 COVID-19 Vaccine ( - season) 2025 Influenza Vaccine (#1) 2025 2, 03/05/2020, 03/05/2020, Additional history exists Tobacco Screening 05/24/2025 05/24/2024 Lipid Panel 11/19/2027 [...] patient's age to complete this topic Meningococcal B Vaccine Aged Out No l onger eligible based on patient's age to complete [...] Procedure Name Priority Date/Time Associated Diagnosis Comments LACTIC ACID Routine 05/13/2025 5:05 PM EST SLIDE REVIEW Routine 05/13/2025 3:40 PM EST COMPREHENSIVE METABOLIC PANEL Routine 05/13/2025 3:40 PM EST CBC WITH AUTO DIFFERENTIAL Routine 05/13/2025 3:40 PM EST SARS COV2/INFLUENZA A/B AND RSV RNA QL NAAT Routine 05/13/2025 3:40 PM EST XR CHEST 2 VIEWS Routine 05/13/2025 2:37 PM EST HIV 1 RNA, QN PCR W/RFL CAROL (RTI,PI,INTEGRASE) Routine 11/18/2022 11:28 AM EDT Hx of hepatitis C LIPID PANEL, STANDARD Routine 11/18/2022 11:28 AM EDT Hx of hepatitis C BI MAMMOGRAM SCREENING TOMOSYNTHESIS BILATERAL Routine 09/23/2022 2:15 PM EDT from Last 3 Months or Most Recently Relevant to Health Maintenance Results * Lactic Acid (05/13/2025 5:05 PM EST) Lactic Acid 1.4 0.5 - 2.0 mmol/L [facility] 05/13/2025 5:05 PM EST 05/13/2025 5:11 PM EST us Generic External Data Provider LAB BLOOD ORDERAB LES Final Result [facility] [address] [place] [phone] * Slide Review (05/13/2025 3:40 PM EST) Slide Review VERIFIED [facility] 05/13/2025 3:40 PM EST 05/13/2025 3:50 PM EST [facility] - 05/13/2025 4:57 PM EST called pt 5X in the waiting room, no response Generic External Data Provider LAB BLOOD ORDERAB LES Final Result Performing Organization Address [facility] Co de Phone Number [facility] [address] [place] [phone] * SARS-CoV-2 RNA, Influenza A/B, and RSV RNA, Ql NAAT (05/13/2025 3:40 PM EST) Influenza A PCR NEGATIVE Negative [facility] Influenza B PCR NEGATIVE Negative [facility] Resp Syncy Virus RNA Qual PCR NEGATIVE Negative [facility] SARS COV2 PCR NEGATIVE Negative [facility] Comment:All test results mus t [...] use by authorized laboratories.Testing performed on the [employer] GeneXpert utilizingreal-time RT-PCR.All SARS CoV2 and positive influenza A/B results arereported to [facility]. 05/13/2025 3:40 PM EST 05/13/2025 3:50 PM EST [facility] - 05/13/2025 4:32 PM EST called pt 5X in the waiting room, no response us Generic External Data Provider LAB MICROBIOLOGY - GENERAL ORDERABLES Final Result Performing Organization Address [facility] Co de Phone Number [facility] [address] [place] [phone] * (ABNORMAL) CBC auto differential (05/13/2025 3:40 PM EST) White Blood Count 24.8(H) 4.8 - 10.8 X10*3/uL [facility] Red Blood Count 4.62 4.20 - 5.50 X10*6/uL [facility] Hemoglobin 14.3 12.0 - 16.0 g/dl [facility] Hematocrit 42.8 37.0 - 47.0 % [facility] Mean Corpuscular Volume 92.6 80.0 - 98.0 fL [facility] Mean Corpuscular Hemoglobin 31.0 27.0 - 33.0 pg [facility] Mean Corpuscular HGB Conc 33.4 31.0 - 35.0 g/dl [facility] Red Cell Distribution Width 12.8 11.0 - 16.0 % [facility] Platelet Count 338 160 - 400 X10*3/uL [facility] Mean Platelet Volume 9.1(L) 9.4 - 12.3 fL [facility] Neutrophils Percent Auto 87.5(H) 45 - 73 % [facility] Imm Gran Pct Auto 0.5(H) 0.0 - 0.4 % [facility] Lymphocytes Percent Auto 7.5(L) 20 - 40 % [facility] Monocytes Percent Auto 3.9 2 - 11 % [facility] Eosinophils Percent Auto 0.4 0 - 4 % [facility] Basophils Percent Auto 0.2 0 - 2 % [facility] NRBC Pct Auto 0.0 0.0 - 0.2 /100WBC [facility] Neutrophils Absolute Auto 21.7(H) 2.0 - 8.3 x10*3/uL [facility] Imm Gran Abs Auto 0.12(H) 0.00 - 0.03 X10*3/uL [facility] Lymphocytes Absolute Auto 1.9 1.2 - 4.9 X10*3/uL [facility] Monocytes Absolute Auto 1.0 0.1 - 1.2 X10*3/uL [facility] Eosinophils Absolute Auto 0.1 0.0 - 0.4 X10*3/uL [facility] Basophils Absolute Auto 0.1 0.0 - 0.2 X10*3/uL [facility] NRBC Abs Auto 0.000 0.0 - 0.012 X10*3/uL [facility] 05/13/2025 3:40 PM EST 05/13/2025 3:50 PM EST Narrative [facility] - 05/13/2025 4:57 PM EST called pt 5X in the waiting room, no response us Generic External Data Provider LAB BLOOD ORDERAB LES Edited Result - Final [facility] [address] [place] [phone] * (ABNORMAL) Comprehensive Metabolic Panel (05/13/2025 3:40 PM EST) Sodium 138 135 - 145 mmol/L [facility] Potassium 4.5 3.3 - 5.1 mmol/L [facility] Chloride 101 96 - 108 mmol/L [facility] Carbon Dioxide 28 22 - 29 mmol/L [facility] Anion Gap 14 12 - 20 [facility] Urea Nitrogen (BUN) 8(L) 9 - 16 mg/dL [facility] Creatinine, Serum 0.70 0.5 - 1.4 mg/dL [facility] Creatinine Clr Calc Pharmacy 93.0 [facility] Comment:Provided height and weight: 157.48 cm,73.2 kg.eGFR (calculated from the MDRD study equation) and eCrCl(calculated from the Cockcroft-Gault equation) are based ondifferent parameters and may not yield comparable results.If eCrCl result is absurd, please check patient'sheight/weight. Estimated Glomerular Filt Rate >60 [facility] Comment:Chronic Kidney Disea se: Estimated GFR < 60 mL/min/1.00j6Lvwwdt Kidney Disease: Estimated GFR < 15 mL/min/1.73m2 Glucose 116(H) 60 - 115 mg/dL [facility] Calcium 9.5 8.4 - 10.2 mg/dL [facility] Bilirubin, Total 0.6 0.0 - 1.0 mg/dL [facility] Aspartate Amino Transferase 21 5 - 31 U/L [facility] Alanine Aminotransferase 11 0 - 31 U/L [facility] Total Protein 7.8 6.5 - 8.0 g/dL [facility] Albumin Level 4.4 3.5 - 5.0 g/dL [facility] Alkaline Phosphatase 115 39 - 117 U/L [facility] 05/13/2025 3:40 PM EST 05/13/2025 3:50 PM EST Narrative [facility] - 05/13/2025 4:07 PM EST called pt 5X in the waiting room, no response us Generic External Data Provider LAB BLOOD ORDERAB LES Final Result Performing Organization Address City/State/[facility] Co de Phone Number [facility] [address] [place] [phone] * XR Chest 2 Views (05/13/2025 2:37 PM EST) Anatomical Region Laterality Modality Chest Radiographic Ilda ging 05/13/2025 2:37 PM EST Narrative 05/13/2025 2:45 PM EST [address] [address] XRay Report Signed Patient: Anne Galloway MR#: [id number] : 1980 Acct:[id number] Age/Sex: 45 / F ADM Date: 05/13/25 Loc: HO.ED Attending Dr: Ordering Physician: Generic ED Physician Date of Service: 05/13/25 Procedure(s): XR chest 2V Accession Number(s): [id number] cc: Demetrio Gonzales MD; Generic ED Physician Reason for Exam: Low SaO2 EXAMINATION: XR CHEST 2 VIEWS HISTORY: Low SaO2 COMPARISON: Comparison is made with the prior examination dated 09/20/2024. FINDINGS: PA and lateral views of the chest are submitted. The lungs are expanded and clear. There is no pleural effusion, pneumothorax, or pulmonary vascular congestion. The heart is normal in size. The bones are intact. XR/XR chest 2V IMPRESSION: No acute cardiopulmonary abnormality. Electronically signed by: Meir Hayes MD 05/13/2025 02:43 PM EST RP Dictated By: Meir Hayes MD Signed By: <Electronically signed by Meir Hayes MD in OV> 05/13/25 1443 DD/ 1437 TD/TT: 05/13/251434 Dry Heat Room Attendant: Procedure Note Donotuseinterpreter, Image - 05/13/2025 [place] [address] XRay Report Signed Patient: Patrick Galloway#: [id number] : 1980Acct:[id number] Age/Sex: 45 / FADM Date: 05/13/25 Loc: .ED Attending Dr: Ordering Physician: Generic ED Physician Date of Service: 05/13/25 Procedure(s): XR chest 2V Accession Number(s): [id number] cc: Demetrio Gonzales MD; Generic ED Physician Reason for Exam: Low SaO2 EXAMINATION: XR CHEST 2 VIEWS HISTORY: Low SaO2 COMPARISON: Comparison is made with the prior examination dated 09/20/2024. FINDINGS: PA and lateral views of the chest are submitted. The lungs are expanded and clear. There is no pleural effusion, pneumothorax, or pulmonary vascular congestion. The heart is normal in size. The bones are intact. XR/XR chest 2V IMPRESSION: No acute cardiopulmonary abnormality. Electronically signed by: Meir Hayes MD 05/13/2025 02:43 PM EST RP Dictated By: Meir Hayes MD Signed By: <Electronically signed by Meir Hayes MD in OV> 05/13/25 1443 DD/ 1437 TD/TT: 05/13/251434 Dry Heat Room Attendant: us [facility] External Provider IMG XR PROCEDURES Final Result * HIV-1 RNA, Quantitative, Real-Time PCR with Reflex to Genotype (RTI, PI, Integrase) (11/18/2022 11:28 AM EDT) HIV 1 RNA, QN PCR NOT DETECTED copies/mL [facility], HIV 1 RNA, QN PCR NOT DETECTED Log copies/mL [facility], Comment: REFERENCE RANGE: NOT DETECTED copies/mL NOT DETECTED Log copies/mL This test was performed using Real-Time Polymerase Chain Reaction. Reportable range is 20 to 10,000,000 copies/mL (1.30-7.00 Log copies/mL). 11/18/2022 11:2 8 AM EDT 11/18/2022 11:28 AM EDT Narrative [facility] - 11/24/2022 8:03 PM EDT FASTING:UNKNOWN FASTING: UNKNOWN Demetrio Gallegos MD LAB BLOOD ORDERABL ES Final Result [facility] [address], [place] [address] [facility], [address] [place] [address] * (ABNORMAL) Lipid Panel, Standard (11/18/2022 11:28 AM EDT) Cholesterol, Total 154 <200 mg/dL [facility] [employer] HDL Cholesterol 49(L) > OR = 50 mg/dL [facility] [employer] Triglycerides 53 <150 mg/dL [facility] [place] [employer] LDL Cholesterol 91 mg/dL (calc) [facility] [employer] Comment: Reference range: <100 Desirable range <100 mg/dL for primary prevention; <70 mg/dL for patients with CHD or diabetic patients with > or = 2 CHD risk factors. LDL-C is now calculated using the Michael calculation, which is a validated novel method providing better accuracy than the Friedewald equation in the estimation of LDL-C. Dayday CASIANO et al. MILAGRO. 2013;310(19): 8026-9506 (http://education.CommonBond/faq/EAJ426) Chol/HDLC Ratio 3.1 <5.0 (calc) [facility] Non-HDL Cholesterol 105 <130 mg/dL (calc) [facility] Comment: For patients with diabetes plus 1 major ASCVD risk factor, treating to a non-HDL-C goal of <100 mg/dL (LDL-C of <70 mg/dL) is considered a therapeutic option. Blood Venous blood specimen / Unknown 11/18/2022 11:28 AM EDT 11/18/2022 11:28 AM EDT Narrative [facility] - 11/24/2022 8:03 PM EDT FASTING:UNKNOWN FASTING: UNKNOWN Demetrio Gallegos MD LAB BLOOD ORDERABL ES Final Result [address], [place] [address] [facility] [address] [place] [address] * BI Mammogram Screening Tomosynthesis Bilateral (09/23/2022 2:15 PM EDT) Anatomical Region Laterality Modality Breast Bilateral Mammography 09/23/2022 2:15 PM EDT Narrative 09/27/2022 7:27 AM EDT [facility] [address] [place] [address] Mammography Report Signed Patient: Anne Galloway MR#: [id number] : 1980 Acct:[id number] Age/Sex: 42 / F ADM Date: 09/23/22 Loc: HO.MAMMO Attending Dr: Demetrio Gallegos MD Ordering Physician: Demetrio Gonzales MD Res ults: 2Benign Findings Date of Service: 09/23/22 Follow Up: 1 Year From Orig inal Mammogram Procedure(s): MM tomosynthesis screening BI Accession Number(s): [id number] cc: Demetrio Gonzales MD EXAMINATION: MM SCREENING [...] in OV> 09/27/22 0724 DD/ 1415 TD/TT: Dry Heat Room Attendant: MONIQUE Procedure Note Donotuseinterpreter, Image - 12/01/2022 [facility] [address] [place], [place] [address] Mammography Report Signed Patient: Anne Galloway#: [id number] : 1980Acct:[id number] Age/Sex: 42 / FADM Date: 09/23/22 Loc: HO.MAMMO Attending Dr: Demetrio Gallegos MD Ordering Physician: Demetrio Gonzales ults: 2Benign Findings Date of Service: 09/23/22Follow Up: 1 Year From Orig inal Mammogram Procedure(s): MM tomosynthesis screening BI Accession Number(s): [id number] cc: Demetrio Gonzales MD EXAMINATION: MM SCREENING [...] in OV> 09/27/22 0724 DD/ 1415 TD/TT: Dry Heat Room Attendant: MONIQUE [facility] External Provider IMG BI PROCEDURES Final Result from Last 3 Months or Most Recently Relevant to Health Maintenance Insurance [employer] C3 GENERIC TPL on file Care Teams Way Inspector Relationship Specialty Start Date End Date Demetrio Gonzales MD [address] [place] [phone] PCP - General Internal Medicine 03/27/19
--- OUTSIDE RECORDS SUMMARY | 2025-05-13 22:44 | XMS_ITS | Encounter Summary ---
Author Organization [employer] Address [address] [place] [address] [address] [place] [address] Care Team Providers Care Linking Machine Operator Name Role Phone Demetrio Gonzales MD Primary Care Prov ider Encounter Details Date Type Department Care Team (Latest Contact Info) Description 02/04/2021 Abstract [facility] CONVERSIONS Dental, Provider, DDS Social History Tobacco Use Types Packs/Day Years Used Date Smoking Tobacco: Never Assessed Comments Unknown Sex and Gender Information Value Date Recorded Sex Assigned at Female 04/04/2022 10:17 AM EDT Legal Sex Female 10:17 AM EDT Gender Identity Female 04/04/2022 10:17 AM EDT Sexual Orientation Don't know 04/04/2022 10 :17 AM EDT documented as of this encounter Plan of Treatment Not on file documented as of this encounter Visit Diagnoses Not on filedocumented in this encounter Care Teams Linking Machine Operator Relationship Specialty Start Date End Date Demetrio Gonzales MD [address] [place] [address] PCP - General Internal Medicine 03/27/19 documented as of this encounter
--- OUTSIDE RECORDS SUMMARY | 2025-05-13 22:44 | XMS_ITS | Clinical Summary ---
Author Organization [facility] Address [address] [place] [address] Care Team Providers Care Deckhand Crab Boat Name Role Phone Ref, Hasnopcp Primary Care Provider Unavailabl e Allergies No known active allergies Medications ondansetron [...] 89 03/28/2024 12:44 AM EDT Temperature 36.7 C (98 F) 03/27/2024 9:35 PM EDT Respiratory Rate 20 [...] of 3 - 19+ 3-dose series) 1997 Alcohol/Substance Use Screening 06/05/2024 Mammogram 09/23/2024 09/23/2022 Influenza Vaccine (#1) 2025 2, 03/05/2020, 03/25/2019 COVID-19 Vaccine (1 - 2024-2 6 season) 2025 DTaP,Tdap,and Td Vaccines (3 - Td or Tdap) 07/25/2029 07/25/2019, 10/08/2014 Pneumococcal Vaccine: Pediatric (0-5 Years) and At-Risk Patients (6-50 Years) Aged Out 03/05/2020 No longer eligible based on patient's age to complete this topic HIV Screening Completed 11/18/2022 Insurance [employer] Care Teams Deckhand Crab Boat Relationship Specialty Start Date End Date Ref, Lilli DO NOT EDIT THIS RECORD VIA PROVIDER ON THE FLY PCP - General Rotary Cutter 03/27/24
--- OUTSIDE RECORDS SUMMARY | 2025-05-13 22:44 | XMS_ITS | Clinical Summary ---
Author Organization [facility] [employer] [facility] Address [address] [place] [address] Care Team Providers Care Newspaper Editor Managing Name Role Phone Unavailable Primary Care Provider [...] 88 07/08/2021 11:54 AM EST Temperature 36.8 C (98.2 F) 07/08/2021 11:54 AM EST Respiratory Rate 18 07/08/2021 11:54 AM EST Oxygen Saturation 98% 07/08/2021 11:54 AM EST Inhaled Oxygen Concentration - - Weight 77.1 kg (170 lb) 07/08/2021 11:54 AM EST Height 160 cm (5' 3 ) 07/08/2021 11:54 AM EST Body Mass Index 30.11 07/08/2021 11:54 AM EST Plan of Treatment Not on file Medical Devices Not on file
--- OUTSIDE RECORDS SUMMARY | 2025-05-13 22:45 | XMS_ITS | Encounter Summary ---
Author Organization [employer] Address [address] [facility] [address] [place] [address] Care Team Providers Care Renal Social Worker Name Role Phone Demetrio Gonzales MD Primary Care Prov ider Encounter Details Date Type Department Care Team (Late st Contact Info) Description 05/13/2025 Orders Only [facility] External Provider, [facility] Social History Tobacco Use Types Packs/Day Years Used Date Smoking Tobacco: Every Day Cigarettes 0.3 33.9 Started: 06/05/1991 Smokeless Tobacco: Never Depression Answer [...] SLIDE REVIEW Routine 05/13/2025 3:40 PM EST SARS COV2/INFLUENZA A/B AND RSV RNA QL NAAT Routine 05/13/2025 3:40 PM EST CBC WITH AUTO DIFFERENTIAL Routine 05/13/2025 3:40 PM EST COMPREHENSIVE METABOLIC PANEL Routine 05/13/2025 3:40 PM EST XR CHEST 2 VIEWS Routine 05/13/2025 2:37 PM EST documented in this encounter Results * Lactic Acid (05/13/2025 5:05 PM EST) Lactic Acid 1.4 0.5 - 2.0 mmol/L [facility] 05/13/2025 5:05 PM EST 05/13/2025 5:11 PM EST us Generic External Data Provider LAB BLOOD ORDERAB LES Final Result [facility] [address] [place] [address] [phone] * Slide Review (05/13/2025 3:40 PM EST) Slide Review VERIFIED [facility] 05/13/2025 3:40 PM EST 05/13/2025 3:50 PM EST Narrative [facility] - 05/13/2025 4:57 PM EST called pt 5X in the waiting room, no response us Generic External Data Provider LAB BLOOD ORDERAB LES Final Result Performing Organization Address [facility] Co de Phone Number [facility] [address] [place] [phone] * SARS-CoV-2 RNA, Influenza A/B, and RSV RNA, Ql NAAT (05/13/2025 3:40 PM EST) Pathologist [facility] Influenza A PCR NEGATIVE Negative [facility] Influenza B PCR NEGATIVE Negative [facility] Resp Syncy Virus RNA Qual PCR NEGATIVE Negative [facility] SARS COV2 PCR NEGATIVE Negative [facility] Comment:All test results mus t [...] use by authorized laboratories.Testing performed on the Eve GeneXpert utilizingreal-time RT-PCR.All SARS CoV2 and positive influenza A/B results arereported to [facility]. 05/13/2025 3:40 PM EST 05/13/2025 3:50 PM EST Narrative [facility] - 05/13/2025 4:32 PM EST called pt 5X in the waiting room, no response us Generic External Data Provider LAB MICROBIOLOGY - GENERAL ORDERABLES Final Result Performing Organization Address [facility]/ZIP Co de Phone Number [facility] [address] [place] [phone] * (ABNORMAL) Comprehensive Metabolic Panel (05/13/2025 3:40 PM EST) Sodium 138 135 - 145 mmol/L [facility] Potassium 4.5 3.3 - 5.1 mmol/L [facility] Chloride 101 96 - 108 mmol/L [facility] Carbon Dioxide 28 22 - 29 mmol/L [facility] Anion Gap 14 12 - 20 [facility] Urea Nitrogen (BUN) 8(L) 9 - 16 mg/dL [facility] Creatinine, Serum 0.70 0.5 - 1.4 mg/dL [facility] Creatinine Clr Calc Pharmacy 93.0 [facility] Comment:Provided height and weight: 157.48 cm,73.2 kg.eGFR (calculated from the MDRD study equation) and eCrCl(calculated from the Cockcroft-Gault equation) are based ondifferent parameters and may not yield comparable results.If eCrCl result is absurd, please check patient'sheight/weight. Estimated Glomerular Filt Rate >60 [facility] Comment:Chronic Kidney Disea se: Estimated GFR < 60 mL/min/1.07y9[place] Kidney Disease: Estimated GFR < 15 mL/min/1.73m2 Glucose 116(H) 60 - 115 mg/dL [facility] Calcium 9.5 8.4 - 10.2 mg/dL [facility] Bilirubin, Total 0.6 0.0 - 1.0 mg/dL [facility] Aspartate Amino Transferase 21 5 - 31 U/L [facility] Alanine Aminotransferase 11 0 - 31 U/L [facility] Total Protein 7.8 6.5 - 8.0 g/dL [facility] Albumin Level 4.4 3.5 - 5.0 g/dL [facility] Alkaline Phosphatase 115 39 - 117 U/L [facility] 05/13/2025 3:40 PM EST 05/13/2025 3:50 PM EST Narrative [facility] - 05/13/2025 4:07 PM EST called pt 5X in the waiting room, no response us Generic External Data Provider LAB BLOOD ORDERAB LES Final Result [facility] [address] [place] [phone] * (ABNORMAL) CBC auto differential (05/13/2025 3:40 PM EST) White Blood Count 24.8(H) 4.8 - 10.8 X10*3/uL [facility] Red Blood Count 4.62 4.20 - 5.50 X10*6/uL [facility] Hemoglobin 14.3 12.0 - 16.0 g/dl [facility] Hematocrit 42.8 37.0 - 47.0 % [facility] Mean Corpuscular Volume 92.6 80.0 - 98.0 fL [facility] Mean Corpuscular Hemoglobin 31.0 27.0 - 33.0 pg [facility] Mean Corpuscular HGB Conc 33.4 31.0 - 35.0 g/dl [facility] Red Cell Distribution Width 12.8 11.0 - 16.0 % [facility] Platelet Count 338 160 - 400 X10*3/uL [facility] Mean Platelet Volume 9.1(L) 9.4 - 12.3 fL [facility] Neutrophils Percent Auto 87.5(H) 45 - 73 % [facility] Imm Gran Pct Auto 0.5(H) 0.0 - 0.4 % [facility] Lymphocytes Percent Auto 7.5(L) 20 - 40 % [facility] Monocytes Percent Auto 3.9 2 - 11 % [facility] Eosinophils Percent Auto 0.4 0 - 4 % [facility] Basophils Percent Auto 0.2 0 - 2 % [facility] NRBC Pct Auto 0.0 0.0 - 0.2 /100WBC [facility] Neutrophils Absolute Auto 21.7(H) 2.0 - 8.3 x10*3/uL [facility] Imm Gran Abs Auto 0.12(H) 0.00 - 0.03 X10*3/uL [facility] Lymphocytes Absolute Auto 1.9 1.2 - 4.9 X10*3/uL [facility] Monocytes Absolute Auto 1.0 0.1 - 1.2 X10*3/uL [facility] Eosinophils Absolute Auto 0.1 0.0 - 0.4 X10*3/uL [facility] Basophils Absolute Auto 0.1 0.0 - 0.2 X10*3/uL [facility] NRBC Abs Auto 0.000 0.0 - 0.012 X10*3/uL [facility] 05/13/2025 3:40 PM EST 05/13/2025 3:50 PM EST Narrative [facility] - 05/13/2025 4:57 PM EST called pt 5X in the waiting room, no response us Generic External Data Provider LAB BLOOD ORDERAB LES Edited Result - Final Performing Organization Address City/State/[facility] Co de Phone Number [facility] [address] [place] [phone] * XR Chest 2 Views (05/13/2025 2:37 PM EST) Anatomical Region Laterality Modality Chest Radiographic Ilda ging 05/13/2025 2:37 PM EST Narrative 05/13/2025 2:45 PM EST [address] [address] XRay Report Signed Patient: Anne Galloway MR#: [id number] : 1980 Acct:[id number] Age/Sex: 45 / F ADM Date: 05/13/25 Loc: .ED Attending Dr: Ordering Physician: Generic ED Physician Date of Service: 05/13/25 Procedure(s): XR chest 2V Accession Number(s): [id number] cc: Demetrio Gonzales MD; Generic ED Physician [...] Hayes MD in OV> 05/13/25 1443 DD/ 36 TD/TT: 05/13/251434 Salon Designer: Procedure Note Donotuseinterpreter, Image - 05/13/[address] [address] XRay Report Signed Patient: Anne GallowayMR#: [id number] : 1980Acct:[id number] Age/Sex: 45 / FADM Date: 05/13/25 Loc: .ED Attending Dr: Ordering Physician: Generic ED Physician Date of Service: 05/13/25 Procedure(s): XR chest 2V Accession Number(s): [id number] cc: Demetrio Gonzales MD; Generic ED Physician [...] Hayes MD in OV> 05/13/25 1443 DD/ 36 TD/TT: 05/13/251434 Salon Designer: [facility] External Provider IMG XR PROCEDURES Final Result documented in this encounter Visit Diagnoses Not on filedocumented in this encounter Additional Health Concerns Assessment Noted Time PHQ-9 Depression Total Score: 0 11/03/19 23 11:18 AM EDT documented as of this encounter Care Teams Renal Social Worker Relationship Specialty Start Date End Date Demetrio Gonzales MD [address] [place] [phone] PCP - General Internal Medicine 03/27/19 documented as of this encounter
--- OUTSIDE RECORDS SUMMARY | 2025-05-13 22:45 | XMS_ITS | Encounter Summary ---
Author Organization [employer] Address [address] [place] [phone] Care Team Providers Care Search Manager Name Role Phone Demetrio Gonzales MD Primary Care Prov ider Reason for Visit * Reason Onset Date Comments Nurse Triage 07/31/2024 Encounter Details Date Type Department Care Team ([facility] st Contact Info) Description 07/31/[address] [facility] [address] [place] [address] Demetrio Gonzales MD [address] [place] [address] Nurse Triage Social History Tobacco Use Types [...] Triage call Pt reports being seen at [facility] ED 07/25/24 for head injury. Pt was [...] ED visit on : Date: 07/25/24 Hospital: [facility] Seen for: lump on head due to [...] documented as of this encounter Care Teams Search Manager Relationship Specialty Start Date End Date Demetrio Gonzales MD [address] [place] [phone] PCP - General Internal Medicine 03/27/19 documented as of this encounter
--- OUTSIDE RECORDS SUMMARY | 2025-05-13 22:45 | XMS_ITS | Encounter Summary ---
Author Organization [employer] Address [address] [place] [address] Care Team Providers Care Field Support Representative Name Role Phone Demetrio Gonzales MD Primary Care Prov ider Reason for Visit * Reason Onset Date Comments Med Refill 05/16/2023 Encounter Details Date Type Department Care Team ([facility] st Contact Info) Description 05/16/2023 Refill [facility] MED [facility] PEDS [address] [place] [address] Beronica Partida MD [address] [place] [phone] Mild intermittent asthma without complication Social History [...] documented as of this encounter Care Teams Field Support Representative Relationship Specialty Start Date End Date Demetrio Gonzales MD [address] [place] [phone] PCP - General Internal Medicine 03/27/19 documented as of this encounter
== END 2025-05-13 21:37 | disposition home or self-care (01) ==
PROVIDERS: Physician Assistant; Emergency Provider Student in an Organized Health Care Education/Training Program; PCP Internal Medicine
DX: J45.41 Moderate persistent asthma with (acute) exacerbation (principal); R53.1 Weakness; R05.9 Cough, unspecified; R06.02 Shortness of breath; F17.200 Nicotine dependence, unspecified, uncomplicated; Z71.6 Tobacco abuse counseling
CPT/HCPCS: 36415; 71046; 80053; 83605; 85025; 87040; 87637; 94640; 96361; 96365; 96375; 99285; J0696; J1885; J2919; J3475

== ENCOUNTER → 2025-05-13 14:30 | Outpatient (BNV) | payer MEDICAID, SELFPAY | PROVIDERS: PCP Internal Medicine; Visit Provider Radiology Diagnostic Radiology | DX: R09.02 Hypoxemia (principal) | CPT/HCPCS: 71046 ==